=== PATIENT | male | born 1955 | race Caucasian/White ===

== ENCOUNTER 2020-09-02 09:01 | Outpatient (REF) | payer MEDICARE, MEDICAID, SELFPAY ==
[2020-09-02 11:07] LABS: Alanine Aminotransferase 22 U/L (0-40); Albumin Level 3.5 g/dL (3.5-5.0); Alkaline Phosphatase 70 U/L (39-117); Anion Gap 13 (12-20); Aspartate Amino Transferase 18 U/L (5-37); Bilirubin Total 0.5 mg/dL (0.0-1.0); Blood Urea Nitrogen 19 mg/dL (9-16); Calcium 8.9 mg/dL (8.4-10.2); Carbon Dioxide 31 mmol/L (22-29); Chloride 101 mmol/L (96-108); Estimated Glomerular Filt Rate > 60; Glucose Random 89 mg/dL (60-115); Potassium 4.7 mmol/L (3.3-5.1); Sodium 140 mmol/L (135-145); Total Protein 7.2 g/dL (6.5-8.0); Uric Acid 4.9 mg/dL (3.4-7.0)
== END 2020-09-02 09:02 | disposition home or self-care (01) ==
LOC: HO.LAB 09:01
PROVIDERS: PCP Internal Medicine; Visit Provider Student in an Organized Health Care Education/Training Program
DX: M1A.00X0 Idiopathic chronic gout, unspecified site, without tophus (tophi) (principal)
CPT/HCPCS: 36415; 80053; 84550; 99212

== ENCOUNTER → 2021-09-03 09:56 | Outpatient (BNVA) | payer MEDICARE, SELFPAY | PROVIDERS: PCP Internal Medicine; Visit Provider Nurse Practitioner Family | DX: Z13.89 Encounter for screening for other disorder (principal) | CPT/HCPCS: 99212 ==

== ENCOUNTER 2021-09-03 10:50 | Outpatient (REF) | payer MEDICARE, MEDICAID, SELFPAY ==
[2021-09-03 12:26] LABS: Alanine Aminotransferase 25 U/L (0-40); Albumin Level 3.8 g/dL (3.5-5.0); Alkaline Phosphatase 72 U/L (39-117); Anion Gap 12 (12-20); Aspartate Amino Transferase 21 U/L (5-37); Bilirubin Total 0.9 mg/dL (0.0-1.0); Blood Urea Nitrogen 17 mg/dL (9-16); Calcium 9.7 mg/dL (8.4-10.2); Carbon Dioxide 31 mmol/L (22-29); Chloride 102 mmol/L (96-108); Estimated Glomerular Filt Rate > 60; Glucose Random 87 mg/dL (60-115); Potassium 4.4 mmol/L (3.3-5.1); Sodium 141 mmol/L (135-145); Total Protein 7.6 g/dL (6.5-8.0); Uric Acid 6.2 mg/dL (3.4-7.0)
== END 2021-09-03 10:51 | disposition home or self-care (01) ==
LOC: HO.LAB 10:50
PROVIDERS: PCP Internal Medicine; Visit Provider Nurse Practitioner Family
DX: M1A.00X0 Idiopathic chronic gout, unspecified site, without tophus (tophi) (principal)
CPT/HCPCS: 36415; 80053; 84550; 99212

== ENCOUNTER 2022-03-10 11:13 | Outpatient (REF) | payer MEDICARE, MEDICAID, SELFPAY ==
[2022-03-10 12:43] LABS: Blood Urea Nitrogen 23 mg/dL (9-16); Estimated Glomerular Filt Rate > 60; Uric Acid 5.9 mg/dL (3.4-7.0)
== END 2022-03-10 11:14 | disposition home or self-care (01) ==
LOC: HO.LAB 11:13
PROVIDERS: PCP Internal Medicine; Visit Provider Nurse Practitioner Family
DX: M10.9 Gout, unspecified (principal)
CPT/HCPCS: 36415; 82565; 84520; 84550

== ENCOUNTER → 2022-03-15 09:54 | Outpatient (BNVA) | payer MEDICARE, MEDICAID, SELFPAY | PROVIDERS: PCP Internal Medicine; Visit Provider Nurse Practitioner Family | DX: M1A.00X0 Idiopathic chronic gout, unspecified site, without tophus (tophi) (principal) | CPT/HCPCS: 99212 ==

== ENCOUNTER 2023-04-05 13:56 | Outpatient (AMB) | payer MEDICARE, MEDICAID, SELFPAY ==
--- NOTE | 2023-04-05 13:59 | MHC.OFFVIS ---
Intake Vital Signs 04/05/23 14:01 Height 5 ft 3 in Weight 150 lb 5.684 oz BMI 26.6 BP 126/72 Blood Pressure Location Rt brachial Position Sitting Temp 97.3 F Temp Source Skin Intake Visit Reasons: gout Intake Note: Pt last seen 03/15/22 by khloe Duarte uric acid 5.13 March 2022. Gout well controlled on allopurinol 100mg daily and colchicine prn. Admits 1 flare up in September . 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 Accompanied by: [facility] nurse Isaura Allergies No Known Allergies Allergy (Verified 04/05/23 14:04) Medication List - Last Reconciled 04/05/23 by Eligio Zapata MD acetaminophen (Tylenol) 650 mg PO Q6H PRN allopurinol 100 mg PO DAILY ammonium lactate 12% 1 appl topical BID atorvastatin 10 mg PO DAILY bacitracin zinc topical bisacodyl 10 mg OR DAILY PRN clotrimazole 1% 1 appl topical QAM AND QHS colchicine (gout) (Colcrys) 0.6 mg PO DAILY PRN docusate sodium 100 mg PO BID finasteride 5 mg PO DAILY ibuprofen 200 mg PO Q6H PRN levothyroxine 100 mcg PO DAILY polyethylene glycol 3350 17 grams PO DAILY selenium sulfide 1% (Anti-Dandruff) mL topical tamsulosin 0.4 mg PO DAILY terbinafine HCl 1% appl topical BEDTIME HPI HPI Comments History of Present Illness Details 66yoM with PMH significant for Down Syndrome presents for follow-up of gout. He is accompanied today by nursing staff. He was last seen by Jennifer Wilkins 03/2022 ?Taking Allopurinol 100mg daily. On p.r.n. colchicine Per his nurse, patient had 1 gout flare-up back in September of 2022. Treated with colchicine. No gout flare-ups otherwise. She states that over the last year he has been getting more stiff in the morning. Generalized stiffness improved with Tylenol. Denied any swollen joints. [facility] Medical History Gastrointestinal bleed High myopia Thalassemia minor Urinary retention Cataract of both eyes Hyperlipidemia Surgical History No pertinent past surgical history Social History Household Members: Other Housing: Assisted Living Facility Alcohol intake: never Patient Tobacco Use Status: Never used Tobacco Review of Systems Const Details: Patient has down syndrome, is mentally retarded and does not verbalize Unobtainable due to mental status Physical Exam Vital Signs: Last Vital Signs Temp 97.3 F 04/05/23 14:01 BP 126/72 04/05/23 14:01 BMI result Body Mass Index 26.6 Const General: cooperative, healthy appearing and comfortable Nutritional Appearance: overweight Limitations: no limitations HEENT Other: Down syndrome facies Head: Yes normocephalic and Yes atraumatic Mouth: moist mucous membranes Resp Effort & Inspection: normal respiratory effort and able to speak in complete sentences Auscultation: clear to auscultation bilaterally Skin Other: Purple cool upper and lower extremities Normal nailfold capillaroscopy Extrem Other: No active synovitis Assessment & Plan Assessment & Plan (1) Gout: Comment: Allopurinol: July 2018 to present Code(s): M10.9 - Gout, unspecified Qualifiers: Gout site: unspecified site Gout etiology: idiopathic Chronicity: chronic Presence of tophus: without tophus Qualified Code(s): M1A.00X0 - Idiopathic chronic gout, unspecified site, without tophus (tophi) Plan: 67-year-old male with Down syndrome and gout presents for follow-up.? First attack in August 2017 in his foot, second attack in May 2018 in his L knee. Has never undergone arthrocentesis for crystal analysis. On Allopurinol 100mg daily since Jul 2018. Per nursing staff, patient had 1 gout flare-up 6 months ago improved with colchicine. ? Continue allopurinol 100 mg daily. Continue colchicine 0.6 mg as needed for flare-ups. Check uric acid level Follow-up in 6 month (2) Osteoarthritis: Code(s): M19.90 - Unspecified osteoarthritis, unspecified site Qualifiers: Osteoarthritis location: multiple joints Osteoarthritis type: primary Qualified Code(s): M15.9 - Polyosteoarthritis, unspecified Plan: Per nurse over the last year patient has had generalized morning stiffness that improves with Tylenol. Stiffness lasts about 1 hour. Upon evaluation today I do not see any active synovitis. I believe this stiffness is likely due to osteoarthritis. Can take 650 mg daily as a standing dose. Plan I spent 27 minutes reviewing patient's chart, evaluating patient, ordering diagnostic workup, counseling patient and documenting in the chart Orders: Orders Uric Acid Today M10.9 - Gout, unspecified Comprehensive Met. Panel Today M10.9 - Gout, unspecified Coding Level of Care Code Est Pt Level 4 (69137) Diagnoses Idiopathic chronic gout without tophus, unspecified site M1A.00X0 Gout site: unspecified site Gout etiology: idiopathic Chronicity: chronic Presence of tophus: without tophus Primary osteoarthritis involving multiple joints M15.9 Osteoarthritis location: multiple joints Osteoarthritis type: primary
[2023-04-05 14:01] VITALS: BP 126/72; TEMP 36.3; BMI 26.6
== END 2023-04-05 14:28 | disposition home or self-care (01) ==
PROVIDERS: PCP Internal Medicine; Visit Provider Student in an Organized Health Care Education/Training Program
DX: M1A.00X0 Idiopathic chronic gout, unspecified site, without tophus (tophi) (principal); M15.9 Polyosteoarthritis, unspecified
CPT/HCPCS: 99214

== ENCOUNTER → 2023-04-05 13:56 | Outpatient (BNVA) | payer MEDICARE, MEDICAID, SELFPAY | PROVIDERS: Visit Provider Student in an Organized Health Care Education/Training Program | DX: M1A.00X0 Idiopathic chronic gout, unspecified site, without tophus (tophi) (principal); M15.9 Polyosteoarthritis, unspecified; Z79.899 Other long term (current) drug therapy | CPT/HCPCS: 99212 ==

== ENCOUNTER 2023-08-10 12:56 | Outpatient (AMB) | payer MEDICARE, MEDICAID, SELFPAY ==
--- NOTE | 2023-08-10 13:05 | MHC.OFFVIS ---
Intake Vital Signs 08/10/23 13:06 Height 5 ft 3 in Weight 151 lb 2 oz BMI 26.8 BP 124/76 Blood Pressure Location Rt brachial Position Sitting Respiration 16 Pulse 72 Pulse Source Palpation Intake Visit Reasons: ENP-Alzheimer's dementia Intake Note: Pt presents to the office for a new pt evaluation for dementia. Pt is here with ASIF Delarosa from the assisted living facility pt resides in. She reports pt has been having some confusion and trouble entering through doorways as well as following directions for about a year now. Cruise Coordinator Required: No Allergies No Known Allergies Allergy (Verified 08/10/23 13:06) Medication List - Last Reconciled 08/10/23 by Marlys Morrison MD acetaminophen (Tylenol) 650 mg (2 x 325 mg) PO .QD allopurinol 100 mg PO DAILY ammonium lactate 12% 1 appl topical BID atorvastatin 10 mg PO DAILY bacitracin zinc topical clotrimazole 1% 1 appl topical QAM AND QHS colchicine (Colcrys) 0.6 mg PO DAILY PRN docusate sodium 100 mg PO BID donepezil 10 mg PO BEDTIME finasteride 5 mg PO DAILY ibuprofen 200 mg PO Q6H PRN levothyroxine 100 mcg PO DAILY polyethylene glycol 3350 17 grams PO DAILY selenium sulfide 1% (Anti-Dandruff) mL topical tamsulosin 0.4 mg PO DAILY terbinafine HCl 1% appl topical BEDTIME HPI HPI Comments History of Present Illness Details 68y/o male with Downs syndrome comes here for evaluation of possible dementia He is accompanied by caregivers form [facility]. [facility] staff [facility] have been noticing a progressive decline in his cognition and behavior for past 2 years. He has trouble following instructions, has trouble recognizing people, has trouble with his ADLS ( he used to make his own Lunch ) He has difficulty dressing showering eating etc.He is more stubborn and does not follow instructions.He probably has hallucinations- he was seen picking some non existent thing form the floor.He has excessive daytime sleepiness. [facility] Medical History (Updated 08/10/23 @ 13:36 by Marlys Morrison MD) Alzheimer's dementia Hypothyroidism Prediabetes Vitamin D deficiency Gastrointestinal bleed High myopia Thalassemia minor Urinary retention Cataract of both eyes Hyperlipidemia Surgical History No pertinent past surgical history Social History Household Members: Other Housing: Assisted Living Facility Alcohol intake: never Patient Tobacco Use Status: Never used Tobacco Physical Exam Vital Signs: Last Vital Signs Pulse 72 08/10/23 13:06 Resp 16 08/10/23 13:06 BP 124/76 08/10/23 13:06 BMI result Body Mass Index 26.8 Const Other: unable to follow instructions exam was limited General: cooperative Neuro Other: mild wide based gait , waddling Moves all his extremities Tone - normal Face symmetrical Unable to examine pupils EOM full - dysconjugate gaze No tremors General: moves all extremities Deep tendon reflexes (DTR's): Right triceps reflex intensity grade: 1+, Left triceps reflex intensity grade: 1+, Rt Biceps (C5, C6): 1+, Left biceps reflex intensity grade: 1+, Right brachioradialis reflex intensity grade: 1+, Left brachioradialis reflex intensity grade: 1+, Right patellar reflex intensity grade: 1+ and Left patellar reflex intensity grade: 1+ Assessment & Plan Assessment & Plan (1) Alzheimer's dementia: Comment: moderate Code(s): G30.9 - Alzheimer's disease, unspecified; F02.80 - Dementia in other diseases classified elsewhere, unspecified severity, without behavioral disturbance, psychotic disturbance, mood disturbance, and anxiety Plan CT Brain- to evaluate Labs- Vit B 12 TSH CBC CMP RPR I will trial him Orders: Orders TSH reflex Free T4 Today F02.80 - Dementia in other diseases classified elsewhere, unspecified severity, without behavioral disturbance, psychotic disturbance, mood disturbance, and anxiety, G30.9 - Alzheimer's disease, unspecified Vitamin B12 and Folate Today F02.80 - Dementia in other diseases classified elsewhere, unspecified severity, without behavioral disturbance, psychotic disturbance, mood disturbance, and anxiety, G30.9 - Alzheimer's disease, unspecified Comprehensive Met. Panel Today F02.80 - Dementia in other diseases classified elsewhere, unspecified severity, without behavioral disturbance, psychotic disturbance, mood disturbance, and anxiety, G30.9 - Alzheimer's disease, unspecified Complete Blood Count Auto Diff Today F02.80 - Dementia in other diseases classified elsewhere, unspecified severity, without behavioral disturbance, psychotic disturbance, mood disturbance, and anxiety, G30.9 - Alzheimer's disease, unspecified RPR Monitor reflex titer Today F02.80 - Dementia in other diseases classified elsewhere, unspecified severity, without behavioral disturbance, psychotic disturbance, mood disturbance, and anxiety, G30.9 - Alzheimer's disease, unspecified CT head/brain wo IV con Today F03.90 - Unspecified dementia, unspecified severity, without behavioral disturbance, psychotic disturbance, mood disturbance, and anxiety Erythrocyte Sedimentation Rate Today F02.80 - Dementia in other diseases classified elsewhere, unspecified severity, without behavioral disturbance, psychotic disturbance, mood disturbance, and anxiety, G30.9 - Alzheimer's disease, unspecified Medications: New donepezil start with 1/2 tab qd for 2 weeks then 1 tab qd 10 mg PO BEDTIME 30 tabs 6RF Coding Level of Care Code New Pt Level 4 (76032) Diagnoses Alzheimer's dementia G30.9; F02.80
[2023-08-10 13:06] VITALS: BP 124/76; PULSE 72; RESP 16; BMI 26.8
== END 2023-08-10 13:47 | disposition home or self-care (01) ==
LOC: HO.HSMS 12:57
PROVIDERS: PCP Internal Medicine; Visit Provider Psychiatry & Neurology Neurology
DX: G30.9 Alzheimer's disease, unspecified (principal); F02.80 Dementia in other diseases classified elsewhere, unspecified severity, without behavioral disturbance, psychotic disturbance, mood disturbance, and anxiety
CPT/HCPCS: 99204

== ENCOUNTER → 2023-08-10 12:56 | Outpatient (BNVA) | payer MEDICARE, MEDICAID, SELFPAY | PROVIDERS: PCP Internal Medicine; Visit Provider Psychiatry & Neurology Neurology | DX: G30.9 Alzheimer's disease, unspecified (principal); F02.80 Dementia in other diseases classified elsewhere, unspecified severity, without behavioral disturbance, psychotic disturbance, mood disturbance, and anxiety; Z79.899 Other long term (current) drug therapy | CPT/HCPCS: 36415; 80053; 82607; 82746; 84439; 84443; 85025; 85652; 86592; 99202 ==

== ENCOUNTER 2023-08-10 13:49 | Outpatient (REF) | payer MEDICARE, MEDICAID, SELFPAY ==
[2023-08-10 17:41] LABS: MANUAL DIFF FLAG NO
[2023-08-10 17:46] LABS: Basophils Absolute Auto 0.2 X10*3/uL (0.0-0.2); Eosinophils Absolute Auto 0.2 X10*3/uL (0.0-0.4); Eosinophils Percent Auto 2.2 % (0-4); Hematocrit 36.7 % (42.0-52.0); Hemoglobin 13.3 g/dl (14.0-18.0); Imm Gran Abs Auto 0.06 X10*3/uL (0.00-0.03); Imm Gran Pct Auto 0.8 % (0.0-0.4); Lymphocytes Absolute Auto 1.7 X10*3/uL (1.2-4.9); Lymphocytes Percent Auto 22.2 % (20-40); Mean Corpuscular HGB Conc 36.2 g/dl (31.0-36.0); Mean Corpuscular Hemoglobin 27.7 pg (27.0-33.0); Mean Corpuscular Volume 76.5 fL (80.0-98.0); Mean Platelet Volume 10.4 fL (9.4-12.4); Monocytes Absolute Auto 0.8 X10*3/uL (0.1-1.2); Monocytes Percent Auto 10.2 % (2-11); Neutrophils Absolute Auto 4.7 x10*3/uL (2.0-8.3); Neutrophils Percent Auto 62.6 % (45-73); Platelet Count 301 X10*3/uL (160-400); Red Cell Distribution Width 20.9 % (11.0-16.0); White Blood Count 7.4 X10*3/uL (4.8-10.8)
[2023-08-10 18:33] LABS: Erythrocyte Sedimentation Rate 32 MM/HR (0-15); Folate 8.4 ng/mL (> or = 4.0); Vitamin B12 277 pg/mL (200-900)
[2023-08-10 18:35] LABS: Alanine Aminotransferase 22 U/L (0-40); Albumin Level 3.6 g/dL (3.5-5.0); Alkaline Phosphatase 99 U/L (39-117); Anion Gap 10 (12-20); Aspartate Amino Transferase 20 U/L (5-37); Bilirubin Total 0.3 mg/dL (0.0-1.0); Blood Urea Nitrogen 23 mg/dL (9-16); Calcium 8.8 mg/dL (8.4-10.2); Carbon Dioxide 28 mmol/L (22-29); Chloride 104 mmol/L (96-108); Glucose Random 101 mg/dL (60-115); Potassium 3.6 mmol/L (3.3-5.1); Sodium 138 mmol/L (135-145); TSH reflex Free T4 7.35 uIU/mL (0.32-4.0); Total Protein 8.1 g/dL (6.5-8.0)
[2023-08-10 19:10] LABS: Free T4 (Free Thyroxine) 0.92 ng/dL (0.71-1.85)
[2023-08-10 19:14] LABS: Estimated Glomerular Filt Rate > 60
[2023-08-14 08:14] LABS: RPR Rapid Plasma Reagin NON-REACTIVE (NON-REACTIVE)
== END 2023-08-10 13:50 | disposition home or self-care (01) ==
LOC: HO.HKASLDS 13:49
PROVIDERS: Visit Provider Psychiatry & Neurology Neurology
DX: Z13.89 Encounter for screening for other disorder (principal)
CPT/HCPCS: 36415; 80053; 82607; 82746; 84439; 84443; 85025; 85652; 86592

== ENCOUNTER 2023-09-29 09:04 | Outpatient (REF) | payer MEDICARE, MEDICAID, SELFPAY ==
--- NOTE | ~2023-09-29 | CT_ITS ---
EXAMINATION: CT HEAD WITHOUT CONTRAST CLINICAL INFORMATION: Dementia. COMPARISON: None available. TECHNIQUE: Contiguous axial imaging was performed from the skull base to vertex without intravenous administration of contrast. This CT examination was performed using dose optimization techniques as appropriate, variously including the following: *Automated exposure control *Adjustment of mA and/or kV according to patient size (this includes techniques or standardized protocols for targeted exams where dose is matched to indication/reason for exam; i.e. extremities or head) *Use of iterative reconstruction technique DLP: 727 mGy-cm FINDINGS: Moderate diffuse commensurate prominence of ventricles and sulci is noted in combination with qualitative additional focal prominence of the temporal horns of the lateral ventricles. No intracranial hemorrhage, tumors or acute infarcts noted. Mild scattered subcortical and periventricular white matter patchy hypodensities are visualized. The orbits and globes are normal in appearance. No significant opacification of the visualized paranasal sinuses, mastoid air cells and middle ear cavities. CT/CT head/brain wo IV con IMPRESSION: *No acute intracranial abnormalities. *Moderate diffuse parenchymal volume loss the brain and additional focal prominence of the temporal horns of the lateral ventricles suggestive of underlying hippocampal volume loss. In the correct clinical setting, these latter findings could correlate with Alzheimer's type neurodegeneration.
== END 2023-09-29 09:05 | disposition home or self-care (01) ==
LOC: HO.CT 09:04
PROVIDERS: PCP Student in an Organized Health Care Education/Training Program; Visit Provider Psychiatry & Neurology Neurology
DX: F03.90 Unspecified dementia, unspecified severity, without behavioral disturbance, psychotic disturbance, mood disturbance, and anxiety (principal)
CPT/HCPCS: 70450

== ENCOUNTER 2023-10-02 11:11 | Outpatient (REF) | payer MEDICARE, MEDICAID, SELFPAY ==
[2023-10-02 13:07] LABS: Alanine Aminotransferase 32 U/L (0-40); Albumin Level 3.7 g/dL (3.5-5.0); Alkaline Phosphatase 80 U/L (39-117); Anion Gap 13 (12-20); Aspartate Amino Transferase 25 U/L (5-37); Bilirubin Total 0.5 mg/dL (0.0-1.0); Blood Urea Nitrogen 21 mg/dL (9-16); Calcium 9.3 mg/dL (8.4-10.2); Carbon Dioxide 28 mmol/L (22-29); Chloride 103 mmol/L (96-108); Estimated Glomerular Filt Rate > 60; Glucose Random 81 mg/dL (60-115); Potassium 3.8 mmol/L (3.3-5.1); Sodium 140 mmol/L (135-145); Total Protein 7.6 g/dL (6.5-8.0); Uric Acid 6.3 mg/dL (3.4-7.0)
== END 2023-10-02 11:12 | disposition home or self-care (01) ==
LOC: HO.LAB 11:11
PROVIDERS: PCP Student in an Organized Health Care Education/Training Program; Visit Provider Student in an Organized Health Care Education/Training Program
DX: M10.9 Gout, unspecified (principal)
CPT/HCPCS: 36415; 80053; 84550

== ENCOUNTER 2023-10-05 10:46 | Outpatient (AMB) | payer MEDICARE, MEDICAID, SELFPAY ==
--- NOTE | 2023-10-05 10:51 | MHC.OFFVIS ---
Vital Signs 10/05/23 10:52 Height 5 ft 3 in Weight 149 lb 4.047 oz BMI 26.4 BP 146/82 H Blood Pressure Location Rt brachial Position Sitting Intake Visit Reasons: Gout/LM Intake Note: Patient last seen 04/05/23 presents today for follow up and test results. No flare ups and joint pain controlled doing tylenol in the am. Pathology Technician Required: No Accompanied by: [facility] Staff Allergies No Known Allergies Allergy (Verified 10/05/23 10:54) Medication List - Last Reconciled 10/05/23 by Eligio Zapata MD acetaminophen 650 mg (2 x 325 mg) PO QAM allopurinol 100 mg PO QAM ammonium lactate 12% 1 appl topical BID atorvastatin 10 mg PO DAILY bacitracin zinc topical clotrimazole 1% 1 appl topical QAM AND QHS colchicine (Colcrys) 0.6 mg PO DAILY PRN docusate sodium 100 mg PO BID donepezil 10 mg PO QAM finasteride 5 mg PO DAILY ibuprofen 200 mg PO Q6H PRN levothyroxine 125 mcg PO DAILY polyethylene glycol 3350 17 grams PO DAILY selenium sulfide 1% (Anti-Dandruff) mL topical tamsulosin 0.4 mg PO DAILY terbinafine HCl 1% appl topical BEDTIME HPI Comments Details: 68yoM with PMH significant for Down Syndrome presents for follow-up of gout. He is accompanied today by nursing staff. Was last seen 04/2023 ?Taking Allopurinol 100mg daily. On p.r.n. colchicine. Has not had any gout flare-ups since last visit. 650 mg of Tylenol daily significantly helps his generalized arthritis. [facility] Medical History Alzheimer's dementia Hypothyroidism Prediabetes Vitamin D deficiency Gastrointestinal bleed High myopia Thalassemia minor Urinary retention Cataract of both eyes Hyperlipidemia Surgical History No pertinent past surgical history Social History Household Members: Other Housing: Assisted Living Facility Alcohol intake: never Patient Tobacco Use Status: Never used Tobacco Review of Systems Const Details: Down syndrome Unobtainable due to mental status Physical Exam Vital Signs: Last Vital Signs BP 146/82 H 10/05/23 10:52 BMI result Body Mass Index 26.4 Const General: cooperative, healthy appearing and comfortable Nutritional Appearance: overweight Limitations: no limitations HEENT Other: Down syndrome facies Head: Yes normocephalic and Yes atraumatic Mouth: moist mucous membranes Eyes Other: Right lower lid cyst medially, does not seem to be symptomatic Resp Effort & Inspection: normal respiratory effort and able to speak in complete sentences Auscultation: clear to auscultation bilaterally Skin Other: Purple cool upper and lower extremities Normal nailfold capillaroscopy Extrem Other: No active synovitis No tophi noted Assessment & Plan Assessment & Plan (1) Gout: Comment: Allopurinol: July 2018 to present Code(s): M10.9 - Gout, unspecified Category: Medical Qualifiers: Gout site: unspecified site Gout etiology: idiopathic Chronicity: chronic Presence of tophus: without tophus Qualified Code(s): M1A.00X0 - Idiopathic chronic gout, unspecified site, without tophus (tophi) Plan: 68-year-old male with Down syndrome and gout presents for follow-up.? First attack in August 2017 in his foot, second attack in May 2018 in his L knee. Has never undergone arthrocentesis for crystal analysis. On Allopurinol 100mg daily since Jul 2018. Per nursing staff, patient is doing quite well in terms of his gout. Has not had any gout flare-ups since last visit. Has not used colchicine in a very long time ? Uric acid 6.3 mg/dL. Not at target. Increase allopurinol to 150 mg daily. Continue colchicine 0.6 mg as needed for flare-ups. Labs before next visit in 6 months (2) Osteoarthritis: Code(s): M19.90 - Unspecified osteoarthritis, unspecified site Category: Medical Qualifiers: Osteoarthritis location: multiple joints Osteoarthritis type: primary Qualified Code(s): M15.9 - Polyosteoarthritis, unspecified Plan: Has been taking Tylenol 650 mg daily as a standing dose for generalized osteoarthritis. Was quite helpful. Continue the same Plan I spent 27 minutes reviewing patient's chart, evaluating patient, ordering diagnostic workup, counseling patient's nursing staff and documenting in the chart Orders: Orders Comprehensive Met. Panel 6 Months M1A.00X0 - Idiopathic chronic gout, unspecified site, without tophus (tophi) Uric Acid 6 Months M1A.00X0 - Idiopathic chronic gout, unspecified site, without tophus (tophi) Medications: Changed From allopurinol 100 mg PO QAM 30 tabs 1RF M1A.00X0 - Idiopathic chronic gout, unspecified site, without tophus (tophi) To allopurinol 150 mg (1.5 x 100 mg) PO QAM 135 tabs 1RF M1A.00X0 - Idiopathic chronic gout, unspecified site, without tophus (tophi) Coding Level of Care Code Est Pt Level 4 (02696) Diagnoses Idiopathic chronic gout without tophus, unspecified site M1A.00X0 Gout site: unspecified site Gout etiology: idiopathic Chronicity: chronic Presence of tophus: without tophus Primary osteoarthritis involving multiple joints M15.9 Osteoarthritis location: multiple joints Osteoarthritis type: primary
[2023-10-05 10:52] VITALS: BP 146/82; BMI 26.4
== END 2023-10-05 11:08 | disposition home or self-care (01) ==
PROVIDERS: PCP Student in an Organized Health Care Education/Training Program; Visit Provider Student in an Organized Health Care Education/Training Program
DX: M1A.00X0 Idiopathic chronic gout, unspecified site, without tophus (tophi) (principal); M15.9 Polyosteoarthritis, unspecified
CPT/HCPCS: 99214

== ENCOUNTER → 2023-10-05 10:46 | Outpatient (BNVA) | payer MEDICARE, MEDICAID, SELFPAY | PROVIDERS: PCP Student in an Organized Health Care Education/Training Program; Visit Provider Student in an Organized Health Care Education/Training Program | DX: M1A.00X0 Idiopathic chronic gout, unspecified site, without tophus (tophi) (principal); M15.9 Polyosteoarthritis, unspecified | CPT/HCPCS: 99212 ==

== ENCOUNTER 2024-02-14 10:32 | Outpatient (AMB) | payer MEDICARE, MEDICAID, SELFPAY ==
[2024-02-14 10:59] VITALS: PULSE 116
--- NOTE | 2024-02-14 10:59 | A.OFFVIS_ITS ---
Vital Signs 02/14/24 10:59 Height 5 ft 3 in Pulse 116 H Pulse Source Pulse Oximeter Intake Visit Reasons: 4 Month F/U Intake Note: Patient presents for 4 month follow up Allergies No Known Allergies Allergy (Verified 02/14/24 10:59) Medication List - Last Reconciled 02/14/24 by GREGORIO Montes acetaminophen 650 mg (2 x 325 mg) PO QAM allopurinol 150 mg (1.5 x 100 mg) PO QAM ammonium lactate 12% 1 appl topical BID atorvastatin 10 mg PO DAILY bacitracin zinc topical clotrimazole 1% 1 appl topical QAM AND QHS colchicine (Colcrys) 0.6 mg PO DAILY PRN docusate sodium 100 mg PO BID donepezil 10 mg PO QAM finasteride 5 mg PO DAILY ibuprofen 200 mg PO Q6H PRN levothyroxine 125 mcg PO DAILY polyethylene glycol 3350 17 grams PO DAILY selenium sulfide 1% (Anti-Dandruff) mL topical tamsulosin 0.4 mg PO DAILY terbinafine HCl 1% appl topical BEDTIME HPI Comments Details: 68-yr-old male presents for f/u visit of dementia. Pt is accompanied by his long term staff and nurse. Pt denies any significant interval medical changes. Pt has been having bouts of crying- sometimes he just cries and staff can easily distract him. Other times, he may cry, and he will hold his head or say he I cannot do it . He has had this infrequently in the past, but now has episodes on and off (more so in am and evening) most days. The donepazil has helped him be more alert, but did cause increased insomnia. Was up walking during the night. Donepazil was switched from qhs to qam. However still some sleep issues. Prn Melatonin 5mg helps- they are wondering if this could be more scheduled. He eats and drinks well. Labs reviewed- notable for elevated TSH ~7, ESR 32. [facility] Medical History Alzheimer's dementia Hypothyroidism Prediabetes Vitamin D deficiency Gastrointestinal bleed High myopia Thalassemia minor Urinary retention Cataract of both eyes Hyperlipidemia Surgical History No pertinent past surgical history Social History Household Members: Other Housing: Assisted Living Facility Alcohol intake: never Patient Tobacco Use Status: Never used Tobacco Review of Systems Neuro Reports confusion Psych Reports confusion Physical Exam Vital Signs: Last Vital Signs Pulse 116 H 02/14/24 10:59 Const General: cooperative, no acute distress, alert and confusion Orientation/consciousness: confusion Resp Effort & Inspection: normal respiratory effort and able to speak in complete sentences Neuro Other: Alert. Confused. Makes simple statements- such as Celebrate . Not consistently applicable to current discussion. Sitting upright in w/c. General: confusion Psych Appearance: well kempt Attitude: cooperative Assessment & Plan Assessment & Plan (1) Alzheimer's dementia: Comment: moderate Code(s): G30.9 - Alzheimer's disease, unspecified; F02.80 - Dementia in other diseases classified elsewhere, unspecified severity, without behavioral disturbance, psychotic disturbance, mood disturbance, and anxiety Category: Medical (2) Down syndrome: Code(s): Q90.9 - Down syndrome, unspecified Category: Medical (3) Vitamin D deficiency: Code(s): E55.9 - Vitamin D deficiency, unspecified Category: Medical Plan Continue Donepazil 10mg qam. Start Memantine ER 7mg qam x's 30 days- if well tolerated will increase by 7mg qd per month- up to 28ng qd. May help mood/crying. Melatonin 5mg qd. Recheck labs- to f/u on elevated ESR, vit D def, and to round out dementia work- up. f/u in 6 months or sooner prn. Orders: Orders Comprehensive Met. Panel Today E03.9 - Hypothyroidism, unspecified, E55.9 - Vitamin D deficiency, unspecified, F02.80 - Dementia in other diseases classified elsewhere, unspecified severity, without behavioral disturbance, psychotic disturbance, mood disturbance, and anxiety, G30.9 - Alzheimer's disease, unspecified Methylmalonic Acid Today E03.9 - Hypothyroidism, unspecified, E55.9 - Vitamin D deficiency, unspecified, F02.80 - Dementia in other diseases classified elsewhere, unspecified severity, without behavioral disturbance, psychotic distu rbance, mood disturbance, and anxiety, G30.9 - Alzheimer's disease, unspecified Vitamin B12 and Folate Today E03.9 - Hypothyroidism, unspecified, E55.9 - Vitamin D deficiency, unspecified, F02.80 - Dementia in other diseases classified elsewhere, unspecified severity, without behavioral disturbance, psychotic disturbance, mood disturbance, and anxiety, G30.9 - Alzheimer's disease, unspecified Complete Blood Count Auto Diff Today E03.9 - Hypothyroidism, unspecified, E55.9 - Vitamin D deficiency, unspecified, F02.80 - Dementia in other diseases classified elsewhere, unspecified severity, without behavioral disturbance, psychotic disturbance, mood disturbance, and anxiety, G30.9 - Alzheimer's disease, unspecified Erythrocyte Sedimentation Rate Today E03.9 - Hypothyroidism, unspecified, E55.9 - Vitamin D deficiency, unspecified, F02.80 - Dementia in other diseases classified elsewhere, unspecified severity, without behavioral disturbance, psychotic disturbance, mood disturbance, and anxiety, G30.9 - Alzheimer's disease, unspecified Homocysteine Today E03.9 - Hypothyroidism, unspecified, E55.9 - Vitamin D deficiency, unspecified, F02.80 - Dementia in other diseases classified elsewhere, unspecified severity, without behavioral disturbance, psychotic disturbance, mood disturbance, and anxiety, G30.9 - Alzheimer's disease, unspecified Vitamin D 25-OH (D2 and D3) Today E03.9 - Hypothyroidism, unspecified, E55.9 - Vitamin D deficiency, unspecified, F02.80 - Dementia in other diseases classified elsewhere, unspecified severity, without behavioral disturbance, psychotic disturbance, mood disturbance, and anxiety, G30.9 - Alzheimer's disease, unspecified TSH reflex Free T4 Today E03.9 - Hypothyroidism, unspecified, E55.9 - Vitamin D deficiency, unspecified, F02.80 - Dementia in other diseases classified elsewhere, unspecified severity, without behavioral disturbance, psychotic disturbance, mood disturbance, and anxiety, G30.9 - Alzheimer's disease, unspecified CRP High Sensitivity Today E03.9 - Hypothyroidism, unspecified, E55.9 - Vitamin D deficiency, unspecified, F02.80 - Dementia in other diseases classified elsewhere, unspecified severity, without behavioral disturbance, psychotic disturbance, mood disturbance, and anxiety, G30.9 - Alzheimer's disease, unspecified Medications: New memantine then stop and increase to 14mg qd 7 mg PO DAILY 30 days 30 ea 0RF melatonin at 7pm 5 mg PO DAILY 30 days 30 tabs 6RF sleep Coding Level of Care Code Est Pt Level 4 (71631) Diagnoses Alzheimer's dementia G30.9; F02.80 Down syndrome Q90.9 Vitamin D deficiency E55.9
== END 2024-02-14 11:47 | disposition home or self-care (01) ==
PROVIDERS: PCP Internal Medicine; Visit Provider Nurse Practitioner Family
DX: G30.9 Alzheimer's disease, unspecified (principal); F02.80 Dementia in other diseases classified elsewhere, unspecified severity, without behavioral disturbance, psychotic disturbance, mood disturbance, and anxiety; Q90.9 Down syndrome, unspecified; E55.9 Vitamin D deficiency, unspecified
CPT/HCPCS: 99214

== ENCOUNTER 2024-02-14 11:48 | Outpatient (REF) | payer MEDICARE, MEDICAID, SELFPAY ==
[2024-02-14 17:34] LABS: MANUAL DIFF FLAG NO
[2024-02-14 17:45] LABS: Basophils Absolute Auto 0.2 X10*3/uL (0.0-0.2); Basophils Percent Auto 1.7 % (0-2); Eosinophils Absolute Auto 0.1 X10*3/uL (0.0-0.4); Eosinophils Percent Auto 0.6 % (0-4); Hematocrit 40.5 % (42.0-52.0); Hemoglobin 14.3 g/dl (14.0-18.0); Imm Gran Abs Auto 0.05 X10*3/uL (0.00-0.03); Imm Gran Pct Auto 0.5 % (0.0-0.4); Lymphocytes Absolute Auto 1.2 X10*3/uL (1.2-4.9); Lymphocytes Percent Auto 12.5 % (20-40); Mean Corpuscular HGB Conc 35.3 g/dl (31.0-36.0); Mean Corpuscular Hemoglobin 26.6 pg (27.0-33.0); Mean Corpuscular Volume 75.3 fL (80.0-98.0); Monocytes Absolute Auto 0.7 X10*3/uL (0.1-1.2); Monocytes Percent Auto 6.8 % (2-11); Neutrophils Absolute Auto 7.5 x10*3/uL (2.0-8.3); Neutrophils Percent Auto 77.9 % (45-73); Platelet Count 282 X10*3/uL (160-400); Red Blood Count 5.38 X10*6/uL (4.60-5.80); Red Cell Distribution Width 19.9 % (11.0-16.0); White Blood Count 9.7 X10*3/uL (4.8-10.8)
[2024-02-14 18:07] LABS: Alanine Aminotransferase 42 U/L (0-40); Albumin Level 3.9 g/dL (3.5-5.0); Alkaline Phosphatase 86 U/L (39-117); Anion Gap 9 (12-20); Aspartate Amino Transferase 22 U/L (5-37); Bilirubin Total 0.6 mg/dL (0.0-1.0); Blood Urea Nitrogen 23 mg/dL (9-16); Calcium 9.7 mg/dL (8.4-10.2); Carbon Dioxide 31 mmol/L (22-29); Chloride 106 mmol/L (96-108); Estimated Glomerular Filt Rate > 60; Glucose Random 104 mg/dL (60-115); Sodium 142 mmol/L (135-145); Total Protein 8.1 g/dL (6.5-8.0)
[2024-02-14 18:15] LABS: TSH reflex Free T4 4.34 uIU/mL (0.32-4.0)
[2024-02-14 18:29] LABS: Folate 10.4 ng/mL (> or = 4.0); Vitamin B12 380 pg/mL (200-900)
[2024-02-14 18:31] LABS: Erythrocyte Sedimentation Rate 25 MM/HR (0-15)
[2024-02-14 18:46] LABS: Free T4 (Free Thyroxine) 1.12 ng/dL (0.71-1.85)
[2024-02-15 14:43] LABS: CRP High Sensitivity 10.5 mg/L
[2024-02-15 19:18] LABS: Homocysteine 10.9 umol/L (<11.4)
[2024-02-17 17:14] LABS: Methylmalonic Acid 161 nmol/L (69-390)
[2024-02-20 15:18] LABS: Vitamin D 25-OH, D2 <4 ng/mL; Vitamin D 25-OH, D3 37 ng/mL; Vitamin D 25-OH, Total 37 ng/mL (30-100)
== END 2024-02-14 11:49 | disposition home or self-care (01) ==
LOC: HO.HKASLDS 11:48
PROVIDERS: Visit Provider Nurse Practitioner Family
DX: G30.9 Alzheimer's disease, unspecified (principal); F02.80 Dementia in other diseases classified elsewhere, unspecified severity, without behavioral disturbance, psychotic disturbance, mood disturbance, and anxiety; E55.9 Vitamin D deficiency, unspecified; E03.9 Hypothyroidism, unspecified; Q90.9 Down syndrome, unspecified
CPT/HCPCS: 36415; 80053; 82306; 82607; 82746; 83090; 83921; 84439; 84443; 85025; 85652; 86141; 99212

== ENCOUNTER 2024-04-06 10:54 | Outpatient (REF) | payer MEDICARE, MEDICAID, SELFPAY ==
[2024-04-06 11:23] LABS: Alanine Aminotransferase 55 U/L (0-40); Albumin Level 3.3 g/dL (3.5-5.0); Alkaline Phosphatase 83 U/L (39-117); Anion Gap 16 (12-20); Aspartate Amino Transferase 32 U/L (5-37); Bilirubin Total 0.4 mg/dL (0.0-1.0); Blood Urea Nitrogen 16 mg/dL (9-16); Calcium 9.2 mg/dL (8.4-10.2); Carbon Dioxide 27 mmol/L (22-29); Chloride 103 mmol/L (96-108); Estimated Glomerular Filt Rate > 60; Glucose Random 109 mg/dL (60-115); Potassium 4.4 mmol/L (3.3-5.1); Sodium 142 mmol/L (135-145); Total Protein 8.2 g/dL (6.5-8.0); Uric Acid 5.1 mg/dL (3.4-7.0)
== END 2024-04-06 10:55 | disposition home or self-care (01) ==
LOC: HO.LAB 10:54
PROVIDERS: PCP Student in an Organized Health Care Education/Training Program; Visit Provider Student in an Organized Health Care Education/Training Program
DX: M1A.00X0 Idiopathic chronic gout, unspecified site, without tophus (tophi) (principal)
CPT/HCPCS: 36415; 80053; 84550

== ENCOUNTER 2024-04-09 09:47 | Outpatient (AMB) | payer MEDICARE, MEDICAID, SELFPAY ==
--- NOTE | 2024-04-09 09:55 | A.OFFVIS_ITS ---
Vital Signs 04/09/24 10:02 Height 5 ft 3 in Weight 139 lb 8.842 oz BMI 24.7 BP 122/70 Blood Pressure Location Lt brachial Position Sitting Pulse 76 Pulse Source Auscultation Intake Visit Reasons: Gout/CM Intake Note: Patient presents for Gout. Allergies No Known Allergies Allergy (Verified 04/09/24 09:59) Medication List - Last Reconciled 04/09/24 by Eligio Zapata MD acetaminophen 650 mg (2 x 325 mg) PO QAM allopurinol 150 mg (1.5 x 100 mg) PO QAM ammonium lactate 12% 1 appl topical BID atorvastatin 10 mg PO DAILY bacitracin zinc topical clotrimazole 1% 1 appl topical QAM AND QHS colchicine (Colcrys) 0.6 mg PO DAILY PRN docusate sodium 100 mg PO BID donepezil 10 mg PO QAM 30 days ferrous sulfate 325 mg PO DAILY finasteride 5 mg PO DAILY ibuprofen 200 mg PO Q6H PRN levothyroxine 125 mcg PO DAILY melatonin 5 mg PO DAILY 30 days memantine 14 mg PO DAILY 30 days pantoprazole mg PO polyethylene glycol 3350 17 grams PO DAILY selenium sulfide 1% (Anti-Dandruff) mL topical tamsulosin 0.4 mg PO DAILY terbinafine HCl 1% appl topical BEDTIME HPI Comments Details: 68yoM with PMH significant for Down Syndrome presents for follow-up of gout. He is accompanied today by nursing staff. Was last seen 10/2023 ?Taking Allopurinol 150mg daily. On p.r.n. colchicine. Per nurse patient had a gout flare-up in November, he had redness and swelling of his toes, was unable to put any pressure on them. This was treated with colchicine. Has not had any gout flare-ups since. He takes Tylenol 650 mg every morning to help with generalized stiffness. [facility]LY [facility] Medical History Alzheimer's dementia Hypothyroidism Prediabetes Vitamin D deficiency Gastrointestinal bleed High myopia Thalassemia minor Urinary retention Cataract of both eyes Hyperlipidemia Surgical History No pertinent past surgical history Social History Household Members: Other Housing: Assisted Living Facility Alcohol intake: never Patient Tobacco Use Status: Never used Tobacco Review of Systems Const Details: Down syndrome Unobtainable due to mental status Physical Exam Vital Signs: Last Vital Signs BP 122/70 04/09/24 10:02 BMI result Body Mass Index 24.7 Const General: cooperative, healthy appearing and comfortable Nutritional Appearance: overweight Limitations: no limitations HEENT Other: Down syndrome facies Head: Yes normocephalic and Yes atraumatic Mouth: moist mucous membranes Resp Effort & Inspection: normal respiratory effort and able to speak in complete sentences Auscultation: clear to auscultation bilaterally Skin Other: Purple cool upper and lower extremities Normal nailfold capillaroscopy Extrem Other: No active synovitis No tophi noted Assessment & Plan Assessment & Plan (1) Gout: Comment: Allopurinol: July 2018 to present Code(s): M10.9 - Gout, unspecified Category: Medical Qualifiers: Gout site: unspecified site Gout etiology: idiopathic Chronicity: chronic Presence of tophus: without tophus Qualified Code(s): M1A.00X0 - Idiopathic chronic gout, unspecified site, without tophus (tophi) Plan: 68-year-old male with Down syndrome and gout presents for follow-up.? On allopurinol 150 mg daily. First attack in August 2017 in his foot, second attack in May 2018 in his L knee. Has never undergone arthrocentesis for crystal analysis. Per nurse patient has a gout flare-up in November affecting her toes. Treated with colchicine. No gout flare-ups since. Advised nurse to take pictures of any red or painful joints during a gout flare-up. Uric acid level is 5.1 mg/dL. At target. Continue allopurinol 150 mg daily Colchicine 0.6 mg once daily p.r.n. gout flare. Labs before next visit in 6 months (2) Osteoarthritis: Code(s): M19.90 - Unspecified osteoarthritis, unspecified site Category: Medical Qualifiers: Osteoarthritis location: multiple joints Osteoarthritis type: primary Qualified Code(s): M15.9 - Polyosteoarthritis, unspecified Plan: Has been taking Tylenol 650 mg daily as a standing dose for generalized osteoarthritis. Was quite helpful. Continue the same (3) LFT elevation: Code(s): R79.89 - Other specified abnormal findings of blood chemistry Category: Medical Plan: Follow-up with PCP Plan I spent 27 minutes reviewing patient's chart, evaluating patient, ordering di agnostic workup, counseling patient's nursing staff and documenting in the chart Orders: Orders Comprehensive Met. Panel 6 Months M1A.00X0 - Idiopathic chronic gout, unspecified site, without tophus (tophi) Uric Acid 6 Months M1A.00X0 - Idiopathic chronic gout, unspecified site, without tophus (tophi) Coding Level of Care Code Est Pt Level 4 (61701) Diagnoses Idiopathic chronic gout without tophus, unspecified site M1A.00X0 Gout site: unspecified site Gout etiology: idiopathic Chronicity: chronic Presence of tophus: without tophus Primary osteoarthritis involving multiple joints M15.9 Osteoarthritis location: multiple joints Osteoarthritis type: primary LFT elevation R79.89
[2024-04-09 10:02] VITALS: BP 122/70; PULSE 76; BMI 24.7
== END 2024-04-09 10:23 | disposition home or self-care (01) ==
LOC: HO.RHE 09:48
PROVIDERS: PCP Student in an Organized Health Care Education/Training Program; Visit Provider Student in an Organized Health Care Education/Training Program
DX: M1A.00X0 Idiopathic chronic gout, unspecified site, without tophus (tophi) (principal); M15.9 Polyosteoarthritis, unspecified; R79.89 Other specified abnormal findings of blood chemistry
CPT/HCPCS: 99214

== ENCOUNTER → 2024-04-09 09:47 | Outpatient (BNVA) | payer MEDICARE, MEDICAID, SELFPAY | PROVIDERS: PCP Student in an Organized Health Care Education/Training Program; Visit Provider Student in an Organized Health Care Education/Training Program | DX: M1A.00X0 Idiopathic chronic gout, unspecified site, without tophus (tophi) (principal); M15.9 Polyosteoarthritis, unspecified; R79.89 Other specified abnormal findings of blood chemistry | CPT/HCPCS: 99212 ==

== ENCOUNTER 2024-08-29 09:17 | Outpatient (AMB) | payer MEDICARE, MEDICAID, SELFPAY ==
[2024-08-29 09:25] VITALS: BP 110/74; BMI 24.8
--- NOTE | 2024-08-29 09:25 | A.OFFVIS_ITS ---
Vital Signs 08/29/24 09:25 Height 5 ft 3 in Weight 140 lb BMI 24.8 BP 110/74 Blood Pressure Location Lt brachial Position Sitting Intake Visit Reasons: 6m follow up Intake Note: Patient presets follow up Alzheimer's medication. Labs in chart Global Regulatory Affairs Manager Required: No Accompanied by: Self / Same As Patient Allergies No Known Allergies Allergy (Verified 08/29/24 09:28) HPI Comments Details: Chief Complaint Routine medication review and assessment for dementia and associated conditions. History of Present Illness The patient is a 69-year-old male presenting with mood disturbance related to dementia and treatment management evaluation. Patient is accompanied by 2 members of [facility] staff. Mood improvements are noted with melatonin aiding sleep and Namenda ER 7mg - such as decreasing crying episodes, enhancing daytime alertness. However, higher Namenda ER dose of 14mg caused confusion and lethargy, thus dose reduced back to 7 mg. The patient follows with rheumatology for gout. Morning stiffness improves with scheduled Tylenol. Prior labs showed elevated ESR and CRP with low albumin, and borderline B12 but normal methylmalonic acid and homocysteine levels. Review of Systems - Musculoskeletal: Reports morning stiffness. - Mental: Reports mood improvements and reduced crying episodes. Discussion Notes I reviewed with the patient the continuation of 7 mg of Nomenda due to stability achieved at this dose and previous adverse effects at higher doses. I discussed Nudexta as a future option if mood changes require further intervention. The efficacy of current treatments, including melatonin for sleep and the scheduled Tylenol for morning stiffness, were acknowledged. I emphasized monitoring lab values with the primary care physician and rheumatology follow-up of osteoarthritis and gout. Plan Continue 7 mg Namenda. Consider Nudexta for future affect issues. Maintain melatonin for sleep. Scheduled Tylenol aids arthritis stiffness. Regular gout follow-ups and lab monitoring with PCP and rheumatology for ESR, CRP, B-12 levels . Patient and caregivers were informed and verbally consented to the use of an ambient scribe for clinic note documentation during this visit. [facility] Medical History Alzheimer's dementia Hypothyroidism Prediabetes Vitamin D deficiency Gastrointestinal bleed High myopia Thalassemia minor Urinary retention Cataract of both eyes Hyperlipidemia Surgical History No pertinent past surgical history Social History Household Members: Other Housing: Assisted Living Facility Alcohol intake: never Patient Tobacco Use Status: Never used Tobacco Review of Systems Neuro Reports confusion Psych Reports confusion Physical Exam Vital Signs: Last Vital Signs BP 110/74 08/29/24 09:25 BMI result Body Mass Index 24.8 Const General: cooperative, no acute distress, alert and confusion Orientation/consciousness: confusion Resp Effort & Inspection: normal respiratory effort and able to speak in complete sentences Neuro Other: Alert. Confused. Makes simple statements- Not consistently applicable to current discussion. Sitting upright in w/c. General: confusion Psych Appearance: well kempt Attitude: cooperative Assessment & Plan Assessment & Plan (1) Alzheimer's dementia: Comment: moderate Code(s): G30.9 - Alzheimer's disease, unspecified; F02.80 - Dementia in other diseases classified elsewhere, unspecified severity, without behavioral disturbance, psychotic disturbance, mood disturbance, and anxiety Category: Medical (2) Down syndrome: Code(s): Q90.9 - Down syndrome, unspecified Category: Medical Plan Patient Instructions - Continue taking Namenda ER 7 mg daily. - Continue Donepaxil 10mg daily in am. - Continue melatonin 5mg daily at bedtime - Take scheduled Tylenol.. - Attend regular visits with both PCP and management developer. - Monitor for any changes in symptoms and report. - Labs are completed as directed by the primary care physician. Coding Level of Care Code Est Pt Level 4 (37884) Diagnoses Alzheimer's dementia G30.9; F02.80 Down syndrome Q90.9
--- OUTSIDE RECORDS SUMMARY | 2024-08-29 10:56 | XMS_ITS | Patient Health Record ---
Author Organization [facility] Address [address] [place] [address] Care Team Providers Care Solidworks Mechanical Designer Name Role Phone Cox, Gastonirais Primary Care Provider Tor Warner Unavailable [phone] Allergies Allergen (clinical drug ingredient) Drug/Non Drug Allergy documented on EMR Reaction Allergy Type Onset Date Status dairy products (uncoded) Unknown Allergy Active Reason For Referral No Information Medications Medication SIG (Take, Route, Frequency, Duration) Notes Start Date End Date Status ibuprofen Active guaiFENesin Active MiraLax Active Levothyroxine Sodium 112 MCG 1 tablet in the morning on an empty stomach Orally mon-sat Active Selenium Sulfide Act lore Mylanta Active Tussin prn Not-Taking Finasteride 5 MG 1 tablet Orally Once a day Not-Taking Docusate Sodium Acti ve Suppository Base Not -Taking Chlorhexidine Gluconate 0.12 % Mouth/Throat Active Fiber Not-Taking Flomax Active Finasteride Active Polyethylene Glycol Active Dulcolax Not-Taking Robitussin Chest Congestion Not-Taking Atorvastatin Calcium Active Potassium Citrate ER Not-Taking Acetaminophen 325 mg prn Active Lipitor Not-Taking Bisacodyl Active Bacitracin Active Zyloprim Not-Taking Colchicine 0.6 MG 1 tablet Orally PRN Active Vitamin D Active Allopurinol Active Ammonium Lactate 12 % APPLY TO AFFECTED AREA ON FEET TWICE DAILY for 30 Active Tamsulosin HCl 0.4 MG Orally once daily Not-Taking Clotrimazole 1 % 1 application Externally Twice a day for 28 day(s) 07/20/2021 Active Immunizations Vaccine Route Administration Date Status Comme nts Influenza Unknown 03/22/2019 Administered Social History Tobacco Use: Social History Observation Description Date Details (start date - stop date) Never Smoker NA - NA Alcohol Screen Question Answer Notes Did you have a drink containing alcohol in the p ast year? No Points 0 Interpretation Negative Tobacco use other than smoking: Question Answer Notes Are you an other tobacco user? No Tobacco Control (Standard) Question Answer Notes Tobacco use: Nonsmoker Additional Findings: Tobacco non-user Current no nsmoker Problems Problem Type SNOMED Code ICD Code Onset Dates Problem Status W/U Status Risk Notes Problem Atherosclerosis of [place] arteries of the extremities ([id number]) Atherosclerosis of [place] artery of both lower extremities, with unspecified presence of clinical manifestation (I70.203) Active confirmed Vital Signs Blood pressure diastolic 63 mm Hg 06/17/2024 Height 5ft 6in in 06/17/2024 Blood pressure systolic 129 mm Hg 06/17/2024 Weight 141 lbs 06/17/2024 BMI 22.76 kg/m2 06/17/2024 Procedures Procedure Date Ordered Date Performed Result Body Sit e 95830-TTQWEAM NAIL, 6 OR MORE 09/07/2023 N/A 52675-UTZF SKIN LESIONS, 2 TO 4 09/07/2023 N/A 11432-STNCWMY NAIL, 6 OR MORE 12/14/2023 N/A 86318-LINB SKIN LESIONS, 2 TO 4 12/14/2023 N/A 43713-STLHAJW NAIL, 6 OR MORE 03/07/2024 N/A 78477-PJTU SKIN LESIONS, 2 TO 4 03/07/2024 N/A 40044-YKLDKAB NAIL, 6 OR MORE 06/17/2024 N/A 43926-BFQA SKIN LESIONS, 2 TO 4 06/17/2024 N/A Encounters Encounter Location Date Provider Diagnosis [facility] [address] 09/07/2023 Tor Cruz Atherosclerosis of [place] artery of both lower extremities, with unspecified presence of clinical manifestation I70.203 ; Tinea unguium B35.1 ; Pain in right toe(s) M79.674 and Pain in left toe(s) M79.[facility] [address] 12/14/2023 Tor Cruz Atherosclerosis of [place] artery of both lower extremities, with unspecified presence of clinical manifestation I70.203 ; Tinea unguium B35.1 ; Pain in right toe(s) M79.674 and Pain in left toe(s) M79.[address] [address] 03/07/2024 Tor Cruz Atherosclerosis of [place] artery of both lower extremities, with unspecified presence of clinical manifestation I70.203 ; Tinea unguium B35.1 ; Pain in right toe(s) M79.674 and Pain in left toe(s) M79.[address] [address] 06/17/2024 Tor Cruz Atherosclerosis of [place] artery of both lower extremities, with unspecified presence of clinical manifestation I70.203 ; Tinea unguium B35.1 ; Pain in right toe(s) M79.674 and Pain in left toe(s) M79.675 Assessments Encounter Date Diagnosis (ICD Code) Assessment Notes Treatment Notes Treatment Clinical Notes Section Notes 09/07/2023 Tinea unguium (ICD-10 - B35.1) 09/07/2023 Atherosclerosis of [place] artery of both lower extremities, with unspecified presence of clinical manifestation (ICD-10 - I70.203) 12/14/2023 Tinea unguium (ICD-10 - B35.1) 12/14/2023 Atherosclerosis of [place] artery of both lower extremities, with unspecified presence of clinical manifestation (ICD-10 - I70.203) 03/07/2024 Tinea unguium (ICD-10 - B35.1) 03/07/2024 Atherosclerosis of [place] artery of both lower extremities, with unspecified presence of clinical manifestation (ICD-10 - I70.203) 06/17/2024 Tinea unguium (ICD-10 - B35.1) 06/17/2024 Atherosclerosis of [place] artery of both lower extremities, with unspecified presence of clinical manifestation (ICD-10 - I70.203) 06/17/2024 Pain in right toe(s) (ICD-10 - M79.674) 12/14/2023 Pain in right toe(s) (ICD-10 - M79.674) 03/07/2024 Pain in right toe(s) (ICD-10 - M79.674) 09/07/2023 Pain in right toe(s) (ICD-10 - M79.674) 09/07/2023 Pain in left toe(s) (ICD-10 - M79.675) 06/17/2024 Pain in left toe(s) (ICD-10 - M79.675) 03/07/2024 Pain in left toe(s) (ICD-10 - M79.675) 12/14/2023 Pain in left toe(s) (ICD-10 - M79.675) Plan Of Treatment Pending Test Test Name Order Date 48621-IQWCWEP NAIL, 6 OR MORE 02/10/2011 16123-CDVYVPW NAIL, 6 OR MORE 10/17/2011 45285-DSRLQIF NAIL, 6 OR MORE 02/20/2012 63704-RICMFKH NAIL, 6 OR MORE 04/30/2012 30074-OYUXBND NAIL, 6 OR MORE 10/17/2012 50688-RKMAEWU NAIL, 6 OR MORE 08/08/2013 47705-DKMLJEO NAIL, 6 OR MORE 12/05/2013 75315-OQTNMTC NAIL, 6 OR MORE 03/06/2014 52937-PTUQQOO NAIL, 6 OR MORE 06/11/2014 75953-UZNYBBG NAIL, 6 OR MORE 09/03/2014 31029-ZSMSWRX NAIL, 6 OR MORE 03/04/2015 87406-TCJRNJA NAIL, 6 OR MORE 11/25/2015 36778-DMOUIVA NAIL, 6 OR MORE 02/25/2016 36784-UIGAHAM NAIL, 6 OR MORE 06/29/2016 14588-JJUVUET NAIL, 6 OR MORE 09/28/2016 20025-PQTJRID NAIL, 6 OR MORE 03/29/2017 77617-LRAZAVH NAIL, 6 OR MORE 06/28/2017 78289-UZDQMRT NAIL, 6 OR MORE 10/04/2017 00269-MPWXRKU NAIL, 6 OR MORE 08/01/2018 12683-LLVJNYJ NAIL, 6 OR MORE 10/24/2018 89832-GRTDPVT NAIL, 6 OR MORE 01/17/2019 52023-JPJDBHT NAIL, 6 OR MORE 04/18/2019 06537-HFHXQNK NAIL, 6 OR MORE 08/05/2019 54469-AJFGPKA NAIL, 6 OR MORE 03/05/2020 93116-DKLEYTF NAIL, 6 OR MORE 08/20/2020 07525-WDHZJVN NAIL, 6 OR MORE 11/19/2020 85746-CVYDFOV NAIL, 6 OR MORE 02/25/2021 12040-IASABLE NAIL, 6 OR MORE 05/06/2021 27936-KZNDKWF NAIL, 6 OR MORE 07/29/2021 28096-SIRPMFK NAIL, 6 OR MORE 10/07/2021 94480-XDIQBMU NAIL, 6 OR MORE 12/15/2021 37800-HSWSTPM NAIL, 6 OR MORE 02/23/2022 19280-PZRBSZK NAIL, 6 OR MORE 05/11/2022 23876-EGBDBLH NAIL, 6 OR MORE 08/17/2022 04787-AKETBPU NAIL, 6 OR MORE 11/30/2022 37596-AQCZPBJ NAIL, 6 OR MORE 01/12/2023 15978-LDMOPSM NAIL, 6 OR MORE 03/27/2023 76172-BQVLTBE NAIL, 6 OR MORE 06/08/2023 77811-XMWPVPS NAIL, 6 OR MORE 09/07/2023 38245-YDOSJDA NAIL, 6 OR MORE 12/14/2023 04159-TJIYSYC NAIL, 6 OR MORE 03/07/2024 92039-ERQKVLH NAIL, 6 OR MORE 06/17/2024 00436-SOIXVEX NAIL, 6 OR MORE 09/02/2015 75523-SBDNNSD NAIL, 6 OR MORE 06/10/2015 38566-ECOIJHG NAIL, 6 OR MORE 12/10/2014 61426-GNTVJRB NAIL, 6 OR MORE 02/07/2013 82301-DNSKMQJ NAIL, 6 OR MORE 08/01/2012 87837-USWIRUY NAIL, 6 OR MORE 05/12/2011 39611-ZXXSLTU NAIL, 6 OR MORE 02/21/2018 44417-WSXGQYF NAIL, 6 OR MORE 12/28/2016 91979-ZHSYUMZ NAIL, 6 OR MORE 05/09/2013 46061-Krer Destruction, 1-14 05/09/2013 26189-Rpyf Destruction, -14 12/28/2016 73781-Xzkz Destruction, 1-14 02/21/2018 80436-Qzje Destruction, 1-14 08/01/2012 40927-Uduz Destruction, -14 05/12/2011 54092-Lpgk Destruction, 06-1802/07/2013 70906-Dikc Destruction, 06-1812/10/2014 08804-Slel Destruction, 06-1806/10/2015 42892-Flmo Destruction, 06-1809/02/2015 97364-Ftsb Destruction, 06-1811/30/2022 21359-Vuly Destruction, 06-1802/10/2011 11118-Dacq Destruction, 06-1810/12/2022 31995-Zwbm Destruction, 06-1808/17/2022 19911-Wizy Destruction, 06-1805/11/2022 42898-Jbgw Destruction, 06-1806/29/2022 66619-Shke Destruction, 06-1802/23/2022 46105-Cxwx Destruction, 06-1812/15/2021 66497-Gorp Destruction, 06-1810/07/2021 26220-Ouqi Destruction, 06-1807/29/2021 92930-Ylrk Destruction, 06-1805/06/2021 44394-Sdhj Destruction, 06-1802/25/2021 67423-Azql Destruction, 06-1811/19/2020 02186-Yzub Destruction, 06-1808/20/2020 96173-Nfmg Destruction, 06-1803/05/2020 82299-Cxtl Destruction, 06-1808/05/2019 32542-Bobf Destruction, 06-1804/18/2019 17087-Vwrz Destruction, 06-1801/17/2019 55710-Ovsg Destruction, 06-1810/24/2018 34690-Jeck Destruction, 06-1808/01/2018 44448-Tlmd Destruction, 06-1810/04/2017 58833-Yfin Destruction, 06-1806/28/2017 56122-Nuvn Destruction, 06-1809/28/2016 57335-Idun Destruction, 06-1803/29/2017 23869-Jxkt Destruction, 06-1806/29/2016 43543-Pvyo Destruction, 06-1802/25/2016 81164-Lopf Destruction, 06-1811/25/2015 54111-Qrrw Destruction, 06-1803/04/2015 76763-Vuxg Destruction, 1-14 09/03/2014 62198-Lhpi Destruction, -14 06/11/2014 94985-Ojrb Destruction, -14 03/06/2014 44765-Oopz Destruction, -12/05/2013 90350-Ucja Destruction, -14 08/08/2013 30736-Jbxy Destruction, -14 10/17/2012 80604-Ydju Destruction, -14 04/30/2012 29056-Vfsq Destruction, -02/20/2012 77939-Bkee Destruction, -14 10/17/2011 01039-HHSG SKIN LESIONS, 2 TO 4 08/18/19 23 03399-ILWM SKIN LESIONS, 2 TO 4 12/01/19 23 48318-HMRU SKIN LESIONS, 2 TO 4 03/27/20 23 14204-HRUE SKIN LESIONS, 2 TO 4 01/13/20 23 27405-ZJUU SKIN LESIONS, 2 TO 4 03/07/20 24 11589-WXAX SKIN LESIONS, 2 TO 4 12/14/19 24 91037-NYQP SKIN LESIONS, 2 TO 4 09/07/19 24 66254-PYKJ SKIN LESIONS, 2 TO 4 06/08/19 24 82802-IMNB SKIN LESIONS, 2 TO 4 06/17/19 Next Appt Details Provider Name:Tor Cruz , 09/23/2024 09:00:00 AM, [address] [facility], [facility] [address], [place], [address], Insurance Providers Payer Name Payer Address Payer Phone Subscriber Number Group Number Insured Name Patient Relationship to Insured Coverage Start Date Coverage End Date Medicare National Govt [facility] [address] [place] [address] [id number] Mary Lou Patino Self - patient is the insured 7 Medical (General) History Medical History History ICD Code Down's syndrome thalassemia minor hyperthyroidism thyroid disorder Lactose intolerance Alzheimers disease Surgical History Surgery Date(Month/Year) Hospitalization History Reason Date(Month/Year) Wing- fell 12/2022 Urgent care /[facility] in [facility] 11/2018 Urgent Care [facility] for neck p ain 05/19 Patient went to [facility] for a neck spra in. 02/2015
--- OUTSIDE RECORDS SUMMARY | 2024-08-29 10:56 | XMS_ITS | Encounter Summary ---
Author Organization [facility] Address [address] [place] [address] Care Team Providers Care Professor Of Family Medicine Name Role Phone Zane Cox MD Primary Care Provider [phone] Reason for Visit * Reason Onset Date Comments Kenny: Physician Order 07/31/2024 Encounter Details Date Type Department Care Team ([facility] st Contact Info) Description 07/31/2024 Telephone Internal Medicine - [place] [facility] [address] [place] [address] Zane Cox MD [address] [place] [id number] Kenny: Physician Order Social History Tobacco Use Types Packs/Day Years Used Date Smoking Tobacco: Never Smokeless Tobacco: Never Alcohol Use Standard Drinks/Week Comments No 0 (1 standard drink = 0.6 oz pur e alcohol) Sex and Gender Information Value Date Recorded Sex Assigned at Not on file Legal Sex Male 11:48 PM EST Gender Identity Not on file Sexual Orientation Not on file documented as of this encounter Progress Notes * Isabella Castellon - 07/31/2024 12:14 PM EST Provider signed and Ms. Preciado contacted that documents are ready for pickup. * Isabella Castellon - 07/31/2024 11:49 AM EST Isaura Preciado (Film Reproducer) dropped off Physician Order at front end technician. Handed to Dr. Cox Mind Reader. PRESSURE WELDER: [phone] documented in this encounter Plan of Treatment Not on file documented as of this encounter Visit Diagnoses Not on filedocumented in this encounter Care Teams Professor Of Family Medicine Relationship Specialty Start Date End Date Zane Cox MD [address] [place] [address] PCP - General 05/09/22 documented as of this encounter
--- OUTSIDE RECORDS SUMMARY | 2024-08-29 10:56 | XMS_ITS ---
Author Organization [facility] Address [address] [place] [address] Care Team Providers Care Dope Weigh Operator Name Role Phone Kenny Gastonirais Primary Care Provider Tor Warner Unavailable [phone] Allergies Allergen (clinical drug ingredient) Drug/Non Drug Allergy documented on EMR Reaction Allergy Type Onset Date Status dairy products (uncoded) Unknown Allergy Active REASON FOR VISIT At Risk Footcare, Painful Nail(s) aggrevated by shoes and causing difficulty standing/walking. Medications Medication SIG (Take, Route, Frequency, Duration) Notes Start Date End Date Status Docusate Sodium Acti ve Finasteride Active Colchicine 0.6 MG 1 tablet Orally PRN Active Chlorhexidine Gluconate 0.12 % Mouth/Throat Active Bisacodyl Active Suppository Base Not -Taking Fiber Not-Taking Atorvastatin Calcium Active Bacitracin Active Acetaminophen 325 mg prn Active Tussin prn Not-Taking Zyloprim Not-Taking Finasteride 5 MG 1 tablet Orally Once a day Not-Taking Potassium Citrate ER Not-Taking Lipitor Not-Taking Allopurinol Active Clotrimazole 1 % 1 application Externally Twice a day for 28 day(s) 07/20/2021 Active Dulcolax Not-Taking Tamsulosin HCl 0.4 MG Orally once daily Not-Taking Robitussin Chest Congestion Not-Taking Vitamin D Active Ammonium Lactate 12 % APPLY TO AFFECTED AREA ON FEET TWICE DAILY for 30 Active Mylanta Active Selenium Sulfide Act lore MiraLax Active ibuprofen Active Levothyroxine Sodium 112 MCG 1 tablet in the morning on an empty stomach Orally mon-sat Active Flomax Active guaiFENesin Active Social History Tobacco Use: Social History Observation Description Date Details (start date - stop date) Never Smoker NA - NA Tobacco Use/Smoking Question Answer Notes Are you a: nonsmoker Additional Findings: Tobacco Non-User Current no n-smoker Alcohol Screen Question Answer Notes Did you have a drink containing alcohol in the p ast year? No Points 0 Interpretation Negative Tobacco use other than smoking: Question Answer Notes Are you an other tobacco user? No Vital Signs Height 5ft 6in in 03/07/2024 Weight 140 lbs 03/07/2024 BMI 22.59 kg/m2 03/07/2024 Procedures Procedure Date Ordered Date Performed Result Body Sit e 81791-RAZVCBF NAIL, 6 OR MORE 03/07/2024 N/A 45732-OMLZ SKIN LESIONS, 2 TO 4 03/07/2024 N/A Encounters Encounter Location Date Provider Diagnosis [facility] [place] [address] [place] [address] [place] [id number] 03/07/2024 Tor Cruz Atherosclerosis of pilot station artery of both lower extremities, with unspecified presence of clinical manifestation I70.203 ; Tinea unguium B35.1 ; Pain in right toe(s) M79.674 and Pain in left toe(s) M79.675 Assessments Encounter Date Diagnosis (ICD Code) Assessment Notes Treatment Notes Treatment Clinical Notes Section Notes 03/07/2024 Atherosclerosis of pilot station artery of both lower extremities, with unspecified presence of clinical manifestation (ICD-10 - I70.203) 03/07/2024 Tinea unguium (ICD-10 - B35.1) 03/07/2024 Pain in right toe(s) (ICD-10 - M79.674) 03/07/2024 Pain in left toe(s) (ICD-10 - M79.675) Plan Of Treatment Pending Test Test Name Order Date [id number] NAIL, 6 OR MORE 03/07/2024 [id number] SKIN LESIONS, 2 TO 4 03/07/20 24 Next Appt Details Follow Up: 3 Months, Reason: Provider Name:Tor Cruz , 09/23/2024 09:00:00 AM, [address] [facility], [address], [place], [address], Procedure Notes * Category Sub-Category Detail Notes Debride Nail 6-10 Nail debridement Performance o f this nail treatment by a nonprofessional would put this patients foot and overall health at risk. Therefore, nail debridement was performed extensively to reduce/remove overall nail length, girth, thickness, subungual debris, and necrotic tissue, by manual and/or electrical means through the use of a nail nipper and/or dremel-type cylinder grinder, to a more viable healthy nail plate or bed tissue 6-10. Silver nitrate used for any petechial bleeding as necessary. Definitive antifungal treatment options have been reviewed and discussed with the patient. The patient chooses, no pharmaceutical tx - 38727 Keratoma Treatment Parring or Cutting o f Benign Hyperkeratotic Lesion(s) (-56) 2-4 Lesions - The Benign hyperkeratotic lesions, as described above were pared, and/or cut utilizing a sterile 15 blade, tissue nippers, and/or dremel - 33499 , Q8 Progress Notes * Mary Lou FINLEY EDOB: (68 yo M)Acc No.[id number]:03/07/2024 Progress Note Patient:?Cesar Finley E Provider:?Tor Cruz DPM :1955???Age:68 Y???Sex:Male Odin e:03/07/2024 Address:[address] [place], [place] [id number] Pcp:Azul Cox Subjective: * Chief Complaints: * ???At Risk FootcarePainful N ail(s) aggrevated by shoes and causing difficulty standing/walking. * HPI: ???At Risk footcare:?Pt States Last PCP Visit:?Date?02/19/2024 * ROS:?General/Constitutional:?Nausea?denies.?Vomiting?denies.?Hunger Thirst?denies.?Loss appetite?denies.?Chills?denies.?Fatigue?denies.?Fever?denies.?Night Sweats?denies.?Unexplained weight loss?denies.?Ophthalmologic:?Blurred vision?denies.?Red eye?denies.?HEENTM:?Dentures?denies.?Dizziness?denies.?Glasses/contacts?admits.?Retinopathy?de nies.?Blurred/double vision?denies.?TMJ?denies.?Discharge/drainage?denies.?Implants?denies.?Hard of hearing denies.?Difficulty chewing/swallowing/speaking?denies.?Nose bleeds?denies.?Sore mouth?denies.?Swollen glands?denies.?Respiratory:?On Oxygen?denies.?Pneumonia/pleurisy?denies.?Bronchitis?denies.?Emphysema?denies.?C oughing?denies.?Cough blood?denies.?Shortness of breath?denies.?Wheezing?denies.?Cardiovascular:?Pacemaker?denies.?MVP?denies.?WPW?denies.?CHF?denies.?Heart attack?denies.?Septal defect?denies.?Rapid beat?denies.?Chest pain ?denies.?Atrial Fib.?denies.?Murmur/Palpitations?denies.?Gastrointestinal:?Hemorrhoids?denies.?Stomach/Abdominal pain?denies.?Dark blood stool?denies.?Irritable bowel ?denies.?Constipation?denies.?Diarrhea?denies.?Vomiting?denies.?Hematology:?Swelling?denies.?Bruising?denies.?Bleeding problem?denies.?Genitourinary:?Blood urine?denies.?Frequent/Painfu/urination/bladder control?denies.?Kidney stones?denies.?Infection (UTI)?denies.?Nephropathy?denies.?Musculoskeletal:?Hammertoes?denies.?Bunions?admits.?Scoliosis/kyphosis?denies.?Muscle cramps / walking?denies.?Generalized aches and pains?denies.?Weakness?denies.?Integ.:?Norman?denies.?Scars?denies.?Corns/calluses?admits.?Ingrown nails?admits.?Painful nails?admits.?Rashes?denies.?Neurologic:?Difficulty sleeping?denies.?Bipolar?denies.?Brain disorder?denies.?Balance trouble?admits.?Confusion?denies.?Fainting/blackouts?denies.?Headache?denies.?Tr emors?denies.? * Medical History:? * Surgical History:?Denies Pas t Surgical History * Hospitalization/Major Diagno stic Procedure:?Patient went to [facility] for a neck sprain. [facility] [address] [place] [address] for neck pain 05/[facility] 11/[facility] * Family History:?Mother: dece ased, diagnosed with Unspecified heart disease.?Father: alive, diagnosed with Diabetic - NIDDM, Unspecified essential hypertension.?Friend(s): diagnosed with Unspecified heart disease.? No children. * Social History:?Tobacco Use:?Tobacco Use/Smoking?Are you a:?nonsmoker ?Additional Findings: Tobacco Non-User?Current non-smoker ?Tobacco use other than smoking?Are you an other tobacco user??No ???Drugs/Alcohol:?Drugs?Have you used drugs other than those for medical reasons in the past 12 months??No ?Alcohol Screen?Did you have a drink containing alcohol in the past year??No ?Points?0 ?Interpretation?Negative ???Miscellaneous:?Caffeine: yes, frequency:, 1-2 cups per day. ?no Children, none. ?Exercise: yes, bowling. ?Marital status: single. ?Occupation: unemployed. * Medications:?TakingAcetamino phen 325 mg prnAtorvastatin Calcium Bacitracin Bisacodyl Colchicine 0.6 MG Tablet 1 tablet Orally PRNChlorhexidine Gluconate 0.12 % Solution Mouth/Throat Docusate Sodium Finasteride Flomax guaiFENesin ibuprofen Levothyroxine Sodium 112 MCG Tablet 1 tablet in the morning on an empty stomach Orally mon-satMiraLax Mylanta Selenium Sulfide Vitamin D Ammonium Lactate 12 % Cream APPLY TO AFFECTED AREA ON FEET TWICE DAILY Allopurinol Clotrimazole 1 % Cream 1 application Externally Twice a dayTaking Acetaminophen 325 mg prnTaking Atorvastatin Calcium Taking Bacitracin Taking Bisacodyl Taking Colchicine 0.6 MG Tablet 1 tablet Orally PRNTaking Chlorhexidine Gluconate 0.12 % Solution Mouth/Throat Taking Docusate Sodium Taking Finasteride Taking Flomax Taking guaiFENesin Taking ibuprofen Taking Levothyroxine Sodium 112 MCG Tablet 1 tablet in the morning on an empty stomach Orally mon-satTaking MiraLax Taking Mylanta Taking Selenium Sulfide Taking Vitamin D Taking Ammonium Lactate 12 % Cream APPLY TO AFFECTED AREA ON FEET TWICE DAILY Taking Allopurinol Taking Clotrimazole 1 % Cream 1 application Externally Twice a dayNot-Taking/PRNTamsulosin HCl 0.4 MG Capsule Orally once dailyRobitussin Chest Congestion Dulcolax Lipitor Potassium Citrate ER Zyloprim Finasteride 5 MG Tablet 1 tablet Orally Once a dayTussin prnFiber Suppository Base Medication List reviewed and reconciled with the patientNot-Taking/PRN Tamsulosin HCl 0.4 MG Capsule Orally once dailyNot-Taking/PRN Robitussin Chest Congestion Not-Taking/PRN Dulcolax Not-Taking/PRN Lipitor Not-Taking/PRN Potassium Citrate ER Not-Taking/PRN Zyloprim Not-Taking/PRN Finasteride 5 MG Tablet 1 tablet Orally Once a dayNot-Taking/PRN Tussin prnNot-Taking/PRN Fiber Not-Taking/PRN Suppository Base Medication List reviewed and reconciled with the patient * Allergies:?dairy productsyes [Allergies Verified] Objective: * Vitals:?Ht:5ft 6in, Wt:140, BMI:22.59, Shoe size:7.5, Ht-cm: 167.64 cm, Wt-k.5 kg. * Examination: ???Vascular: ?DP PULSES(B):? 0/4, B/L.?PT PULSES(B):? 0/4, B/L.?CAPILLARY FILL TIME:? delayed, all digits, B/L.?TROPHIC CONDITION-TEXTURE/ELASTICITY/TURGOR/HAIR GROWTH(B):? decreased, with sparse to absent hair growth, B/L.?TEMPERTURE GRADIENT(C):? decreased, cool to cool, proximal to distal, B/L.?PIGMENTATION:? mottled, B/L.?EDEMA(C):? 2/4, non-pitting, without aching pain, B/L, Ankle(s).?CLAUDICATION(C):?denies, B/L.?REST PAIN:?denies, B/L.?Nails: ?NAILS are:?Elongated, overgrown, dystrophic, lytic, greater than 3mm thick, discolored and friable with crumbly malodorous subungual debris, with pain on palpation, 1-5 B/L.?Dermatologic: ?SKIN FINDINGS:? Skin exam reveals Keratotic lesion(s) located at, SUB MTH (s), 1,B/L, SUB MTH (s), 4 , B/L.? Assessment: * Assessment: 1.?Tinea unguium - B35.1?2.? Atherosclerosis of pilot station artery of both lower extremities, with unspecified presence of clinical manifestation - I70.203?3.?Pain in right toe(s) - M79.674?4.?Pain in left toe(s) - M79.675? Plan: * Treatment: 2.?Atherosclerosis of pilot station artery of both lower extremities, with unspecified presence of clinical manifestation?Procedure: [id number] SKIN LESIONS, 2 TO 4 * Procedures:?Debride Nail 6-10:?Nail debridement?Performance of this nail treatment by a nonprofessional would put this patients foot and overall health at risk. Therefore, nail debridement was performed extensively to reduce/remove overall nail length, girth, thickness, subungual debris, and necrotic tissue, by manual and/or electrical means through the use of a nail nipper and/or dremel-type cylinder grinder, to a more viable healthy nail plate or bed tissue 6-10. Silver nitrate used for any petechial bleeding as necessary. Definitive antifungal treatment options have been reviewed and discussed with the patient. The patient chooses, no pharmaceutical tx - 68182.?Keratoma Treatment:?Parring or Cutting of Benign Hyperkeratotic Lesion(s)?(-56) 2-4 Lesions - The Benign hyperkeratotic lesions, as described above were pared, and/or cut utilizing a sterile 15 blade, tissue nippers, and/or dremel - 51680 , Q8.? * Procedure Codes:?61958 DEBRI DE NAIL, 6 OR MORE, Modifiers: XS 29307 TRIM SKIN LESIONS, 2 TO 4, Modifiers: XS , Q8 * Follow Up:?3 Months * Images: * Sign off status: Completed true * Provider:?Tor Cruz DPM Date:?2023 Generated for Hebert hawthorne/Lisa/Eleazar on:?08/29/2024 10:56 AM EDT History and Physical Notes * HPI (History of Present Illness) Category Sub-Category Detail Notes Category Not es At Risk footcare Pt States Last PCP Visit: Date: 4 Examination Category Sub-Category Detail Notes Category Not es Dermatologic SKIN FINDINGS: Skin exam reveal s Keratotic lesion(s) located at, SUB MTH (s), 1,B/L, SUB MTH (s), 4 , B/L Vascular DP PULSES (B): 0/4, B/L PT PULSES (B): 0/4, B/L CAPILLARY FILL TIME: delayed, all digits , B/L TEMPERTURE GRADIENT (C): decreased, cool to cool, proximal to distal, B/L TROPHIC CONDITION-TEXTURE/ELASTICITY/TURGOR/HAIR GROWTH (B): decreased, with sparse to absent hair gr owth, B/L EDEMA (C): 2/4, non-pitting, wi thout aching pain, B/L, Ankle(s) CLAUDICATION (C): denies, B/L REST PAIN: denies, B/L PIGMENTATION: mottled, B/L Nails NAILS are: Elongated, overg rown, dystrophic, lytic, greater than 3mm thick, discolored and friable with crumbly malodorous subungual debris, with pain on palpation, 1-5 B/L
--- OUTSIDE RECORDS SUMMARY | 2024-08-29 10:57 | XMS_ITS | Encounter Summary ---
Author Organization [facility] Address [address] [place] [address] Care Team Providers Care Trauma Coordinator Name Role Phone Zane Cox MD Primary Care Provider [phone] Reason for Visit * Reason Comments Follow-up Encounter Details Date Type Department Care Team (Latest Contact Info) Description 08/15/2024 9:00 AM EDT Office Visit Internal Medicine - [address] [phone] Zane Cox MD [address] [place] [id number] Cognitive impairment (Primary Dx); Down syndrome; Bilateral degenerative progressive high myopia; Gout, unspecified cause, unspecified chronicity, unspecified site; Mixed hyperlipidemia Social History Tobacco Use Types Packs/Day Years Used Date Smoking Tobacco: Never Smokeless Tobacco: Never Alcohol Use Standard Drinks/Week Comments No 0 (1 standard drink = 0.6 oz pur e alcohol) Housing Instability Answer Date Recorde d Are you worried that in the next 2 months you may not have stable housing? No 08/14/2024 Food Access & Nutrition Answer Date Rec orded Do you have access to a vari ety of food including fruits and vegetables? Yes 08/14/2024 Access to Healthcare Answer Date Record ed Within the last 3 months, ho w many times did you visit the emergency department for your medical care? 0 08/14/2024 Health Literacy Answer Date Recorded How often do you need to hav e someone help you when you read instructions, pamphlets, or other written material from your doctor or pharmacy? Always 08/14/2024 Caregiver: How often do you need to have someone help you when you read instructions, pamphlets, or other written material from your doctor or pharmacy? Not on file 08/14/2024 Financial Risk Answer Date Recorded How hard is it for you to pa y for the very basics like food, housing, medical care, and air conditioning / heating? Not very hard 08/14/2024 Transportation Answer Date Recorded Has the lack of transportati on kept you from meetings, work, or from getting things needed for daily living? No Has the lack of transportati on kept you from medical appointments or from getting medications? No 08/14/2024 Social Isolation Answer Date Recorded How often do you feel lonely or isolated from th ose around you? Never 08/14/2024 Food Risk Answer Date Recorded Within the past 12 months we worried whether our food would run out before we got money to buy more. Never true 08/14/2024 Within the past 12 months th e food we bought just didn't last and we didn't have money to get more. Never true 08/14/2024 Dependent Care Answer Date Recorded Do you need help finding or paying for care for your loved ones. For example, early childhood coordinator or elderly care for an older adult? No 08/14/2024 Education Answer Date Recorded Do you think completing more education or training, like finishing a GED, going to college, or learning a trade, would be helpful for you? N/A 08/14/2024 Employment and Income Answer Date Recor ded During the last four weeks, have you been actively looking for work? No 08/14/2024 Living Situation Answer Date Recorded What is your living situation? 0 08/14/2024 Sex and Gender Information Value Date Recorded Sex Assigned at Not on file Legal Sex Male 11:48 PM EST Gender Identity Not on file Sexual Orientation Not on file documented as of this encounter Last Filed Vital Signs Vital Sign Reading Time Taken Comments Blood Pressure 118/72 08/15/2024 9:21 AM EDT Pulse 77 08/15/2024 9:21 AM EDT Temperature - - Respiratory Rate - - Oxygen Saturation 98% 08/15/2024 9:21 AM EDT Inhaled Oxygen Concentration - - Weight 63.5 kg (140 lb) 08/15/2024 9:21 AM EDT Height - - Body Mass Index 24.8 03/12/2024 9:59 AM EDT documented in this encounter Progress Notes * Zane Cox MD - 08/15/2024 9:00 AM EDT CHIEF COMPLAINT: Follow-up IDENTIFIER: Mary Lou Cochran is a 69 y.o. old male. History of Present Illness The patient is a 69-year-old male here for a follow-up visit. Gout - Continues allopurinol Medication Usage - Not using Flexeril - Memantine dosage reduced from 14 mg to 7 mg due to intolerance. Hyperlipidemia: Stable with Lipitor 10 mg daily. Constipation: Patient can take docusate as needed for constipation. Hypothyroidism: Continue levothyroxine 150 mcg daily Supplemental information: He has no current complaints or need for medication refills. Doing well with few episodes. MEDICATIONS Current: Allopurinol, memantine. Discontinued: Flexeril. ROS: as per HPI GENERAL: No malaise, significant weight loss or fever HEENT: No changes in hearing or vision, nose bleeds or other nasal problems NECK: No lumps, goiter, pain or significant neck swelling RESPIRATORY: No cough, wheezing or shortness of breath CARDIOVASCULAR: No chest pain, leg swelling or palpitations BREAST: No lumps, discharge, pain or change in skin GI: No abdominal discomfort, blood in stools or black stools : No dysuria, frequency or incontinence CIAIO COUNTER MOLDER: No abnormal vaginal bleeding or abnormal vaginal discharge. MUSCULOSKELETAL: No joint pain or swelling, back pain, or muscle pain. SKIN: No lesions, rash or itching PSYCH: No sleep disturbance, mood disorder or recent psychosocial stressors. HEMATOLOGY/LYMPHOLOGY No prolonged bleeding, easy bruisability or swollen nodes ENDOCRINE: No cold or heat intolerance, polyuria, polydipsia or goiter. NEURO: No persistent headache, syncope, seizures, weakness or numbness The remainder of the review of systems is noncontributory PAST MEDICAL HISTORY: Patient Active Problem List Diagnosis Date Noted Moderate early onset Alzheimer's dementia ([facility]) 08/18/2023 Vitamin D deficiency 12/13/2022 Gout 08/10/2022 Prediabetes 09/01/2021 COVID-19 virus infection 06/25/2021 Benign prostatic hyperplasia 11/13/2020 Cognitive impairment 11/13/2020 Closed fracture of odontoid process of axis ([facility]) 11/27/2018 Hyperlipidemia 08/18/2016 Cataract 12/22/2014 Urinary retention 01/29/2014 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 AG, SCREEN; COMMENT: 0.7 OTHER SURGICAL HISTORY 2005 PROCEDURE: COLOREC CANC SCRN,FECAL OCCULT BLOOD; COMMENT: neg x 3 SOCIAL HISTORY: Social History Tobacco Use Smoking status: Never Smokeless tobacco: Never Substance Use Topics Alcohol use: No FAMILY HISTORY: Family History Problem Relation Name Age of Onset Heart attack Mother Diabetes Father Blindness Neg Hx Cataract, glaucoma, macular degeneration, strabismus Family Status Relation Name Status Mother Father Neg Hx (Not Specified) No partnership data on file MEDICATIONS DISCONTINUED/REORDERED: Medications Discontinued During This Encounter Medication Reason memantine (NAMENDA XR) 14 mg extended release capsule Prescriber Discontinued ACTIVE MEDICATIONS: Outpatient Medications Marked as Taking for the 08/15/24 encounter (Office Visit) with Zane Cox MD Medication Sig Dispense Refill atorvastatin (LIPITOR) 10 mg tablet Take 1 tablet (10 mg total) by mouth at bedtime. 90 each 1 levothyroxine (SYNTHROID, LEVOTHROID) 150 mcg tablet Take 1 Tablet by mouth daily for 360 days. ALLERGIES: Allergies Allergen Reactions Lactose GI intolerance PHYSICAL EXAM: Visit Vitals BP 118/72 (BP Location: Left arm, Patient Position: Sitting, BP Cuff Size: Large adult) Pulse 77 Wt 63.5 kg (140 lb) SpO2 98% BMI 24.80 kg/m?? Smoking Status Never BSA 1.66 m?? Physical Exam Physical Exam General Appearance: well appearing and not in acute distress HEENT: Normocephalic. External ears normal. Nose normal. Mucous membranes are moist. Oropharynx is clear. Eyes: Conjunctivae normal. Respiratory: Pulmonary effort is normal. Normal breath sounds. Cardiovascular: Normal rate and regular rhythm. Normal pulses. Normal heart sounds. Gastrointestinal: Abdomen is soft. Back, Musculoskeletal: Normal range of motion. Normal cervical range of motion and neck supple. Skin: Warm and dry, no rash. Neurological: Alert. LABS/IMAGING: Lab on 05/28/2024 Component Date Value Ref Range Status Helicobacter Pylori Ag 05/28/2024 Not detected Not detected Final Appointment on 05/27/2024 Component Date Value Ref Range Status Sodium 05/27/2024 139 133 - 145 mmol/L Final Potassium 05/27/2024 4.6 3.5 - 5.5 mmol/L Final Chloride 05/27/2024 102 96 - 110 mmol/L Final CO2 05/27/2024 31 21 - 32 mmol/L Final Anion Gap 05/27/2024 6 3 - 11 Final Glucose 05/27/2024 84 70 - 100 mg/dL Final BUN 05/27/2024 23 5 - 25 mg/dL Final Creatinine 05/27/2024 1.17 0.70 - 1.30 mg/dL Final eGFR 05/27/2024 69 >=60 mL/min/1.73m2 Final BUN/Creatinine Ratio 05/27/2024 19.7 Final Calcium 05/27/2024 9.4 8.5 - 10.5 mg/dL Final AST (SGOT) 05/27/2024 25 10 - 42 unit/L Final ALT (SGPT) 05/27/2024 49 10 - 60 unit/L Final Alkaline Phosphatase 05/27/2024 93 42 - 121 unit/L Final Total Protein 05/27/2024 7.4 6.0 - 8.0 g/dL Final Albumin 05/27/2024 3.2 3.2 - 5.0 g/dL Final Total Bilirubin 05/27/2024 0.4 0.0 - 1.4 mg/dL Final TSH 05/27/2024 4.80 (H) 0.40 - 4.00 mcIU/mL Final WBC 05/27/2024 11.7 (H) 4.8 - 10.8 K/mcL Final RBC 05/27/2024 5.70 (H) 4.50 - 5.50 M/mcL Final Hemoglobin 05/27/2024 12.9 (L) 13.5 - 17.5 g/dL Final Hematocrit 05/27/2024 41.1 (L) 42.0 - 54.0 % Final MCV 05/27/2024 72.5 (L) 79.0 - 98.0 FL Final MCH 05/27/2024 22.8 (L) 27.0 - 32.0 pcg Final MCHC 05/27/2024 31.4 (L) 32.0 - 37.0 g/dL Final RDW 05/27/2024 18.8 (H) 11.0 - 15.0 % Final Platelets 05/27/2024 306 130 - 400 K/mcL Final MPV 05/27/2024 10.9 7.0 - 11.0 FL Final NRBC 05/27/2024 0.0 <1.0 % Final NRBC Absolute 05/27/2024 0.00 <0.10 K/mcL Final Neutrophils Relative 05/27/2024 70.5 % Final Lymphocytes Relative 05/27/2024 17.0 % Final Monocytes Relative 05/27/2024 9.0 % Final Eosinophils Relative 05/27/2024 1.0 % Final Basophils Relative 05/27/2024 1.6 % Final Immature Granulocytes Relative 05/27/2024 0.9 % Final Neutrophils Absolute 05/27/2024 8.25 (H) 1.50 - 7.00 K/mcL Final Lymphocytes Absolute 05/27/2024 1.99 1.00 - 5.00 K/mcL Final Monocytes Absolute 05/27/2024 1.05 (H) 0.20 - 1.00 K/mcL Final Eosinophils Absolute 05/27/2024 0.12 0.00 - 0.50 K/mcL Final Basophils Absolute 05/27/2024 0.19 0.00 - 0.20 K/mcL Final Immature Granulocytes Absolute 05/27/2024 0.11 (H) 0.00 - 0.03 K/mcL Final Free T4 05/27/2024 1.09 0.70 - 1.80 ng/dL Final T3, Free 05/27/2024 317 230 - 420 pcg/dL Final Abstract on 05/16/2024 Component Date Value Ref Range Status HM Colorectal Cancer Screening: St* 07/01/2022 No Interpretation, Abstracted Final Hepatitis C Screening 12/13/2022 Abstracted Final Medicare Annual Wellness Visit 02/19/2024 Abstracted Final Depression Screening 02/19/2024 Abstracted Final Falls Risk Assessment 02/19/2024 Abstracted Final Annual BMP Blood Test 02/19/2024 Abstracted Final LDL/HDL Ratio 02/19/2024 3 0 - 4 Final Triglycerides 02/19/2024 99 0 - 150 mg/dL Final Cholesterol 02/19/2024 130 0 - 200 mg/dL Final HDL 02/19/2024 46 >=40 mg/dL Final LDL Cholesterol 02/19/2024 65 0 - 100 mg/dL Final Hemoglobin A1C 02/19/2024 5.4 <=6.5 % Final Results IMPRESSION: 1. Cognitive impairment 2. Down syndrome 3. Bilateral degenerative progressive high myopia 4. Gout, unspecified cause, unspecified chronicity, unspecified site 5. Mixed hyperlipidemia PLAN: Cognitive impairment (Primary) Down syndrome Bilateral degenerative progressive high myopia Gout, unspecified cause, unspecified chronicity, unspecified site Mixed hyperlipidemia Assessment & Plan 1. Medication management: Stable. - Continue allopurinol for gout. - Use Flexeril as needed. - Discontinue memantine due to intolerance at 14 mg; continue at 7 mg. - No other medication changes. Follow-up - Annual wellness visit in 6 months or sooner as needed I have obtained verbal consent from Mary Lou Cochran prior to the recording. I have advised Mary Lou Cochran that he may refuse the recording and require the recording to be turned off at any time during this encounter. Advised the patient to call me if any problems. Patient understands the plan. Patient is in agreement with the plan. Zane Cox MD on 08/15/2024 at 10:35 AM EDT documented in this encounter Plan of Treatment Not on file documented as of this encounter Visit Diagnoses Diagnosis Cognitive impairment- Primary Unspecified persistent mental disorders due to conditions classified elsewhere Down syndrome Down's syndrome Bilateral degenerative progressive high myopia Progressive high (degenerative) myopia Gout, unspecified cause, unspecified chronicity, unspecified site Mixed hyperlipidemia documented in this encounter Discontinued Medications Medication Sig Discontinue Reason Start Date End Da te memantine (NAMENDA XR) 14 mg extended release capsule Take 14 mg by mouth daily. Prescriber Discontinued 03/07/2024 08/15/2024 documented as of this encounter Historical Medications * This list may reflect changes made after this encounter. memantine (NAMENDA XR) 7 mg extended release capsule Take 1 capsule (7 mg total) by mouth 1 (one) time each day. added in this encounter Additional Health Concerns Assessment Noted Time PHQ-9 Depression Total Score: 0 08/15/19 25 1:15 PM EDT documented as of this encounter Care Teams Trauma Coordinator Relationship Specialty Start Date End Date Zane Cox MD [address] [place] [address] PCP - General 05/09/22 documented as of this encounter
--- OUTSIDE RECORDS SUMMARY | 2024-08-29 10:57 | XMS_ITS ---
Author Organization [facility] Address [address] [place] [address] Care Team Providers Care Break Out Worker Name Role Phone Kenny Gastonirais Primary Care Provider Tor Warner Unavailable [phone] Allergies Allergen (clinical drug ingredient) Drug/Non Drug Allergy documented on EMR Reaction Allergy Type Onset Date Status dairy products (uncoded) Unknown Allergy Active REASON FOR VISIT At Risk Footcare, Painful Nail(s) aggrevated by shoes and causing difficulty standing/walking. Medications Medication SIG (Take, Route, Frequency, Duration) Notes Start Date End Date Status Zyloprim Not-Taking Tussin prn Not-Taking Fiber Not-Taking Suppository Base Not -Taking Finasteride 5 MG 1 tablet Orally Once a day Not-Taking Potassium Citrate ER Not-Taking Tamsulosin HCl 0.4 MG Orally once daily Not-Taking Robitussin Chest Congestion Not-Taking Dulcolax Not-Taking Lipitor Not-Taking Selenium Sulfide Act lore Vitamin D Active Ammonium Lactate 12 % APPLY TO AFFECTED AREA ON FEET TWICE DAILY for 30 Active Allopurinol Active Clotrimazole 1 % 1 application Externally Twice a day for 28 day(s) 07/20/2021 Active MiraLax Active Mylanta Active guaiFENesin Active ibuprofen Active Levothyroxine Sodium 112 MCG 1 tablet in the morning on an empty stomach Orally mon-sat Active Colchicine 0.6 MG 1 tablet Orally PRN Active Flomax Active Chlorhexidine Gluconate 0.12 % Mouth/Throat Active Docusate Sodium Acti ve Finasteride Active Atorvastatin Calcium Active Bacitracin Active Bisacodyl Active Acetaminophen 325 mg prn Active Social History Tobacco Use: Social History [...] No Vital Signs Height 5ft 6in in 12/14/2023 Weight 140 lbs 12/14/2023 BMI 22.59 kg/m2 12/14/2023 Procedures Procedure Date Ordered Date Performed Result Body Sit e 03210-IFSVVCC NAIL, 6 OR MORE 12/14/2023 N/A 03161-HRIX SKIN LESIONS, 2 TO 4 12/14/2023 N/A Encounters Encounter Location Date Provider Diagnosis [facility] [address] [place] [address] [place] [phone] 12/14/2023 Tor Cruz Atherosclerosis of [place] artery of both lower extremities, with unspecified presence of clinical manifestation I70.203 ; Tinea unguium B35.1 ; Pain in right toe(s) M79.674 and Pain in left toe(s) M79.675 Assessments Encounter Date Diagnosis (ICD Code) Assessment Notes Treatment Notes Treatment Clinical Notes Section Notes 12/14/2023 Atherosclerosis of [place] artery of both lower extremities, with unspecified presence of clinical manifestation (ICD-10 - I70.203) 12/14/2023 Tinea unguium (ICD-10 - B35.1) 12/14/2023 Pain in right toe(s) (ICD-10 - M79.674) 12/14/2023 Pain in left toe(s) (ICD-10 - M79.675) Plan Of Treatment Pending Test Test Name Order Date [id number]-[id number] NAIL, 6 OR MORE 12/14/2023 46421-NLFP SKIN LESIONS, 2 TO 4 12/14/19 24 Next Appt Details Follow Up: 3 Months, Reason: Provider Name:Tor Cruz , 09/23/2024 09:00:00 AM, [address] [facility], [address], [place], [address], Procedure Notes * Category Sub-Category Detail Notes Debride Nail 6-10 Nail debridement Nail debridem ent performed extensively to reduce/remove overall nail length, girth, thickness, subungual debris, and necrotic tissue, by manual and electrical means through the use of a nail nipper and/or dremel, to more viable healthy nail plate or bed tissue 1-5. Silver nitrate used for any petechial bleeding as necessary. Patient chooses, no pharmaceutical tx (98469) Keratoma Treatment Parring or Cutting o f Benign Hyperkeratotic Lesion(s) 22068 (2-4 Lesions) - The Benign hyperkeratotic lesions, as described above were pared, and/or cut utilizing a sterile #15 blade, tissue nippers, and/or dremel, Q8 Progress Notes * Mary Lou FINLEY EDOB: (68 yo M)Acc No.[id number]:12/14/2023 Progress Note Patient:?Cesar Finley neo E Provider:?Tor Cruz DPM :1955???Age:68 Y???Sex:Male Odin e:12/14/2023 Address:[address] [place], [place] [id number] Pcp:Azul Cox Subjective: * Chief Complaints: * ???At Risk FootcarePainful N ail(s) aggrevated by shoes and causing difficulty standing/walking. * HPI: ???At Risk footcare:?Pt States Last PCP Visit:?Date?08/18/2023 * ROS:?General/Constitutional:?Nausea?denies.?Vomiting?denies.?Hunger Thirst?denies.?Loss appetite?denies.?Chills?denies.?Fatigue?denies.?Fever?denies.?Night Sweats?denies.?Unexplained weight loss?denies.?Ophthalmologic:?Blurred vision?denies.?Red eye?denies.?HEENTM:?Dentures?denies.?Dizziness?denies.?Glasses/contacts?admits.?Retinopathy?de nies.?Blurred/double vision?denies.?TMJ?denies.?Discharge/drainage?denies.?Implants?denies.?Hard of hearing denies.?Difficulty chewing/swallowing/speaking?denies.?Nose bleeds?denies.?Sore mouth?denies.?Swollen glands?denies.?Respiratory:?On Oxygen?denies.?Pneumonia/pleurisy?denies.?Bronchitis?denies.?Emphysema?denies.?C oughing?denies.?Cough blood?denies.?Shortness of breath?denies.?Wheezing?denies.?Cardiovascular:?Pacemaker?denies.?MVP?denies.?WPW?denies.?CHF?denies.?Heart attack?denies.?Septal defect?denies.?Rapid beat?denies.?Chest pain ?denies.?Atrial Fib.?denies.?Murmur/Palpitations?denies.?Gastrointestinal:?Hemorrhoids?denies.?Stomach/Abdominal pain?denies.?Dark blood stool?denies.?Irritable bowel ?denies.?Constipation?denies.?Diarrhea?denies.?Vomiting?denies.?Hematology:?Swelling?denies.?Bruising?denies.?Bleeding problem?denies.?Genitourinary:?Blood urine?denies.?Frequent/Painfu/urination/bladder control?denies.?Kidney stones?denies.?Infection (UTI)?denies.?Nephropathy?denies.?Musculoskeletal:?Hammertoes?denies.?Bunions?admits.?Scoliosis/kyphosis?denies.?Muscle cramps / walking?denies.?Generalized aches and pains?denies.?Weakness?denies.?Integ.:?Norman?denies.?Scars?denies.?Corns/calluses?admits.?Ingrown nails?admits.?Painful nails?admits.?Rashes?denies.?Neurologic:?Difficulty sleeping?denies.?Bipolar?denies.?Brain disorder?denies.?Balance trouble?admits.?Confusion?denies.?Fainting/blackouts?denies.?Headache?denies.?Tr emors?denies.? * Medical History:? * Surgical History:?No Surgica l History documented. * Hospitalization/Major Diagno stic Procedure:?Patient went to [facility] for a neck sprain. 02/[facility] [address] [place] [address] for neck pain 05/19[facility] in [place], pending sale to [facility] 11/2018[facility] 12/2022 * Family History:?Mother: dece ased, diagnosed [...] * Allergies:?dairy productsyes [Allergies Verified] Objective: * Vitals:?Ht: 5ft 6in, Wt:140, BMI:22.59, Shoe size: 7.5, Ht-cm: 167.64 cm, Wt-k.5 kg. * Examination: ???Vascular: ?DP PULSES:? 0/4, B/L.?PT PULSES:? 0/4, B/L.?CAPILLARY FILL TIME:? delayed, all digits, B/L.?SKIN TEMPERTURE GRADIENT OF THE LOWER EXTERMITIES:? decreased, cool to cool, proximal to distal, B/L.?HAIR GROWTH/TEXTURE/ELASTICITY/TURGOR:? decreased, B/L.?PIGMENTATION:? mottled, B/L.?EDEMA:? 2/4, non-pitting, without aching pain, B/L, Ankle(s).?CLAUDICATION:?denies, B/L.?REST PAIN:?denies, B/L.?Nails: ?NAILS are:?Elongated, overgrown, dystrophic, lytic, greater than 3mm thick, discolored and friable with crumbly malodorous subungual debris, with pain on palpation, 1-5 B/L.?Dermatologic: ?SKIN FINDINGS:? Skin exam reveals Keratotic lesion(s) located at, SUB MTH (s), 1,B/L, SUB MTH (s), 4 , B/L.? Assessment: * Assessment: 1.?Tinea unguium - B35.1?2.? Atherosclerosis of [place] artery of both lower extremities, with unspecified presence of clinical manifestation - I70.203?3.?Pain in right toe(s) - M79.674?4.?Pain in left toe(s) - M79.675? Plan: * Treatment: 2.?Atherosclerosis of [place] artery of both lower extremities, with unspecified presence of clinical manifestation?Procedure: 05958-FLBN SKIN LESIONS, 2 TO 4 * Procedures:?Debride Nail 6-10:?Nail debridement?Nail debridement performed extensively to reduce/remove overall nail length, girth, thickness, subungual debris, and necrotic tissue, by manual and electrical means through the use of a nail nipper and/or dremel, to more viable healthy nail plate or bed tissue 1-5. Silver nitrate used for any petechial bleeding as necessary. Patient chooses, no pharmaceutical tx (18105).?Keratoma Treatment:?Parring or Cutting of Benign Hyperkeratotic Lesion(s)?30317 (2-4 Lesions) - The Benign hyperkeratotic lesions, as described above were pared, and/or cut utilizing a sterile #15 blade, tissue nippers, and/or dremel, Q8.? * Procedure Codes:?30885 DEBRI DE NAIL, 6 OR MORE, Modifiers: XS 00391 TRIM SKIN LESIONS, 2 TO 4, Modifiers: XS , Q8 * Follow Up:?3 Months * Images: * Sign off status: Completed Addendum: * ? true * Provider:?Tor Cruz DPM Date:?2023 Generated for Hebert hawthorne/Lisa/eTmerismitting on:?08/29/2024 10:57 AM EDT History and Physical Notes * [...] distal, B/L TROPHIC CONDITION-TEXTURE/ELASTICITY/TURGOR/HAIR GROWTH (B): decreased, B/L EDEMA (C): 2/4, non-pitting, wi thout aching pain, B/L, Ankle(s) CLAUDICATION (C): denies, B/L REST PAIN: denies, B/L PIGMENTATION: mottled, B/L Nails NAILS are: Elongated, overg rown, dystrophic, lytic, greater than 3mm thick, discolored and friable with crumbly malodorous subungual debris, with pain on palpation, 1-5 B/L
--- OUTSIDE RECORDS SUMMARY | 2024-08-29 10:57 | XMS_ITS ---
Author Organization [facility] Address [address] [place] [address] Care Team Providers Care Metalizing Supervisor Name Role Phone Azul Cox Primary Care Provider Tor Warner Unavailable [phone] Allergies Allergen (clinical drug ingredient) Drug/Non Drug Allergy documented on EMR Reaction Allergy Type Onset Date Status dairy products (uncoded) Unknown Allergy Active REASON FOR VISIT At Risk Footcare, Painful Nail(s) aggrevated by shoes and causing difficulty standing/walking. Medications Medication SIG (Take, Route, Frequency, Duration) Notes Start Date End Date Status ibuprofen Active guaiFENesin Active Levothyroxine Sodium 112 MCG 1 tablet in the morning on an empty stomach Orally mon-sat Active Flomax Active Finasteride Active Bisacodyl Active Bacitracin Active Colchicine 0.6 MG 1 tablet Orally PRN Active Docusate Sodium Acti ve Chlorhexidine Gluconate 0.12 % Mouth/Throat Active Polyethylene Glycol Active Atorvastatin Calcium Active Acetaminophen 325 mg prn Active Suppository Base Not -Taking Fiber Not-Taking Potassium Citrate ER Not-Taking Lipitor Not-Taking Zyloprim Not-Taking Tussin prn Not-Taking Finasteride 5 MG 1 tablet Orally Once a day Not-Taking Dulcolax Not-Taking Robitussin Chest Congestion Not-Taking Allopurinol Active Tamsulosin HCl 0.4 MG Orally once daily Not-Taking Clotrimazole 1 % 1 application Externally Twice a day for 28 day(s) 07/20/2021 Active MiraLax Active Selenium Sulfide Act lore Mylanta Active Vitamin D Active Ammonium Lactate 12 % APPLY TO AFFECTED AREA ON FEET TWICE DAILY for 30 Active Social History Tobacco Use: Social History [...] Additional Findings: Tobacco non-user Current no nsmoker Vital Signs Height 5ft 6in in 06/17/2024 Weight 141 lbs 06/17/2024 BMI 22.76 kg/m2 06/17/2024 Blood pressure systolic 129 mm Hg 06/17/19 Blood pressure diastolic 63 mm Hg 025 Procedures Procedure Date Ordered Date Performed Result Body Sit e 28849-DTZYUZD NAIL, 6 OR MORE 06/17/2024 N/A 50896-SOSV SKIN LESIONS, 2 TO 4 06/17/2024 N/A Encounters Encounter Location Date Provider Diagnosis [facility] [address] [address] 06/17/2024 Tor Cruz Atherosclerosis of stockbridge artery of both lower extremities, with unspecified presence of clinical manifestation I70.203 ; Tinea unguium B35.1 ; Pain in right toe(s) M79.674 and Pain in left toe(s) M79.675 Assessments Encounter Date Diagnosis (ICD Code) Assessment Notes Treatment Notes Treatment Clinical Notes Section Notes 06/17/2024 Atherosclerosis of stockbridge artery of both lower extremities, with unspecified presence of clinical manifestation (ICD-10 - I70.203) 06/17/2024 Tinea unguium (ICD-10 - B35.1) 06/17/2024 Pain in right toe(s) (ICD-10 - M79.674) 06/17/2024 Pain in left toe(s) (ICD-10 - M79.675) Plan Of Treatment Pending Test Test Name Order Date [id number] NAIL, 6 OR MORE 06/17/2024 97719-FUZN SKIN LESIONS, 2 TO 4 06/17/19 25 Next Appt Details Follow Up: 3 Months, Reason: Provider Name:Tor Cruz , 09/23/2024 09:00:00 AM, [address] [facility], [address], [place], [id number], Procedure Notes * Category Sub-Category Detail Notes Debride Nail 6-10 Nail debridement Due to the cl inical pathology outlined in the exam findings, performance of this nail treatment is medically necessary as its management by an unskilled/untrained nonprofessional would put this patients foot and overall health at risk. Therefore, debridement to affected nail(s), as described in exam ( TA, T1, T2, T3, T4, T5, T6, T7, T8, T9), was performed exclusively by the physician of record to reduce/remove overall nail length, girth, thickness, subungual debris, and necrotic tissue, by manual and/or electrical means through the use of a nail nipper and/or dremel-type jig grinder set up operator, to a more viable healthy nail plate or bed tissue 6-10 nails in total. Silver nitrate was used for any petechial bleeding as necessary. Definitive antifungal treatment options, both pharmaceutical and surgical, have been reviewed and discussed with the patient. The patient solely prefers the use of intermittent/as needed professional debridement services for their nail condition and understands the need for additional periodic treatments to maintain effectiveness in symptomatic relief - 44459 Keratoma Treatment Parring or Cutting o f Benign Hyperkeratotic Lesion(s) (-56) 2-4 Lesions - Due to the at risk nature of the patients medical condition as documented in the exam findings, performance of this keratoderma treatment is medically necessary as its management by an unskilled/untrained nonprofessional would put this patients foot and overall health at risk. Therefore, the benign hyperkeratotic lesions, ( 4) in total, locations as stated and described in the exam ( SUB MTH (s), 1,B/L, SUB MTH (s), 4 , B/L), were pared, and/or cut utilizing a sterile 15 blade, tissue nippers, and/or power dremel instrumentation by the physician of record - 34860, Q8 Progress Notes * Mary Lou FINLEY EDOB: (68 yo M)Acc No.[id number]:06/17/2024 Progress Note Patient:?Cesar FINLEY E Provider:?Tor Cruz DPM :[id number]???Age:68 Y???Sex:Male Odin e:06/17/2024 Address:[address] [place], [place] [id number] Pcp:Azul Cox Subjective: * Chief Complaints: * [...] * Hospitalization/Major Diagno stic Procedure:?Patient went to [facility] for a neck sprain. [facility] [address] [place] [address] for neck pain 05/19[facility] in [place], [place] 11/2018[place] [place] 12/2022 * Family History:?Mother: dece ased, diagnosed with Unspecified heart disease.?Father: alive, diagnosed with Unspecified essential hypertension, Diabetic - NIDDM.?Friend(s): diagnosed with Unspecified heart disease.? No children. * Social History:?Tobacco Use:?Tobacco use other than smoking?Are you an other tobacco user??No ?Tobacco Control (Standard)?Tobacco use:?Nonsmoker ?Additional Findings: Tobacco non-user?Current nonsmoker ???Drugs/Alcohol:?Drugs?Have you used drugs other than those for medical reasons in the past 12 months??No ?Alcohol Screen?Did you have a drink containing alcohol in the past year??No ?Points?0 ?Interpretation?Negative ???Miscellaneous:?Caffeine: yes, frequency:, 1-2 cups per day. ?Children: no, none. ?Exercise: yes, bowling. ?Marital status: single. ?Occupation: unemployed. * Medications:?TakingPolyethyl paul Glycol Acetaminophen 325 mg prn Atorvastatin Calcium Bacitracin Bisacodyl Colchicine 0.6 MG Tablet 1 tablet Orally PRN Chlorhexidine Gluconate 0.12 % Solution Mouth/Throat Docusate Sodium Finasteride Flomax guaiFENesin ibuprofen Levothyroxine Sodium 112 MCG Tablet 1 tablet in the morning on an empty stomach Orally mon-sat MiraLax Mylanta Selenium Sulfide Vitamin D Ammonium Lactate 12 % Cream APPLY TO AFFECTED AREA ON FEET TWICE DAILY Allopurinol Clotrimazole 1 % Cream 1 application Externally Twice a day Taking Polyethylene Glycol Taking Acetaminophen 325 mg prn Taking Atorvastatin Calcium Taking Bacitracin Taking Bisacodyl Taking Colchicine 0.6 MG Tablet 1 tablet Orally PRN Taking Chlorhexidine Gluconate 0.12 % Solution Mouth/Throat Taking Docusate Sodium Taking Finasteride Taking Flomax Taking guaiFENesin Taking ibuprofen Taking Levothyroxine Sodium 112 MCG Tablet 1 tablet in the morning on an empty stomach Orally mon-sat Taking MiraLax Taking Mylanta Taking Selenium Sulfide Taking Vitamin D Taking Ammonium Lactate 12 % Cream APPLY TO AFFECTED AREA ON FEET TWICE DAILY Taking Allopurinol Taking Clotrimazole 1 % Cream 1 application Externally Twice a day Not- Taking/PRNTamsulosin HCl 0.4 MG Capsule Orally once daily Robitussin Chest Congestion Dulcolax Lipitor Potassium Citrate ER Zyloprim Finasteride 5 MG Tablet 1 tablet Orally Once a day Tussin prn Fiber Suppository Base Medication List reviewed and reconciled with the patientNot-Taking/PRN Tamsulosin HCl 0.4 MG Capsule Orally once daily Not- Taking/PRN Robitussin Chest Congestion Not-Taking/PRN Dulcolax Not-Taking/PRN Lipitor Not-Taking/PRN Potassium Citrate ER Not-Taking/PRN Zyloprim Not-Taking/PRN Finasteride 5 MG Tablet 1 tablet Orally Once a day Not-Taking/PRN Tussin prn Not-Taking/PRN Fiber Not-Taking/PRN Suppository Base Medication List reviewed and reconciled with the patient * Allergies:?dairy productsyes [Allergies Verified] Objective: * Vitals:?Ht: 5ft 6in, Wt:141, BMI:22.76, Shoe size: 7.5, BP:129/63mm Hg, Ht-cm: 167.64 cm, Wt-k.96 kg. * Examination: ???Vascular: ?DP PULSES (B):? 0/4, B/L.?PT PULSES (B):? 0/4, B/L.?CAPILLARY FILL TIME:? delayed, all digits, B/L.?TROPHIC CONDITION-TEXTURE/ELASTICITY/TURGOR/HAIR GROWTH (B):? decreased, with sparse to absent hair growth, B/L.?TEMPERTURE GRADIENT (C):? decreased, cool to cool, proximal to distal, B/L.?PIGMENTATION:? mottled, B/L.?EDEMA (C):? 2/4, non-pitting, without aching pain, B/L, Ankle(s).?CLAUDICATION (C):?denies, B/L.?REST PAIN:?denies, B/L.?Nails: ?NAILS are:?Elongated, overgrown, dystrophic, lytic, greater than 3mm thick, discolored and friable with crumbly malodorous subungual debris, with pain on palpation, TA, T1, T2, T3, T4, T5, T6, T7, T8, T9.?Dermatologic: ?SKIN FINDINGS:? Skin exam reveals Keratotic lesion(s) located at, SUB MTH (s), 1,B/L, SUB MTH (s), 4 , B/L.? Assessment: * Assessment: 1.?Tinea unguium - B35.1???2 .?Atherosclerosis of stockbridge artery of both lower extremities, with unspecified presence of clinical manifestation - I70.203 (Primary)???3.?Pain in right toe(s) - M79.674???4.?Pain in left toe(s) - M79.675??? Plan: * Treatment: 2.?Tinea unguium?Procedure: [id number] NAIL, 6 OR MORE * Procedures:?Debride Nail 6-10:?Nail debridement?Due to the clinical pathology outlined in the exam findings, performance of this nail treatment is medically necessary as its management by an unskilled/untrained nonprofessional would put this patients foot and overall health at risk. Therefore, debridement to affected nail(s), as described in exam (??TA, T1, T2, T3, T4, T5, T6, T7, T8, T9), was performed exclusively by the physician of record to reduce/remove overall nail length, girth, thickness, subungual debris, and necrotic tissue, by manual and/or electrical means through the use of a nail nipper and/or dremel-type jig grinder set up operator, to a more viable healthy nail plate or bed tissue 6- 10 nails in total. Silver nitrate was used for any petechial bleeding as necessary. Definitive antifungal treatment options, both pharmaceutical and surgical, have been reviewed and discussed with the patient. The patient solely prefers the use of intermittent/as needed professional debridement services for their nail condition and understands the need for additional periodic treatments to maintain effectiveness in symptomatic relief - 08804.?Keratoma Treatment:?Parring or Cutting of Benign Hyperkeratotic Lesion(s)?(-56) 2-4 Lesions - Due to the at risk nature of the patients medical condition as documented in the exam findings, performance of this keratoderma treatment is medically necessary as its management by an unskilled/untrained nonprofessional would put this patients foot and overall health at risk. Therefore, the benign hyperkeratotic lesions, ( 4) in total, locations as stated and described in the exam (?SUB MTH (s),?1,B/L,?SUB MTH (s),?4?,?B/L), were pared, and/or cut utilizing a sterile 15 blade, tissue nippers, and/or power dremel instrumentation by the physician of record - 25294, Q8.? * Procedure Codes:?75585 DEBRI DE NAIL, 6 OR MORE, Modifiers: XS 33379 TRIM SKIN LESIONS, 2 TO 4, Modifiers: XS , Q8 * Follow Up:?3 Months * Images: * Sign off status: Completed true * Provider:?Tor Cruz DPM Date:?2024 Generated for Hebert hawthorne/Lisa/Eleazar on:?08/29/2024 10:56 AM [...] malodorous subungual debris, with pain on palpation, TA, T1, T2, T3, T4, T5, T6, T7, T8, T9
--- OUTSIDE RECORDS SUMMARY | 2024-08-29 10:57 | XMS_ITS | Clinical Summary ---
Author Organization [facility] Address [address] [place] [address] Phone Care Team Providers Care Field Recorder Name Role Phone Zane Cox MD Primary Care Provider [phone] Allergies Active Allergy Reactions Criticality Noted Date Comments Lactose GI intolerance Low 02/27/2015 Medications cyclobenzaprine (FLEXERIL) 10 mg tablet Take 1 tablet (10 mg total) by mouth 3 (three) times a day if needed for muscle spasms. 02/28/20 15 Active dextromethorpha n HBr 15 mg/5 mL liquid Take by mouth. Activ e colchicine (COLCRYS) 0.6 mg tablet Take 1 tablet (0.6 mg total) by mouth 1 (one) time each day. Active clotrimazole (LOTRIMIN) 1 % cream Apply 1 Application topically 2 (two) times a day. 08/29/19 24 Active chlorhexidine (PERIDEX) 0.12 % solution Use 15 mL in the mouth or throat if needed. 03/25/20 24 Active bisacodyL (DULCOLAX) 10 mg suppository Insert 1 suppository (10 mg total) into the rectum 1 (one) time if needed for constipation. 11/22/19 24 Active bacitracin 500 unit/gram ointment Apply 1 Application topically 2 (two) times a day. 11/22/19 24 Active allopurinoL (ZYLOPRIM) 100 mg tablet Take 1 tablet (100 mg total) by mouth 1 (one) time each day. 11/22/19 24 Active acetaminophen (TYLENOL) 650 mg suppository Insert 1 suppository (650 mg total) into the rectum every 4 (four) hours if needed for mild pain. Active acetaminophen (TYLENOL) 325 mg tablet Take 2 tablets (650 mg total) by mouth every 4 (four) hours if needed. 11/22/19 24 Active elastic bandage bandage 1 Each by Does not apply route daily. 06/20/19 24 Active NON FORMULARY MISC. DEVICES (BELT CLIP) MISC 1 Each by Does not apply route daily. 06/20/19 24 Active docusate sodium (COLACE) 100 mg capsule Take 1 Capsule by mouth 2 times daily as needed for Constipation. 02/19/20 24 Active donepeziL (ARICEPT) 5 mg tablet Take 1 Tablet by mouth at bedtime. Active finasteride (PROSCAR) 5 mg tablet Take 1 tablet (5mg) by mouth once daily at 8pm (for enlarged prostate) 03/21/20 24 Active ibuprofen (ADVIL,MOTRIN) 200 mg tablet Take 1 Tablet by mouth every 8 hours as needed for Pain. 11/22/19 24 Active levothyroxine (SYNTHROID, LEVOTHROID) 150 mcg tablet Take 1 Tablet by mouth daily for 360 days. 02/19/20 24 025 Active aluminum-magnes ium hydroxide-simet hicone (MAALOX) 200-200-20 mg/5 mL suspension Take 15 mL by mouth as needed (heartburn/silvia gestion). 11/23/19 24 Active selenium sulfide (Anti-Dandruff) 1 % shampoo Apply 1ml topically twice weekly, on monday & monday. massage shampoo into wet scalp, then rinse thoroughly (for itching or scalp irritation) 02/29/20 22 Active allopurinoL (ZYLOPRIM) 300 mg tablet Take 0.5 Tablets by mouth daily. 02/14/20 24 Active pantoprazole (PROTONIX) 40 mg EC tablet Take 1 tablet (40 mg total) by mouth 1 (one) time each day before breakfast. Do not crush, chew, or split. 90 each 1 06/05/19 25 025 Active tamsulosin (FLOMAX) 0.4 mg 24 hr capsule Take 1 capsule (0.4 mg total) by mouth 1 (one) time each day. Capsules should be taken 30 minutes following the same meal each day. 90 each 1 06/05/19 25 025 Active atorvastatin (LIPITOR) 10 mg tablet Take 1 tablet (10 mg total) by mouth at bedtime. 90 each 1 06/05/19 25 025 Active ferrous sulfate 325 mg (65 mg elemental iron) tablet Take 1 tablet (325 mg total) by mouth 1 (one) time each day. 90 each 07/02/19 25 026 Active ammonium lactate (AMLACTIN) 12 % cream Apply dime-sized amount topically to the soles of feet twice daily, in the morning & in the evening after shower (for dry skin) 140 g 07/08/19 25 Active memantine (NAMENDA XR) 7 mg extended release capsule Take 1 capsule (7 mg total) by mouth 1 (one) time each day. Active polyethylene glycol (PEG) 17 gram/dose oral powder Take 17 g via g-tube 1 (one) time each day if needed for constipation. 17 g 3 08/29/19 25 Active dicyclomine (BENTYL) 10 mg capsule Take 1 Capsule by mouth 4 times daily as needed (abd pain) for up to 180 days. Take 4 times daily as needed for abdominal pain 02/19/20 24 025 memantine (NAMENDA XR) 14 mg extended release capsule Take 14 mg by mouth daily. 03/07/20 24 025 Discontinu ed(Prescri slick Discontinu ed) polyethylene glycol (PEG) 17 gram/dose oral powder Mix 17 grams (measure to line in cap) in 8oz of fluid & give by mouth once daily in the morning (for constipation) 02/29/20 22 025 Discontinu ed(Reorder ) Active Problems Problem Noted Date Diagnosed Date Moderate early onset Alzheimer's dementia 2023 Vitamin D deficiency 12/13/2022 Gout 08/10/2022 Prediabetes 09/01/2021 COVID-19 virus infection 06/25/2021 Benign prostatic hyperplasia 11/13/2020 Cognitive impairment 11/13/2020 Closed fracture of odontoid process of axis 11/04 Hyperlipidemia 08/18/2016 Cataract 12/22/2014 Urinary retention 01/29/2014 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 Omar MATTHEWS update Down syndrome 08/01/2005 Hypothyroidism 08/01/2005 Encounters Date Type Department Care Team Description 08/15/2024 9:00 AM EDT Office Visit Internal Medicine - [place] [address] [phone] Zane Cox MD Cognitive impairment (Primary Dx); Down syndrome; Bilateral degenerative progressive high myopia; Gout, unspecified cause, unspecified chronicity, unspecified site; Mixed hyperlipidemia 07/31/2024 Telephone Internal Medicine [facility] [address] [phone] Zane Cox MD Khan: Physician Order 06/19/2024 9:21 AM EST - 06/19/2024 11:59 PM EST Hospital Encounter [facility] Xray [address] [place] [phone] Lower abdominal pain, unspecified Discharge Disposition: Home or Self Care 06/11/2024 Telephone Internal Medicine [facility] [address] [phone] Zane Cox MD Khan: Medical Record Dr Trammell 06/04/2024 9:00 AM EST - 06/04/2024 11:59 PM EST Hospital Encounter [facility] Ultrasound [address] [place] [phone] Abdominal pain, unspecified abdominal location Discharge Disposition: Home or Self Care from Last 3 Months Immunizations Name Administration Dates Next Due Hepatitis B (Qrmjmqs-S-Guqsc , Recombivax HB-Adult) 19yo and older 06/12/2019,04/18/2019,10/16/2018,01/13,07/16/2013,06/10/2013 Influenza trivalent, 0.5mL ( Fluad) 65yo and older 02/19/2024,02/17/2023,03/19/2020,03/30 Influenza trivalent, 0.5mL, preservative free (Fluarix; FluLaval; Fluzone) ages 6mo and older (Afluria) 3 years and older 03/10/2021,03/22/2019,04/05/2016,03/04,03/31/2014,03/25/2012,03/16/2011 ,05/12/2008,04/09/2007,04/14/2005 MMR, measles mumps and rubel la Live (Priorix; M-M-R II) 12mo and older 04/18/2019,10/16/2018 PPD Test 01/02/2017, 5,12/03/2012,02/01,02/11/2008,08/01/2005,11/26/1999 [employer] SARS-CoV-2 COVID-19, mRNA, LNP-S, preservative free 01/13/2022,07/09/2020,06/15/2020 Pneumococcal conjugate 20 va lent (Prevnar 20, PCV 20) 2mo and older 02/17/2023 Pneumococcal polysaccharide 23 valent (Pneumovax 23) 2yo and older 06/03/2004 Td Tetanus diptheria (Tdvax) 7yo and older 04/16/2018,06/05/1996 Tdap Tetanus diptheria acell ular pertussis (Boostrix; Adacel) 7yo and older 01/09/2007 Zoster recombinant (Shingrix ) 19yo and older 08/18/2020,07/20/2020 Surgical History Surgery Date Site/Laterality Comments OTHER SURGICAL HISTORY 08/10 PROCEDURE: PROSTATE SPEC. 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 For example, early childhood associate or elderly care for an older adult? [...] on file Sexual Orientation Not on file Obstetrics History Last Filed Vital Signs Vital Sign Reading Time Taken Comments Blood Pressure 118/72 08/15/2024 9:21 AM EDT Pulse 77 08/15/2024 9:21 AM EDT Temperature - - Respiratory Rate - - Oxygen Saturation 98% 08/15/2024 9:21 AM EDT Inhaled Oxygen Concentration - - Weight 63.5 kg (140 lb) 08/15/2024 9:21 AM EDT Height 160 cm (5' 3 ) 03/12/2024 9:59 AM EDT Body Mass Index 24.8 03/12/2024 9:59 AM EDT Plan of Treatment Health Maintenance Due Date Last Done Comments RSV Immunization Patients 60+ Years Old (1 - Risk 60-74 years 1-dose series) 2017 Colorectal Cancer Screening: Stool Based Tests (FOBT/FIT) 07/01/2023 07/01/2022 COVID-19 Vaccine ( season) 2024 01/13/2022, 07/09/2020, 06/15/2020 Medicare Annual Wellness Visit 02/18/2025 02/19/2024 Depression Screening 08/14/2025 08/14/2024, 02/19/20 24 Social Influencers of Health Screening 08/14/2025 08/14/2024 Falls Risk Assessment 08/15/2025 08/15/2024, 024 DTaP,Tdap,and Td Vaccines (4 - Td or Tdap) 04/16/2028 04/16/2018, 01/09/2007, 06/05/1996 Cholesterol Screening (Lipid Panel) 02/18/2029 02/19/2024, 02/19/2024 MMR Vaccines Aged Out 04/18/2019, 10/16/2018 No lo nger eligible based on patient's age to complete this topic Hepatitis B Vaccines Completed 06/12/2019, 04/18/2019, 10/16/2018, Additional history exists Zoster Vaccines Completed 08/18/2020, 07/20/2020 Hepatitis C Screening Completed 12/13/2022 Pneumococcal Vaccine: 50+ Years Completed 02/17/2023, 06/03/2004 Influenza Vaccine Completed 02/19/2024, , 03/25/2022, Additional history exists HIB Vaccines Aged Out No longer eligi ble based on patient's age to complete this topic HPV Vaccines Aged Out No longer eligi ble based on patient's age to complete this topic Hepatitis A Vaccines Aged Out No long er eligible based on patient's age to complete this topic IPV Vaccines Aged Out No longer eligi ble based on patient's age to complete this topic Meningococcal ACWY Vaccine Aged Out N o longer eligible based on patient's age to complete this topic Meningococcal B Vacine Aged Out No lo nger eligible based on patient's age to complete this topic RSV Immunization Patients Under 20 months Aged Out No longer eligible based on patient's age to complete this topic Varicella Vaccines Aged Out No longer eligible based on patient's age to complete this topic Procedures Procedure Name Priority Date/Time Associated Diagnosis Comments XR ABDOMEN 1 VIEW Routine 06/19/2024 10: 06 AM EST Lower abdominal pain, unspecified US ABDOMEN COMPLETE Routine 06/04/2024 9 :49 AM EST Abdominal pain, unspecified abdominal location DEPRESSION SCREENING Routine 02/19/2024 FALLS RISK ASSESSMENT Routine 02/19/2024 LIPID PANEL Routine 02/19/2024 HEPATITIS C SCREENING Routine 12/13/2022 STOOL BASED TEST Routine 07/01/2022 from Last 3 Months or Most Recently Relevant to Health Maintenance Results * XR Abdomen 1 View (06/19/2024 10:06 AM EST) Anatomical Region Laterality Modality Body Radiographic Renée ging 06/19/2024 10:5 6 AM EST Impressions 06/19/2024 10:58 AM EST The patient was unable to undergo fluoroscopic assessment. Shaper Setter radiograph does not demonstrate any evidence of small bowel obstruction -------- FINAL REPORT -------- Dictated By: Storm Roche Dictated Date: 06/19/2024 10:56 ET Assigned Physician: Storm Roche Reviewed and Electronically Signed By: Storm Roche Signed Date: 06/19/2024 10:58 ET Workstation ID: [id number] Transcribed By: Self Edit Transcribed Date: 06/19/2024 10:56 ET Narrative 06/19/2024 10:58 AM EST EXAMINATION: ABDOMEN CLINICAL INFORMATION: Abdomen pain. Developmental delays and cognitive issues preclude history. The patient is unable to provide any history and was unable to undergo fluoroscopic assessment. The patient was unable or unwilling to participate in the exam. No contrast was administered COMPARISON: None. TECHNIQUE: Frontal view of the abdomen FINDINGS: No suspicious focal bony lesion. No abnormal calcification. Large amount of fecal residue throughout the colon including the rectum. No disproportionate small bowel dilation. No evidence of an abnormal mass or collection Procedure Note Storm Roche MD - 06/19/2024 EXAMINATION: ABDOMEN CLINICAL INFORMATION: Abdomen pain. Developmental delays and cognitive issues preclude history.The patient is unable to provide any history and was unable to undergofluoroscopic assessment. The patient was unable or unwilling to participate in the exam. Nocontrast was administered COMPARISON: None. TECHNIQUE: Frontal view of the abdomen FINDINGS: No suspicious focal bony lesion. No abnormal calcification. Large amountof fecal residue throughout the colon including the rectum. Nodisproportionate small bowel dilation. No evidence of an abnormal mass or collection IMPRESSION: The patient was unable to undergo fluoroscopic assessment. Shaper Setter radiograph does not demonstrate any evidence of small bowelobstruction -------- FINAL REPORT -------- Dictated By: Storm Roche Dictated Date: 06/19/2024 10:56 ET Assigned Physician: Storm Roche Reviewed and Electronically Signed By: Storm Roche Signed Date: 06/19/2024 10:58 ET Workstation ID: [id number] Transcribed By: Self Edit Transcribed Date: 06/19/2024 10:56 ET us Brittny DHILLON IMG XR PROCEDURES Final Resul t * US Abdomen Complete (06/04/2024 9:49 AM EST) Anatomical Region Laterality Modality Body Ultrasound 06/11/2024 11:4 8 AM EST Impressions 06/11/2024 11:51 AM EST Limited exam. No etiology for pain demonstrated. Specifically, no cholelithiasis or biliary dilation -------- FINAL REPORT -------- Dictated By: Storm Roche Dictated Date: 06/11/2024 11:48 ET Assigned Physician: Storm Roche Reviewed and Electronically Signed By: Storm Roche Signed Date: 06/11/2024 11:51 ET Workstation ID: [id number] Transcribed By: Self Edit Transcribed Date: 06/11/2024 11:48 ET Narrative 06/11/2024 11:51 AM EST EXAMINATION: ABDOMEN ULTRASOUND CLINICAL INFORMATION: Pain. Reportedly the patient has special needs. The patient was unable to be optimally positioned or suspend respirations COMPARISON: Portions of ultrasound 11/06/2003 TECHNIQUE: Ultrasound of the abdomen FINDINGS: QUALITY: The study is limited. Bowel obscures some of the anatomy PANCREAS: Obscured by gas ABDOMINAL AORTA/IVC: Some of the upper IVC is visualized without a definite abnormality. No aneurysm demonstrated. The maximum external diameter of the aorta is 1.8 cm. LIVER: The right lobe of the liver measures 18.8 cm. This is 1 standard deviation above the mean expected. The liver contour is smooth. No suspicious focal liver lesion demonstrated BILIARY: The gallbladder is fluid-filled. No cholelithiasis, gallbladder wall thickening, pericholecystic fluid or biliary dilation. COMMON BILE DUCT: The common duct measures 0.5 cm which is within normal limits. GALLBLADDER TENDERNESS: There is no reported tenderness to transducer pressure over the gallbladder. KIDNEYS: Right renal length: ??9.6 cm in greatest length. Left renal length: ??8.7 cm in greatest length. There is no dilation of the intrarenal collecting system on either side. There is no suspicious focal lesion demonstrated on either side. There is no shadowing calculus demonstrated ??on either side. SPLEEN: The spleen measures 8.2 cm. No focal abnormality. FLUID: No intraperitoneal fluid demonstrated in the upper abdomen Procedure Note Storm Roche MD - 06/11/2024 EXAMINATION: ABDOMEN ULTRASOUND CLINICAL INFORMATION: Pain. Reportedly the patient has special needs. The patient was unable to beoptimally positioned or suspend respirations COMPARISON: Portions of ultrasound 11/06/2003 TECHNIQUE: Ultrasound of the abdomen FINDINGS: QUALITY: The study is limited. Bowel obscures some of the anatomy PANCREAS: Obscured by gas ABDOMINAL AORTA/IVC: Some of the upper IVC is visualized without adefinite abnormality. No aneurysm demonstrated. The maximum externaldiameter of the aorta is 1.8 cm. LIVER: The right lobe of the liver measures 18.8 cm. This is 1 standarddeviation above the mean expected. The liver contour is smooth. Nosuspicious focal liver lesion demonstrated BILIARY: The gallbladder is fluid-filled. No cholelithiasis, gallbladderwall thickening, pericholecystic fluid or biliary dilation. COMMON BILE DUCT: The common duct measures 0.5 cm which is within normallimits. GALLBLADDER TENDERNESS: There is no reported tenderness to transducerpressure over the gallbladder. KIDNEYS: Right renal length: 9.6 cm in greatest length. Left renal length: 8.7 cm in greatest length. There is no dilation of the intrarenal collecting system on either side. There is no suspicious focal lesion demonstrated on either side. There is no shadowing calculus demonstrated on either side. SPLEEN: The spleen measures 8.2 cm. No focal abnormality. FLUID: No intraperitoneal fluid demonstrated in the upper abdomen IMPRESSION: Limited exam. No etiology for pain demonstrated. Specifically, no cholelithiasis or biliary dilation -------- FINAL REPORT -------- Dictated By: Storm Roche Dictated Date: 06/11/2024 11:48 ET Assigned Physician: Storm Roche Reviewed and Electronically Signed By: Storm Roche Signed Date: 06/11/2024 11:51 ET Workstation ID: [id number] Transcribed By: Self Edit Transcribed Date: 06/11/2024 11:48 ET Result [facility] Zane Cox MD IM US PROCEDURES Final Result * Falls Risk Assessment (02/19/2024) [facility] Falls Risk Assessment Abstracted Result [facility] Provider HEALTH MAINTENANCE Final Result * Depression Screening (02/19/2024) [facility] Depression Screening Abstracted Result [facility] Final Result * Lipid panel (02/19/2024) [facility] LDL/HDL Ratio 3 0 - 4 Triglycerides 99 0 - 150 mg/dL Cholesterol 130 0 - 200 mg/dL HDL 46 >=40 mg/dL LDL Cholesterol 65 0 - 100 mg/dL Blood Venous blood specimen / Unknown Result [facility] Provider LAB BLOOD ORDERABLES Kyra l Result * Hepatitis C Screening (12/13/2022) [facility] Hepatitis C Screening Abstracted Result [facility] Provider HEALTH MAINTENANCE Final Result * Stool Based Tests (FOBT/FIT) (07/01/2022) [facility] Colorectal Cancer Screening: Stool Based Tests No Interpretation , Abstracted us Historical Provider HEALTH MAINTENANCE Final Result from Last 3 Months or Most Recently Relevant to Health Maintenance Insurance MEDICAID - [place] MEDICARE Care Teams Field Recorder Relationship Specialty Start Date End Date Zane Cox MD [address] [place] [address] [address] [place] [address] PCP - General 05/09/22
== END 2024-08-29 10:18 | disposition home or self-care (01) ==
LOC: HO.HSMS 09:18
PROVIDERS: PCP Internal Medicine; Visit Provider Nurse Practitioner Family
DX: G30.9 Alzheimer's disease, unspecified (principal); F02.80 Dementia in other diseases classified elsewhere, unspecified severity, without behavioral disturbance, psychotic disturbance, mood disturbance, and anxiety; Q90.9 Down syndrome, unspecified
CPT/HCPCS: 99214

== ENCOUNTER → 2024-08-29 09:17 | Outpatient (BNVA) | payer MEDICARE, MEDICAID, SELFPAY | PROVIDERS: PCP Internal Medicine; Visit Provider Nurse Practitioner Family | DX: G30.9 Alzheimer's disease, unspecified (principal); F02.80 Dementia in other diseases classified elsewhere, unspecified severity, without behavioral disturbance, psychotic disturbance, mood disturbance, and anxiety; Q90.9 Down syndrome, unspecified | CPT/HCPCS: 99212 ==

== ENCOUNTER 2024-10-07 09:33 | Outpatient (REF) | payer MEDICARE, MEDICAID, SELFPAY ==
--- OUTSIDE RECORDS SUMMARY | 2024-10-07 10:24 | XMS_ITS | Encounter Summary ---
Author Organization [facility] Address [address] [place] [address] Care Team Providers Care Oil Analyst Name Role Phone Zane Cox MD Primary Care Provider [phone] Reason for Visit * Reason Onset Date Comments Forms: Physician Orders 10/01/2024 Encounter Details Date Type Department Care Team ([facility] st Contact Info) Description 10/01/2024 Telephone Internal Medicine - [place] 175 [facility] [address] [place] [phone] Zane Cox MD [address] [phone] Forms: Physician Orders Social History Tobacco Use Types Packs/Day Years [...] care for your loved ones. For example, child development associate teacher or elderly care for an older adult? [...] as of this encounter Progress Notes * Stuart Meredith - 10/03/2024 12:11 PM EDT Sonam Zhu picked up physician orders at the front desk manager. * Caitlyn Samuel MA - 10/02/2024 7:59 AM EDT Orders are in dr coreen peterson for signature. * Mikayla Carcamo MA - 10/02/2024 7:53 AM EDT PCP orders for Medication. Given to lead RISHABH * Stuart Meredith - 10/01/2024 9:00 AM EDT Physician orders dropped off Call [phone] or [phone] When completed for pickup. documented in this encounter Plan of Treatment Not on file documented as of this encounter Visit Diagnoses Not on filedocumented in this encounter Additional Health Concerns Assessment Noted Time PHQ-9 Depression Total Score: 0 08/15/19 25 1:15 PM EDT documented as of this encounter Care Teams Oil Analyst Relationship Specialty Start Date End Date Zane Cox MD [address] [place] [address] PCP - General 05/09/22 documented as of this encounter
--- OUTSIDE RECORDS SUMMARY | 2024-10-07 10:24 | XMS_ITS | Clinical Summary ---
Author Organization [facility] Address [address] [place] [phone] Phone Care Team Providers Care Health Economist Name Role Phone Zane Cox MD Primary Care Provider [phone] Allergies Active Allergy Reactions Criticality Noted Date Comments Lactose GI intolerance Low 02/27/2015 Medications cyclobenzaprine (FLEXERIL) 10 mg tablet Take 1 tablet (10 mg total) by mouth 3 (three) times a day if needed for muscle spasms. 5 Active dextromethorphan HBr 15 mg/5 mL liquid Take by mouth. Activ e colchicine (COLCRYS) 0.6 mg tablet Take 1 tablet (0.6 mg total) by mouth 1 (one) time each day. Active clotrimazole (LOTRIMIN) 1 % cream Apply 1 Application topically 2 (two) times a day. 4 Active chlorhexidine (PERIDEX) 0.12 % solution Use 15 mL in the mouth or throat if needed. 4 Active bisacodyL (DULCOLAX) 10 mg suppository Insert 1 suppository (10 mg total) into the rectum 1 (one) time if needed for constipation. 4 Active bacitracin 500 unit/gram ointment Apply 1 Application topically 2 (two) times a day. 4 Active allopurinoL (ZYLOPRIM) 100 mg tablet Take 1 tablet (100 mg total) by mouth 1 (one) time each day. 4 Active acetaminophen (TYLENOL) 650 mg suppository Insert 1 suppository (650 mg total) into the rectum every 4 (four) hours if needed for mild pain. Active acetaminophen (TYLENOL) 325 mg tablet Take 2 tablets (650 mg total) by mouth every 4 (four) hours if needed. 4 Active elastic bandage bandage 1 Each by Does not apply route daily. 4 Active NON FORMULARY MISC. DEVICES (BELT CLIP) MISC 1 Each by Does not apply route daily. 4 Active docusate sodium (COLACE) 100 mg capsule Take 1 Capsule by mouth 2 times daily as needed for Constipation. 4 Active donepeziL (ARICEPT) 5 mg tablet Take 1 Tablet by mouth at bedtime. Active finasteride (PROSCAR) 5 mg tablet Take 1 tablet (5mg) by mouth once daily at 8pm (for enlarged prostate) 4 Active ibuprofen (ADVIL,MOTRIN) 200 mg tablet Take 1 Tablet by mouth every 8 hours as needed for Pain. 4 Active levothyroxine (SYNTHROID, LEVOTHROID) 150 mcg tablet Take 1 Tablet by mouth daily for 360 days. 4 02/14/20 25 Active aluminum-magnesi um hydroxide-simeth icone (MAALOX) 200-200-20 mg/5 mL suspension Take 15 mL by mouth as needed (heartburn/silvia gestion). 4 Active selenium sulfide (Anti-Dandruff) 1 % shampoo Apply 1ml topically twice weekly, on monday & monday. massage shampoo into wet scalp, then rinse thoroughly (for itching or scalp irritation) 2 Active allopurinoL (ZYLOPRIM) 300 mg tablet Take 0.5 Tablets by mouth daily. 4 Active pantoprazole (PROTONIX) 40 mg EC tablet Take 1 tablet (40 mg total) by mouth 1 (one) time each day before breakfast. Do not crush, chew, or split. 90 each 1 5 12/03/19 25 Active tamsulosin (FLOMAX) 0.4 mg 24 hr capsule Take 1 capsule (0.4 mg total) by mouth 1 (one) time each day. Capsules should be taken 30 minutes following the same meal each day. 90 each 1 5 12/03/19 25 Active atorvastatin (LIPITOR) 10 mg tablet Take 1 tablet (10 mg total) by mouth at bedtime. 90 each 1 5 12/03/19 25 Active ferrous sulfate 325 mg (65 mg elemental iron) tablet Take 1 tablet (325 mg total) by mouth 1 (one) time each day. 90 each 3 5 07/02/19 26 Active ammonium lactate (AMLACTIN) 12 % cream Apply dime-sized amount topically to the soles of feet twice daily, in the morning & in the evening after shower (for dry skin) 140 g 5 Active memantine (NAMENDA XR) 7 mg extended release capsule Take 1 capsule (7 mg total) by mouth 1 (one) time each day. Active polyethylene glycol (PEG) 17 gram/dose oral powder Take 17 g via g-tube 1 (one) time each day if needed for constipation. 17 g 3 5 Active calcium carbonate-vitami n D 500 mg-5 mcg (200 unit) per tablet Take 1 tablet by mouth 1 (one) time each day. Active cholecalciferol (Vitamin D3) 50 mcg (2,000 unit) tablet Take 1 tablet (2,000 Units total) by mouth 1 (one) time each day. 90 tablet 3 5 09/12/19 26 Active Active Problems Problem Noted Date Diagnosed Date Moderate early onset Alzheim er's dementia ([facility] V24, [facility] V28) 08/18/2023 Vitamin D deficiency 12/13/2022 Gout 08/10/2022 Prediabetes 09/01/2021 COVID-19 virus infection 06/25/2021 Benign prostatic hyperplasia 11/13/2020 Cognitive impairment 11/13/2020 Closed fracture of odontoid process of axis ([facility] V24, [facility] V28) 11/27/2018 Hyperlipidemia 08/18/2016 Cataract 12/22/2014 Urinary retention 01/29/2014 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 Nelson Kang update Down syndrome 08/01/2005 Hypothyroidism 08/01/2005 Encounters Date Type Department Care Team Description 10/01/2024 Telephone Internal Medicine [address] [phone] Zane Cox MD Forms: Physician Orders 09/03/2024 Telephone Internal Medicine [address] [phone] Zane Cox MD Med Refill 09/03/2024 [facility] [address] [phone] Mikayla Carcamo [place] faxed order (L&C) 08/15/2024 9:00 AM EDT Office Visit Internal [address] [phone] Zane Cox MD Cognitive impairment (Primary Dx); Down syndrome; Bilateral degenerative progressive high myopia; Gout, unspecified cause, unspecified chronicity, unspecified site; Mixed hyperlipidemia 07/31/2024 Telephone Internal Medicine [address] [phone] Zane Cox MD Khan: Physician Order from Last 3 Months Immunizations Name Administration Dates Next Due Hepatitis B (Qbyvsai-E-Kebzk , Recombivax HB-Adult) 19yo and older 06/12/2019,04/18/2019,10/16/2018,01/13,07/16/2013,06/10/2013 Influenza trivalent, 0.5mL ( Fluad) 65yo and older 02/19/2024,02/17/2023,03/19/2020,03/30 Influenza trivalent, 0.5mL, preservative free (Fluarix; FluLaval; Fluzone) ages 6mo and older (Afluria) 3 years and older 03/10/2021,03/22/2019,04/05/2016,03/04,03/31/2014,03/25/2012,03/16/2011 ,05/12/2008,04/09/2007,04/14/2005 MMR, measles mumps and rubel la Live (Priorix; M-M-R II) 12mo and older 04/18/2019,10/16/2018 PPD Test 01/02/2017, 5,12/03/2012,02/01,02/11/2008,08/01/2005,11/26/1999 Pfizer SARS-CoV-2 COVID-19, mRNA, LNP-S, preservative free 01/13/2022,07/09/2020,06/15/2020 [...] 3 COLONOSCOPY 05/14 PROCEDURE: HISTORICAL COLONOSCOPY; COMMENT: Gerard; R 2019 Medical History Medical History Date Comments Urinary calculus, unspecified 03/15/2006 DX :Urinary calculus, unspecified; COMMENT: Left kidney; non-obstructing Hemorrhage of gastrointestin al tract, unspecified 01/09/2007 DX:Hemorrhage of gastrointes tinal tract, unspecified; COMMENT: Yfn; 2005, Colonoscopy recommended Historical Medical DX 01/05/2010 DX:Thalass [...] your loved ones. For example, early childhood or elderly care for an older adult? [...] Due Date Last Done Comments RSV Immunization Adult Patients (1 - Risk 60-74 years 1-dose series) [...] age to complete this topic Meningococcal B Vaccine Aged Out No l onger eligible based on patient's age to complete this topic RSV Immunization Patients Under 20 months Aged Out No longer eligible based on patient's age to complete this topic Varicella Vaccines Aged Out No longer eligible based on patient's age to complete this topic Procedures Procedure Name Priority Date/Time Associated Diagnosis Comments CBC WITH AUTO DIFFERENTIAL Routine 09/23/2024 11:48 AM EDT Iron deficiency anemia, unspecified iron deficiency anemia type CBC AND DIFFERENTIAL Routine 09/23/2024 11:48 AM EDT Iron deficiency anemia, unspecified iron deficiency anemia type DEPRESSION SCREENING Routine 02/19/2024 FALLS RISK ASSESSMENT Routine 02/19/2024 LIPID PANEL Routine 02/19/2024 HEPATITIS C SCREENING Routine 12/13/2022 STOOL BASED TEST Routine 07/01/2022 from Last 3 Months or Most Recently Relevant to Health Maintenance Results * (ABNORMAL) CBC auto differential (09/23/2024 11:48 AM EDT) [facility] WBC 7.9 4.8 - 10.8 K/mcL LAB HEMETOLOGY METHOD 09/23/2024 1:52 PM EDT [facility] RBC 5.90(H) 4.50 - 5.50 M/mcL LAB [facility] Hemoglobin 13.7 13.5 - 17.5 g/dL LAB HEMETOLOGY METHOD 09/23/2024 1:52 PM EDT [facility] Hematocrit 42.5 42.0 - 54.0 % LAB [facility]OLOG[facility]24 [facility] MCV 72.6(L) 79.0 - 98.0 FL LAB HEMETOLOGY METHOD 09/23/2024 1:[facility] MCH 23.4(L) 27.0 - 32.0 pcg LAB HEMETOLOGY METHOD 09/23/2024 1:52 PM EDT [facility] MCHC 32.2 32.0 - 37.0 g/dL LAB HEMETOLOGY METHOD 09/23/2024 1:[facility] RDW 17.8(H) 11.0 - 15.0 % LAB HEMETOLOGY METHOD 09/23/2024 1:[facility] Platelets 252 130 - 400 K/mcL LAB HEMETOLOGY METHOD 09/23/2024 1:[facility] MPV 11.0 7.0 - 11.0 FL LAB HEMETOLOGY METHOD 09/23/2024 1:52 PM EDT [facility] NRBC 0.0 <1.0 % LAB HEMETOLOGY METHOD 09/23/2024 1:[address] [facility] NRBC Absolute 0.00 <0.10 K/mcL LAB HEMETOLOGY METHOD 09/23/2024 1:[facility] Neutrophils Relative 65.1 % LAB HEMETOLOGY METHOD 09/23/2024 1:[address] [facility] Lymphocytes Relative 21.8 % LAB HEMETOLOGY METHOD 09/23/2024 1:[address] [facility] Monocytes Relative 9.8 % LAB HEMETOLOGY METHOD 09/23/2024 1:[address] [facility] Eosinophils Relative 0.9 % LAB HEMETOLOGY METHOD 09/23/2024 1:[address] [facility] Basophils Relative 1.9 % LAB HEMETOLOGY METHOD 09/23/2024 1:[address] [facility] Immature Granulocytes Relative 0.5 % LAB HEMETOLOGY METHOD 09/23/2024 1:[address] [facility] Neutrophils Absolute 5.11 1.50 - 7.00 K/mcL LAB HEMETOLOGY METHOD 09/23/2024 1:52 PM EDT [facility] Lymphocytes Absolute 1.71 1.00 - 5.00 K/mcL LAB HEMETOLOGY METHOD 09/23/2024 1:52 PM EDT [facility] Monocytes Absolute 0.77 0.20 - 1.00 K/mcL LAB HEMETOLOGY METHOD 09/23/2024 1:[address] [facility] Eosinophils Absolute 0.07 0.00 - 0.50 K/mcL LAB HEMETOLOGY METHOD 09/23/2024 1:52 PM EDT [facility] Basophils Absolute 0.15 0.00 - 0.20 K/[facility] LAB HEMETOLOGY METHOD 09/23/2024 1:52 PM EDT [facility] Immature Granulocytes Absolute 0.04(H) 0.00 - 0.03 K/[facility] LAB HEMETOLOGY METHOD 09/23/2024 1:52 PM EDT [facility] Blood Venous blood specimen / Unknown Venipuncture / Unknown 09/23/2024 11:48 AM EDT 09/23/2024 11:48 AM EDT Zane Cox MD LAB BLOOD ORDERABLES Final Resul t [facility] [address] [place] [address], * Falls Risk Assessment (02/19/2024) [facility] Falls Risk Assessment Abstracted [facility] Provider HEALTH MAINTENANCE Final Result * Depression Screening (02/19/2024) [facility] Depression Screening Abstracted [facility] Provider HEALTH MAINTENANCE Final Result * Lipid panel (02/19/2024) [facility] LDL/HDL Ratio 3 0 - 4 Triglycerides 99 0 - 150 mg/dL Cholesterol 130 0 - 200 mg/dL HDL 46 >=40 mg/dL LDL Cholesterol 65 0 - 100 mg/dL Blood Venous blood specimen / Unknown Historical Provider LAB BLOOD ORDERABLES Kyra l Result * Hepatitis C Screening (12/13/2022) [facility] Hepatitis C Screening Abstracted Historical Provider HEALTH MAINTENANCE Final Result * Stool Based Tests (FOBT/FIT) (07/01/2022) [facility] Colorectal Cancer Screening: Stool Based Tests No Interpretation , Abstracted us Historical Provider HEALTH MAINTENANCE Final Result from Last 3 Months or Most Recently Relevant to Health Maintenance Insurance MEDICAID - [place] MEDICARE Care Teams Health Economist Relationship Specialty Start Date End Date Zane Cox MD [address] [place] [address] [place] [address] PCP - General 05/09/22
--- OUTSIDE RECORDS SUMMARY | 2024-10-07 10:24 | XMS_ITS ---
Author Organization [facility] Address [address] [place] [address] Care Team Providers Care Sales Representative Womens Health Name Role Phone Kenny Gastonirais Primary Care Provider Tor Warner Unavailable [phone] Allergies Allergen (clinical drug ingredient) Drug/Non Drug [...] Ordered Date Performed Result Body Sit e 08957-[id number] NAIL, 6 OR MORE 03/07/2024 N/A 21783-[id number] SKIN LESIONS, 2 TO 4 03/07/2024 N/A Encounters Encounter Location Date Provider Diagnosis [facility] [place] [address] [place] [address] [place] [phone] 03/07/2024 Tor Cruz Atherosclerosis of [place] artery of both lower extremities, with unspecified presence of clinical manifestation I70.203 ; Tinea unguium B35.1 ; Pain in right toe(s) M79.674 and Pain in left toe(s) M79.675 Assessments Encounter Date Diagnosis (ICD Code) Assessment Notes Treatment Notes Treatment Clinical Notes Section Notes 03/07/2024 Atherosclerosis of [place] artery of both lower extremities, with unspecified presence of clinical manifestation (ICD-10 - I70.203) 03/07/2024 Tinea unguium (ICD-10 - B35.1) 03/07/2024 Pain in right toe(s) (ICD-10 - M79.674) 03/07/2024 Pain in left toe(s) (ICD-10 - M79.675) Plan Of Treatment Pending Test Test Name Order Date [id number] NAIL, 6 OR MORE 03/07/2024 42033-KCZQ SKIN LESIONS, 2 TO 4 03/07/20 24 Next Appt Details Follow Up: 3 Months, Reason: Provider Name:Tor Cruz , 12/23/2024 09:00:00 AM, [address] [facility], [address], [place], [address], Procedure Notes * Category Sub-Category Detail Notes Debride Nail 6-10 Nail debridement Performance o f this nail treatment by a nonprofessional would put this patients foot and overall health at risk. Therefore, nail debridement was performed extensively to reduce/remove overall nail length, girth, thickness, subungual debris, and necrotic tissue, by manual and/or electrical means through the use of a nail nipper and/or dremel-type grinder operator tool, to a more viable healthy nail plate or bed tissue 6-10. Silver nitrate used for any petechial bleeding as necessary. Definitive antifungal treatment options have been reviewed and discussed with the patient. The patient chooses, no pharmaceutical tx - 45902 Keratoma Treatment Parring or Cutting o f Benign Hyperkeratotic Lesion(s) (-56) 2-4 Lesions - The Benign hyperkeratotic lesions, as described above were pared, and/or cut utilizing a sterile 15 blade, tissue nippers, and/or dremel - 13868 , Q8 Progress Notes * Mary Lou FINLEY EDOB: (68 yo M)Acc No.[id number]:03/07/2024 Progress Note Patient:?Cesar Finley E Provider:?Tor Cruz DPM :[id number]???Age:68 Y???Sex:Male Odin e:03/07/2024 Address:[address] [place], [place] [phone] Pcp:Azul Cox Subjective: * Chief Complaints: * [...] * Hospitalization/Major Diagno stic Procedure:?Patient went to [facility] for a neck sprain. 02/2015Urgent Care [address] [place] [address] for neck pain 05/19Urge care [facility] 11/2018[place]- [facility] 12/2022 * Family History:?Mother: dece ased, diagnosed [...] Assessment: 1.?Tinea unguium - B35.1?2.? Atherosclerosis of [place] artery of both lower extremities, with unspecified presence of clinical manifestation - I70.203?3.?Pain in right toe(s) - M79.674?4.?Pain in left toe(s) - M79.675? Plan: * Treatment: 2.?Atherosclerosis of [place] artery of both lower extremities, with unspecified presence of clinical manifestation?Procedure: [id number]-IWAH SKIN LESIONS, 2 TO 4 * Procedures:?Debride Nail 6-10:?Nail debridement?Performance of this nail treatment by a nonprofessional would put this patients foot and overall health at risk. Therefore, nail debridement was performed extensively to reduce/remove overall nail length, girth, thickness, subungual debris, and necrotic tissue, by manual and/or electrical means through the use of a nail nipper and/or dremel-type grinder operator tool, to a more viable healthy nail plate or bed tissue 6-10. Silver nitrate used for any petechial bleeding as necessary. Definitive antifungal treatment options have been reviewed and discussed with the patient. The patient chooses, no pharmaceutical tx - 26361.?Keratoma Treatment:?Parring or Cutting of Benign Hyperkeratotic Lesion(s)?(-56) 2-4 Lesions - The Benign hyperkeratotic lesions, as described above were pared, and/or cut utilizing a sterile 15 blade, tissue nippers, and/or dremel - 22423 , Q8.? * Procedure Codes:?01808 DEBRI DE NAIL, 6 OR MORE, Modifiers: XS 64732 TRIM SKIN LESIONS, 2 TO 4, Modifiers: XS , Q8 * Follow Up:?3 Months * Images: * Sign off status: Completed true * Provider:?Tor Cruz DPM Date:?2023 Generated for Hebert hawthorne/Lisa/Eleazar on:?10/07/2024 10:24 AM EDT History and Physical Notes * [...]
[2024-10-07 13:57] LABS: Alanine Aminotransferase 110 U/L (0-40); Albumin Level 3.9 g/dL (3.5-5.0); Alkaline Phosphatase 91 U/L (39-117); Anion Gap 14 (12-20); Aspartate Amino Transferase 57 U/L (5-37); Bilirubin Total 0.7 mg/dL (0.0-1.0); Blood Urea Nitrogen 26 mg/dL (9-16); Calcium 9.4 mg/dL (8.4-10.2); Carbon Dioxide 26 mmol/L (22-29); Chloride 107 mmol/L (96-108); Estimated Glomerular Filt Rate > 60; Glucose Random 61 mg/dL (60-115); Potassium 3.8 mmol/L (3.3-5.1); Sodium 143 mmol/L (135-145); Total Protein 7.8 g/dL (6.5-8.0)
[2024-10-07 14:14] LABS: Uric Acid 5.2 mg/dL (3.4-7.0)
== END 2024-10-07 09:34 | disposition home or self-care (01) ==
LOC: HO.HMGCLDS 09:33
PROVIDERS: PCP Student in an Organized Health Care Education/Training Program; Visit Provider Student in an Organized Health Care Education/Training Program
DX: M1A.00X0 Idiopathic chronic gout, unspecified site, without tophus (tophi) (principal)
CPT/HCPCS: 36415; 80053; 84550

== ENCOUNTER 2024-10-10 10:05 | Outpatient (AMB) | payer MEDICARE, MEDICAID, SELFPAY ==
--- NOTE | 2024-10-10 10:11 | MHC.OFFVIS ---
Vital Signs 10/10/24 10:19 Height 5 ft 3 in Weight 147 lb 0.773 oz BMI 26.0 Pulse 78 Pulse Source Pulse Oximeter Comment Unable to take BP Intake Visit Reasons: Gout Intake Note: Patient presents for Gout follow up. Business Operations Specialist: Business Operations Specialist Present (Debora Mariee) Accompanied by: Significant Other Allergies No Known Allergies Allergy (Verified 10/10/24 10:18) Medication List - Last Reconciled 10/10/24 by Anna Barton MD acetaminophen 650 mg (2 x 325 mg) PO QAM allopurinol 150 mg (1.5 x 100 mg) PO QAM ammonium lactate 12% 1 appl topical BID atorvastatin 10 mg PO DAILY bacitracin zinc topical clotrimazole 1% 1 appl topical QAM AND QHS colchicine (Colcrys) 0.6 mg PO DAILY PRN docusate sodium 100 mg PO BID donepezil 10 mg PO QAM 30 days ferrous sulfate 325 mg PO DAILY finasteride 5 mg PO DAILY ibuprofen 200 mg PO Q6H PRN levothyroxine 150 mcg PO DAILY melatonin 5 mg PO DAILY 30 days memantine 7 mg PO DAILY 30 days pantoprazole mg PO polyethylene glycol 3350 17 grams PO DAILY selenium sulfide 1% (Anti-Dandruff) mL topical tamsulosin 0.4 mg PO DAILY terbinafine HCl 1% appl topical BEDTIME HPI Comments Details: patient is a 69-year-old male with down syndrome, hypothyroidism, BPH, Alzheimer's dementia, non crystal proven non tophaceous gout here today for follow up Interval History: Patient last seen 04/09/[address] Zapata. At that time he was following up for his gout. He was taking allopurinol 150 mg daily and p.r.n. colchicine. Patient's nurse at that time noted he had a gout flare 5 months prior to that appointment that was treated with colchicine. Has not had any flare-ups since then. Uric acid at goal, no changes made to his allopurinol Rheumatologic History: Non crystal proven gout - First attack in August 2017 in his foot, second attack in May 2018 in his L knee - elevated UA, podagra - Allopurinol: July 2018 to present Current Rheumatology Medication(s): Allopurinol 150mg daily Colchicine 0.6mg prn PFSH Medical History Alzheimer's dementia Hypothyroidism Prediabetes Vitamin D deficiency Gastrointestinal bleed High myopia Thalassemia minor Urinary retention Cataract of both eyes Hyperlipidemia Surgical History No pertinent past surgical history Social History Household Members: Other Housing: Assisted Living Facility Alcohol intake: never Patient Tobacco Use Status: Never used Tobacco Review of Systems Const Details: Review of Systems Constitutional: Denies fever, chills, weight loss ENT: Denies vision changes, eye pain or eye redness, dental caries, dry mouth GI: Denies nausea, vomiting, diarrhea, abdominal pain, change in BM Pulm: Denies SOB, SCRUGGS, hemoptysis, wheezing Cards: Denies chest pain, palpitations Skin: Denies Raynaud's, rash, nail changes, photosensitivity, ROBOTICS TESTING TECHNICIAN: Denies headaches, weakness, paresthesias, recurrent falls MSK: as per HPI All other systems reviewed and are unremarkable except noted above Physical Exam Vital Signs: Last Vital Signs Pulse 78 10/10/24 10:19 BMI result Body Mass Index 26.0 Vital signs reviewed Physical Examination CONSTITUITIONAL patient pleasant and cooperative sitting in wheel chair MSK Hands: Able to make a fist. No synovitis noted to the MCPs, PIPs or DIPs. No tenderness to palpation of these joints. No deformities noted. Wrists: Full range of motion at the wrists without pain. No tenderness to palpation or synovitis noted to the wrists. Elbows: Full range of motion without pain. No tenderness, weakness, swelling, increased warmth or erythema. Shoulders: No tenderness, weakness, swelling, increased warmth or erythema. Knees: Full range of motion. No tenderness, swelling, increased warmth or erythema.?No effusion or crepitations Ankles: Full range of motion. No tenderness, swelling, increased warmth or erythema.? Feet: Negative squeeze test. No tenderness to palpation or swelling of the MTPs. Tender points:?No tenderness to palpation of the bilateral trapezius, supraspinatus, greater trochanters, anterior costochondral junctions, bilateral gluteal areas, bilateral suboccipital muscle insertions SKIN Skin intact without rashes. No tophi Results Reviewed Results Reviewed: Laboratory Tests 02/14/24 10/07/24 11:57 09:40 WBC 9.7 RBC 5.38 Hgb 14.3 Hct 40.5 L Plt Count 282 ESR 25 H Sodium 143 Potassium 3.8 Chloride 107 Carbon Dioxide 26 BUN 26 H Creatinine 1.10 Uric Acid 5.2 Calcium 9.4 Total Bilirubin 0.7 AST 57 H ALT 110 H Alkaline Phosphatase 91 Total Protein 7.8 Albumin 3.9 Assessment & Plan Assessment & Plan (1) Gout: Comment: Allopurinol: July 2018 to present Code(s): M10.9 - Gout, unspecified Category: Medical Qualifiers: Gout site: unspecified site Gout etiology: idiopathic Chronicity: chronic Presence of tophus: without tophus Qualified Code(s): M1A.00X0 - Idiopathic chronic gout, unspecified site, without tophus (tophi) Plan: #Non Crystal proven non tophaceous gout Patient is a 69-year-old male with down syndrome here today for follow up of his non crystal proven non tophaceous gout. Uric acid currently at goal at 5.2. We will continue his current dose of allopurinol. Colchicine p.r.n. for flare Plan - Allopurinol 150mg daily - Colchcine 0.6mg daily prn - RTC 6 months - Labs before visit: CBC, CMP, ESR, CRP, UA (2) LFT elevation: Code(s): R79.89 - Other specified abnormal findings of blood chemistry Category: Medical Plan: #Transaminitis Patient with slightly worsening transaminitis. We will get ultrasound of liver with elastography Decrease Tylenol to 500mg daily (3) Encounter for monitoring allopurinol therapy: Code(s): Z51.81 - Encounter for therapeutic drug level monitoring; Z79.899 - Other jail (current) drug therapy Plan: #Long-term Current Use of Allopurinol Risks and benefits of allopurinol discussed with patient Benefits include decreased gout flares, remission of gout and reduction of tophi Risks include allopurinol hypersensitivity syndrome which is a severe cutaneous adverse reaction associated with allopurinol use particularly in patients who are HLA B*5801 positive, increased transaminases, GI upset including diarrhea, nausea and vomiting, and other dermatologic manifestations. Plan I spent 20 minutes reviewing the record and labs, taking a history, examining the patient, discussing the treatment plan, ordering diagnostic work up and documenting in the medical record Medications: New acetaminophen (Tylenol Extra Strength) 500 mg PO DAILY 90 tabs 1RF M15.9 - Polyosteoarthritis, unspecified Refilled allopurinol 150 mg (1.5 x 100 mg) PO QAM 135 tabs 1RF M1A.00X0 - Idiopathic chronic gout, unspecified site, without tophus (tophi) Discontinued acetaminophen Discontinued Reason: Doctor's Order 650 mg (2 x 325 mg) PO QAM 60 tabs 3RF for osteoarthritis Coding Level of Care Code Est Pt Level 3 (28733) Complex EM visit Add On G2211 Diagnoses Idiopathic chronic gout without tophus, unspecified site M1A.00X0 Gout site: unspecified site Gout etiology: idiopathic Chronicity: chronic Presence of tophus: without tophus LFT elevation R79.89 Encounter for monitoring allopurinol therapy Z51.81; Z79.899
[2024-10-10 10:19] VITALS: PULSE 78; BMI 26.0
--- OUTSIDE RECORDS SUMMARY | 2024-10-10 11:13 | XMS_ITS ---
Author Organization [facility] Address [address] [place] [address] Care Team Providers Care Head Of Quality Name Role Phone Azul Cox Primary Care Provider Tor Warner Unavailable [phone] Allergies Allergen (clinical drug ingredient) Drug/Non Drug [...] Ordered Date Performed Result Body Sit e 29949-TBGUSRG NAIL, 6 OR MORE 06/17/2024 N/A 09402-ZNKQ SKIN LESIONS, 2 TO 4 06/17/2024 N/A Encounters Encounter Location Date Provider Diagnosis [facility] [address] [address] 06/17/2024 Tor Cruz Atherosclerosis of king salmon artery of both lower extremities, with unspecified presence of clinical manifestation I70.203 ; Tinea unguium B35.1 ; Pain in right toe(s) M79.674 and Pain in left toe(s) M79.675 Assessments Encounter Date Diagnosis (ICD Code) Assessment Notes Treatment Notes Treatment Clinical Notes Section Notes 06/17/2024 Atherosclerosis of king salmon artery of both lower extremities, with unspecified presence of clinical manifestation (ICD-10 - I70.203) 06/17/2024 Tinea unguium (ICD-10 - B35.1) 06/17/2024 Pain in right toe(s) (ICD-10 - M79.674) 06/17/2024 Pain in left toe(s) (ICD-10 - M79.675) Plan Of Treatment Pending Test Test Name Order Date 53444-WJQAJHY NAIL, 6 OR MORE 06/17/2024 66476-WODV SKIN LESIONS, 2 TO 4 06/17/19 25 Next Appt Details Follow Up: 3 Months, Reason: Provider Name:Tor Cruz , 12/23/2024 09:00:00 AM, [address] [facility], [address], [place], [id number], Procedure Notes * Category Sub-Category Detail Notes [...] use of a nail nipper and/or dremel-type tool and cutter grinder, to a more viable healthy nail [...] to maintain effectiveness in symptomatic relief - 52050 Keratoma Treatment Parring or Cutting o f [...] instrumentation by the physician of record - 62322, Q8 Progress Notes * Mary Lou FINLEY EDOB: (68 yo M)Acc No.[id number]:06/17/2024 Progress Note Patient:?Cesar FINLEY E Provider:?Tor Cruz DPM :1955???Age:68 Y???Sex:Male Odin e:06/17/2024 Address:[address] [place], [place] [id number] Pcp:Azul Cox Subjective: * Chief Complaints: * [...] * Hospitalization/Major Diagno stic Procedure:?Patient went to [facility] for a neck sprain. 02/2015Urgent Care [address] [place] [address] for neck pain 05/19[facility] care /[facility] in [place], fell 11/2018[facility] [place] 12/2022 * Family History:?Mother: [...] Assessment: 1.?Tinea unguium - B35.1???2 .?Atherosclerosis of king salmon artery of both lower extremities, with unspecified presence of clinical manifestation - I70.203 (Primary)???3.?Pain in right toe(s) - M79.674???4.?Pain in left toe(s) - M79.675??? Plan: * Treatment: 2.?Tinea unguium?Procedure: 19603-KBVCJOV NAIL, 6 OR MORE * Procedures:?Debride Nail [...] use of a nail nipper and/or dremel-type tool and cutter grinder, to a more viable healthy nail [...] to maintain effectiveness in symptomatic relief - 47036.?Keratoma Treatment:?Parring or Cutting of Benign Hyperkeratotic Lesion(s)?(-56) [...] instrumentation by the physician of record - 52180, Q8.? * Procedure Codes:?44739 DEBRI DE NAIL, 6 OR MORE, Modifiers: XS 81621 TRIM SKIN LESIONS, 2 TO 4, Modifiers: XS , Q8 * Follow Up:?3 Months * Images: * Sign off status: Completed true * Provider:?Tor Cruz DPM Date:?2024 Generated for Hebert hawthorne/Lisa/Eleazar on:?10/10/2024 11:13 AM EDT History and Physical Notes * [...]
--- OUTSIDE RECORDS SUMMARY | 2024-10-10 11:13 | XMS_ITS | Clinical Summary ---
Author Organization [facility] Address [address] [place] [phone] Phone Care Team Providers Care [place] Aide Name Role Phone Zane Cox MD Primary Care Provider [phone] Allergies Active Allergy Reactions Criticality Noted Date [...] Date Moderate early onset Alzheim er's dementia ([facility] V24, [facility] V28) 08/18/2023 Vitamin D deficiency 12/13/2022 Gout 08/10/2022 Prediabetes 09/01/2021 COVID-19 virus infection 06/25/2021 Benign prostatic hyperplasia 11/13/2020 Cognitive impairment 11/13/2020 Closed fracture of odontoid process of axis ([facility] V24, [facility] V28) 11/27/2018 Hyperlipidemia 08/18/2016 Cataract 12/22/2014 [...] Care Team Description 10/01/2024 Telephone Internal Medicine [address] [address] Zane Cox MD Forms: Physician Orders 09/03/2024 Telephone Internal Medicine [address] [phone] Zane Cox MD Med Refill 09/03/2024 [facility] [address] [address] Mikayla Carcamo [place] faxed order (L&C) 08/15/2024 9:00 AM EDT Office Visit Internal [address] [address] Zane Cox MD Cognitive impairment (Primary Dx); Down syndrome; Bilateral degenerative progressive high myopia; Gout, unspecified cause, unspecified chronicity, unspecified site; Mixed hyperlipidemia 07/31/2024 Telephone Internal Medicine [address] [phone] Zane Cox MD Khan: Physician Order from Last 3 Months Immunizations Name Administration Dates Next Due Hepatitis B (Mvjwrwc-P-Gftzf , Recombivax HB-Adult) 19yo and older 06/12/2019,04/18/2019,10/16/2018,01/13,07/16/2013,06/10/2013 [...] for your loved ones. For example, child support agent or elderly care for an older adult? [...] CBC auto differential (09/23/2024 11:48 AM EDT) [facility] WBC 7.9 4.8 - 10.8 K/mcL LAB HEMETOLOGY METHOD 09/23/2024 1:52 PM EDT [facility] RBC 5.90(H) 4.50 - 5.50 M/mcL LAB [facility] Hemoglobin 13.7 13.5 - 17.5 g/dL LAB HEMETOLOGY METHOD 09/23/2024 1:52 PM EDT [facility] Hematocrit 42.5 42.0 - 54.0 % LAB HEMETOLOGY METHOD 09/23[facility]2024 [facility] MCV 72.6(L) 79.0 - 98.0 FL LAB HEMETOLOGY METHOD 09/23/2024 [facility] MCH 23.4(L) 27.0 - 32.0 pcg LAB HEMETOLOGY METHOD 09/23/2024 1:52 PM EDT [facility] MCHC 32.2 32.0 - 37.0 g/dL LAB HEMETOLOGY METHOD 09/23/2024 [facility] RDW 17.8(H) 11.0 - 15.0 % LAB HEMETOLOGY METHOD 09/23/2024 [facility] Platelets 252 130 - 400 K/mcL LAB HEMETOLOGY METHOD 09/23[facility]2024 [facility] MPV 11.0 7.0 - 11.0 FL LAB HEMETOLOGY METHOD 09/23/2024 1:52 PM EDT [facility] NRBC 0.0 <1.0 % LAB HEMETOLOGY METHOD 09/23/2024 1:52 PM [facility] NRBC Absolute 0.00 <0.10 K/mcL LAB HEMETOLOGY METHOD 09/23[facility]2024 [facility] Neutrophils Relative 65.1 % LAB HEMETOLOGY METHOD 09/23/2024 1:52 PM [facility] Lymphocytes Relative 21.8 % LAB HEMETOLOGY METHOD 09/23/2024 1:52 PM [facility] Monocytes Relative 9.8 % LAB HEMETOLOGY METHOD 09/23/2024 1:52 PM [facility] Eosinophils Relative 0.9 % LAB HEMETOLOGY METHOD 09/23/2024 1:52 PM [facility] Basophils Relative 1.9 % LAB HEMETOLOGY METHOD 09/23/2024 1:52 PM [facility] Immature Granulocytes Relative 0.5 % LAB HEMETOLOGY METHOD 09/23/2024 1:52 PM [facility] Neutrophils Absolute 5.11 1.50 - 7.00 K/mcL LAB HEMETOLOGY METHOD 09/23/2024 1:52 PM EDT [facility] Lymphocytes Absolute 1.71 1.00 - 5.00 K/mcL LAB HEMETOLOGY METHOD 09/23/2024 1:52 PM EDT [facility] Monocytes Absolute 0.77 0.20 - 1.00 K/mcL LAB HEMETOLOGY METHOD 09/23/2024 1:52 PM [facility] Eosinophils Absolute 0.07 0.00 - 0.50 K/mcL LAB HEMETOLOGY METHOD 09/23/2024 1:52 PM EDT [facility] Basophils Absolute 0.15 0.00 - 0.20 K/[facility] LAB HEMETOLOGY METHOD 09/23/2024 1:52 PM EDT [facility] Immature Granulocytes Absolute 0.04(H) 0.00 - 0.03 K/[facility] LAB HEMETOLOGY METHOD 09/23/2024 1:52 PM EDT [facility] Blood Venous blood specimen / Unknown Venipuncture / Unknown 09/23/2024 11:48 AM EDT 09/23/2024 11:48 AM EDT Zane Cox MD LAB BLOOD ORDERABLES Final Resul t [facility] [address] [place] [address], * Falls Risk Assessment (02/19/2024) [facility] Falls Risk Assessment Abstracted [facility] Provider HEALTH MAINTENANCE Final Result * Depression Screening (02/19/2024) [facility] Depression Screening Abstracted [facility] Provider HEALTH MAINTENANCE Final Result * Lipid panel (02/19/2024) [facility] LDL/HDL Ratio 3 0 - 4 Triglycerides 99 0 - 150 mg/dL Cholesterol 130 0 - 200 mg/dL HDL 46 >=40 mg/dL LDL Cholesterol 65 0 - 100 mg/dL Blood Venous blood specimen / Unknown Historical Provider LAB BLOOD ORDERABLES Kyra l Result * Hepatitis C Screening (12/13/2022) [facility] Hepatitis C Screening Abstracted Historical Provider HEALTH MAINTENANCE Final Result * Stool Based Tests (FOBT/FIT) (07/01/2022) [facility] Colorectal Cancer Screening: Stool Based Tests No Interpretation , Abstracted us Historical Provider HEALTH MAINTENANCE Final Result from Last 3 Months or Most Recently Relevant to Health Maintenance Insurance MEDICAID - [place] MEDICARE Care Teams [place] Aide Relationship Specialty Start Date End Date Zane Cox MD [address] [place] [address] [place] [address] PCP - General 05/09/22
--- OUTSIDE RECORDS SUMMARY | 2024-10-10 11:13 | XMS_ITS ---
Author Organization [facility] Address [address] [place] [address] Care Team Providers Care Upholstery Bundler Name Role Phone Kenny Gastonirais Primary Care Provider Tor Warner Unavailable [phone] Allergies Allergen (clinical drug ingredient) Drug/Non Drug Allergy documented on EMR Reaction Allergy Type Onset Date Status dairy products (uncoded) Unknown Allergy Active REASON FOR VISIT At Risk Footcare, Painful Nail(s) aggrevated by shoes and causing difficulty standing/walking. Medications Medication SIG (Take, Route, Frequency, Duration) Notes Start Date End Date Status Levothyroxine Sodium 150 MCG 1 tablet in the morning on an empty stomach Orally mon-sat Active MiraLax Active ibuprofen Active Flomax Active guaiFENesin Active Bisacodyl Active Docusate Sodium Acti ve Finasteride Active Colchicine 0.6 MG 1 tablet Orally PRN Active Chlorhexidine Gluconate 0.12 % Mouth/Throat Active Bacitracin Active Atorvastatin Calcium Active Polyethylene Glycol Active Acetaminophen 325 mg prn Active Memantine HCl ER 7 MG 1 capsule Orally O nce a day Active Zyloprim Not-Taking Finasteride 5 MG 1 tablet Orally Once a day Not-Taking Suppository Base Not -Taking Tussin prn Not-Taking Fiber Not-Taking Dulcolax Not-Taking Lipitor Not-Taking Potassium Citrate ER Not-Taking Tamsulosin HCl 0.4 MG Orally once daily Not-Taking Robitussin Chest Congestion Not-Taking Selenium Sulfide Act lore Allopurinol Active Clotrimazole 1 % 1 application Externally Twice a day for 28 day(s) 07/20/2021 Active Vitamin D Active Ammonium Lactate 12 % APPLY TO AFFECTED AREA ON FEET TWICE DAILY for 30 Active Mylanta Active Social History Tobacco Use: Social History [...] nsmoker Vital Signs Height 5ft 6in in 09/23/2024 Weight 141 lbs 09/23/2024 BMI 22.76 kg/m2 09/23/2024 Procedures Procedure Date Ordered Date Performed Result Body Sit e 59248-OXPZLNO NAIL, 6 OR MORE 09/23/2024 N/A 75406-VAAX SKIN LESIONS, 2 TO 4 09/23/2024 N/A Encounters Encounter Location Date Provider Diagnosis [facility] [address] [place] [address] [address] [place] [address] 09/23/2024 Tor Cruz Atherosclerosis of algaaciq artery of both lower extremities, with unspecified presence of clinical manifestation I70.203 ; Tinea unguium B35.1 ; Pain in right toe(s) M79.674 and Pain in left toe(s) M79.675 Assessments Encounter Date Diagnosis (ICD Code) Assessment Notes Treatment Notes Treatment Clinical Notes Section Notes 09/23/2024 Atherosclerosis of algaaciq artery of both lower extremities, with unspecified presence of clinical manifestation (ICD-10 - I70.203) 09/23/2024 Tinea unguium (ICD-10 - B35.1) 09/23/2024 Pain in right toe(s) (ICD-10 - M79.674) 09/23/2024 Pain in left toe(s) (ICD-10 - M79.675) Plan Of Treatment Pending Test Test Name Order Date 76062-ATYRHMA NAIL, 6 OR MORE 09/23/2024 76719-PKOJ SKIN LESIONS, 2 TO 4 09/24/19 25 Next Appt Details Follow Up: 3 Months, Reason: Provider Name:Tor Cruz , 12/23/2024 09:00:00 AM, [address] [facility], [address], [place], [address], Procedure Notes * Category Sub-Category Detail Notes [...] T3, T4, T5, T6, T7, T8, T9 ), was performed exclusively by the physician of record to reduce/remove overall nail length, girth, thickness, subungual debris, and necrotic tissue, by manual and/or electrical means through the use of a nail nipper and/or dremel-type gear and spline grinder, to a more viable healthy nail [...] to maintain effectiveness in symptomatic relief - 07371 Keratoma Treatment Parring or Cutting o f Benign Hyperkeratotic Lesion(s) (-56) 2-4 Lesions - Due to the at risk nature of the patients medical condition as documented in the exam findings, performance of this keratoderma treatment is medically necessary as its management by an unskilled/untrained nonprofessional would put this patients foot and overall health at risk. Therefore, the benign hyperkeratotic lesions, (4) in total, locations as stated and described in the exam ( SUB MTH (s), 1,B/L, SUB MTH (s), 4 , B/L ), were pared, and/or cut utilizing a sterile 15 blade, tissue nippers, and/or power dremel instrumentation by the physician of record - 90149, Q8 Progress Notes * Mary Lou FINLEY EDOB: (69 yo M)Acc No.[id number]:09/23/2024 Progress Note Patient:?Cesar FINLEY Provider:?Tor Cruz DPM :1955???Age:69 Y???Sex:Male Odin e:09/23/2024 Address:[address] [place] [id number] Pcp:Azul Cox Subjective: * Chief Complaints: * ???At Risk FootcarePainful N ail(s) aggrevated by shoes and causing difficulty standing/walking. * HPI: ???At Risk footcare:?Pt States Last PCP Visit:?Date?08/15/2024 ?Misc?Patient accompanied by, PETROLE[employer] BLENDING PLANT OPERATOR,MELLO, who is physically present in exam room at time of visit.? * ROS:?General/Constitutional:?Nausea?denies.?Vomiting?denies.?Hunger Thirst?denies.?Loss appetite?denies.?Chills?denies.?Fatigue?denies.?Fever?denies.?Night Sweats?denies.?Unexplained weight loss?denies.?Ophthalmologic:?Blurred [...] * Hospitalization/Major Diagno stic Procedure:?Patient went to [facility] for a neck sprain. 02/2015[facility]gent Care [address] [place] [address] for neck pain 05/19Urgent care /[facility] in [place], [place] 11/2018[place] 12/2022 * Family History:?Mother: [...] bowling. ?Marital status: single. ?Occupation: unemployed. * Medications:?TakingMemantine HCl ER 7 MG Capsule Extended Release 24 Hour 1 capsule Orally Once a day Polyethylene Glycol Acetaminophen 325 mg prn Atorvastatin Calcium Bacitracin Bisacodyl Colchicine 0.6 MG Tablet 1 tablet Orally PRN Chlorhexidine Gluconate 0.12 % Solution Mouth/Throat Docusate Sodium Finasteride Flomax guaiFENesin ibuprofen Levothyroxine Sodium 150 MCG Tablet 1 tablet in the morning on an empty stomach Orally mon-sat MiraLax Mylanta Selenium Sulfide Vitamin D Ammonium Lactate 12 % Cream APPLY TO AFFECTED AREA ON FEET TWICE DAILY Allopurinol Clotrimazole 1 % Cream 1 application Externally Twice a day Taking Memantine HCl ER 7 MG Capsule Extended Release 24 Hour 1 capsule Orally Once a day Taking Polyethylene Glycol Taking Acetaminophen 325 mg prn Taking Atorvastatin Calcium Taking Bacitracin Taking Bisacodyl Taking Colchicine 0.6 MG Tablet 1 tablet Orally PRN Taking Chlorhexidine Gluconate 0.12 % Solution Mouth/Throat Taking Docusate Sodium Taking Finasteride Taking Flomax Taking guaiFENesin Taking ibuprofen Taking Levothyroxine Sodium 150 MCG Tablet 1 tablet in the morning [...] 5ft 6in, Wt:141, BMI:22.76, Shoe size: 7.5, Ht-cm: 167.64 cm, Wt-k.96 kg. * Examination: [...] Assessment: 1.?Tinea unguium - B35.1???2 .?Atherosclerosis of algaaciq artery of both lower extremities, with unspecified presence of clinical manifestation - I70.203 (Primary)???Specify :Q8???3.?Pain in right toe(s) - M79.674???4.?Pain in left toe(s) - M79.675??? Plan: * Treatment: 2.?Tinea unguium?Procedure: 84089-ZQIYGRF NAIL, 6 OR MORE * Procedures:?Debride Nail 6-10:?Nail debridement?Due to the clinical pathology outlined in the exam findings, performance of this nail treatment is medically necessary as its management by an unskilled/untrained nonprofessional would put this patients foot and overall health at risk. Therefore, debridement to affected nail(s), as described in exam ( TA, T1, T2, T3, T4, T5, T6, T7, T8, T9 ), was performed exclusively by the physician of record to reduce/remove overall nail length, girth, thickness, subungual debris, and necrotic tissue, by manual and/or electrical means through the use of a nail nipper and/or dremel-type gear and spline grinder, to a more viable healthy nail [...] to maintain effectiveness in symptomatic relief - 27467.?Keratoma Treatment:?Parring or Cutting of Benign Hyperkeratotic Lesion(s)?(-56) 2-4 Lesions - Due to the at risk nature of the patients medical condition as documented in the exam findings, performance of this keratoderma treatment is medically necessary as its management by an unskilled/untrained nonprofessional would put this patients foot and overall health at risk. Therefore, the benign hyperkeratotic lesions, (4) in total, locations as stated and described in the exam ( SUB MTH (s), 1,B/L, SUB MTH (s), 4 , B/L ), were pared, and/or cut utilizing a sterile 15 blade, tissue nippers, and/or power dremel instrumentation by the physician of record - 00012, Q8.? * Procedure Codes:?75142 DEBRI DE NAIL, 6 OR MORE, Modifiers: XS 48053 TRIM SKIN LESIONS, 2 TO 4, Modifiers: XS , Q8 * Follow Up:?3 Months * Images: * Sign off status: Completed true * Provider:?Tor Cruz DPM Date:?2024 Generated for Hebert hawthorne/Lisa/Eleazar on:?10/10/2024 11:13 AM EDT History and Physical Notes * HPI (History of Present Illness) Category Sub-Category Detail Notes Category Not es At Risk footcare Pt States Last PCP Visit: Date: 5 [facility] Patient accompanied by, MELLO CAMARGO, who is physically present in exam room at time of visit Examination Category Sub-Category Detail Notes Category Not [...]
--- OUTSIDE RECORDS SUMMARY | 2024-10-10 11:13 | XMS_ITS | Encounter Summary ---
Author Organization [facility] Address [address] [place] [address] Care Team Providers Care Global Sourcing Manager Name Role Phone Zane Cox MD Primary Care Provider [phone] Reason for Visit * Reason Onset Date Comments Forms: Physician Orders 10/01/2024 Encounter Details Date Type Department Care Team ([facility] st Contact Info) Description 10/01/2024 Telephone Internal Medicine - [place] [address] [facility] [address] [place] [phone] Zane Cox MD [address] [address] Forms: Physician Orders Social History Tobacco Use [...] your loved ones. For example, child development assistant or elderly care for an older adult? [...] up physician orders at the front desk admin. * Caitlyn Samuel MA - 10/02/2024 7:59 AM EDT Orders are in dr coreen peterson for signature. * Mikayla Carcamo MA - 10/02/2024 7:53 AM EDT PCP orders for Medication. Given to lead RISHABH * Stuart Meredith - 10/01/2024 9:00 AM EDT Physician orders dropped off Call [phone] or [phone] When completed for pickup. documented in this encounter Plan of Treatment Not on file documented as of this encounter Visit Diagnoses Not on filedocumented in this encounter Additional Health Concerns Assessment Noted Time PHQ-9 Depression Total Score: 0 08/15/19 25 1:15 PM EDT documented as of this encounter Care Teams Global Sourcing Manager Relationship Specialty Start Date End Date Zane Cox MD [address] [place] [address] PCP - General 05/09/22 documented as of this encounter
--- OUTSIDE RECORDS SUMMARY | 2024-10-10 11:13 | XMS_ITS ---
Author Organization [facility] Address [address] [place] [address] Care Team Providers Care Crushing Machine Operator Name Role Phone Kenny Gastonirais Primary Care Provider Tor Warner Unavailable [phone] Allergies Allergen (clinical drug ingredient) Drug/Non Drug [...] Ordered Date Performed Result Body Sit e 75271-WTBVPTZ NAIL, 6 OR MORE 03/07/2024 N/A 95320-MTGY SKIN LESIONS, 2 TO 4 03/07/2024 N/A Encounters Encounter Location Date Provider Diagnosis [facility] [place] [address] [place] [address] [place] [phone] 03/07/2024 Tor Cruz Atherosclerosis of [place]iut artery of both lower extremities, with unspecified presence of clinical manifestation I70.203 ; Tinea unguium B35.1 ; Pain in right toe(s) M79.674 and Pain in left toe(s) M79.675 Assessments Encounter Date Diagnosis (ICD Code) Assessment Notes Treatment Notes Treatment Clinical Notes Section Notes 03/07/2024 Atherosclerosis of [place]armiut artery of both lower extremities, with unspecified presence of clinical manifestation (ICD-10 - I70.203) 03/07/2024 Tinea unguium (ICD-10 - B35.1) 03/07/2024 Pain in right toe(s) (ICD-10 - M79.674) 03/07/2024 Pain in left toe(s) (ICD-10 - M79.675) Plan Of Treatment Pending Test Test Name Order Date 91459-ZYNRYEY NAIL, 6 OR MORE 03/07/2024 61352-IUFQ SKIN LESIONS, 2 TO 4 03/07/20 24 Next Appt Details Follow Up: 3 Months, Reason: Provider Name:Tor Cruz , 12/23/2024 09:00:00 AM, [address] [facility], [address], [place], [address], Procedure Notes * Category Sub-Category Detail Notes Debride Nail 6-10 Nail debridement Performance o f this nail treatment by a nonprofessional would put this patients foot and overall health at risk. Therefore, nail debridement was performed extensively to reduce/remove overall nail length, girth, thickness, subungual debris, and necrotic tissue, by manual and/or electrical means through the use of a nail nipper and/or dremel-type external grinder tender, to a more viable healthy nail plate or bed tissue 6-10. Silver nitrate used for any petechial bleeding as necessary. Definitive antifungal treatment options have been reviewed and discussed with the patient. The patient chooses, no pharmaceutical tx - 08928 Keratoma Treatment Parring or Cutting o f Benign Hyperkeratotic Lesion(s) (-56) 2-4 Lesions - The Benign hyperkeratotic lesions, as described above were pared, and/or cut utilizing a sterile 15 blade, tissue nippers, and/or dremel - 88819 , Q8 Progress Notes * Mary Lou FINLEY EDOB: (68 yo M)Acc No.[id number]:03/07/2024 Progress Note Patient:?Cesar Finley E Provider:?Tor Cruz DPM :1955???Age:68 Y???Sex:Male Odin e:03/07/2024 Address:[address] [place], [place] [phone] Pcp:Azul Cox Subjective: * Chief Complaints: * [...] * Hospitalization/Major Diagno stic Procedure:?Patient went to [facility] for a neck sprain. 02/2015Urgent Care [address] [place] [address] for neck pain 05/19Urge care /[facility] 11/2018[place] 12/2022 * Family History:?Mother: dece ased, [...] Assessment: 1.?Tinea unguium - B35.1?2.? Atherosclerosis of [place] artery of both lower extremities, with unspecified presence of clinical manifestation - I70.203?3.?Pain in right toe(s) - M79.674?4.?Pain in left toe(s) - M79.675? Plan: * Treatment: 2.?Atherosclerosis of or[place]ararmiut artery of both lower extremities, with unspecified presence of clinical manifestation?Procedure: 90769-JXMW SKIN LESIONS, 2 TO 4 * Procedures:?Debride Nail 6-10:?Nail debridement?Performance of this nail treatment by a nonprofessional would put this patients foot and overall health at risk. Therefore, nail debridement was performed extensively to reduce/remove overall nail length, girth, thickness, subungual debris, and necrotic tissue, by manual and/or electrical means through the use of a nail nipper and/or dremel-type external grinder tender, to a more viable healthy nail plate or bed tissue 6-10. Silver nitrate used for any petechial bleeding as necessary. Definitive antifungal treatment options have been reviewed and discussed with the patient. The patient chooses, no pharmaceutical tx - 24339.?Keratoma Treatment:?Parring or Cutting of Benign Hyperkeratotic Lesion(s)?(-56) 2-4 Lesions - The Benign hyperkeratotic lesions, as described above were pared, and/or cut utilizing a sterile 15 blade, tissue nippers, and/or dremel - 19985 , Q8.? * Procedure Codes:?13726 DEBRI DE NAIL, 6 OR MORE, Modifiers: XS 98951 TRIM SKIN LESIONS, 2 TO 4, Modifiers: XS , Q8 * Follow Up:?3 Months * Images: * Sign off status: Completed true * Provider:?Tor Cruz DPM Date:?2023 Generated for Hebert hawthorne/Lisa/Eleazar on:?10/10/2024 11:12 AM EDT History and Physical Notes * [...]
--- OUTSIDE RECORDS SUMMARY | 2024-10-10 11:13 | XMS_ITS | Patient Health Record ---
[facility] Organization [facility] Address [address] [place] [address] Care Team Providers Care [place] [employer] Name Role Phone Cox, Gastonirais Primary Care Provider Tor Warner Unavailable [phone] Allergies Allergen (clinical drug ingredient) Drug/Non Drug Allergy documented on EMR Reaction Allergy Type Onset Date Status dairy products (uncoded) Unknown Allergy Active Reason For Referral No Information Medications Medication SIG (Take, Route, Frequency, Duration) Notes Start Date End Date Status Allopurinol Active Clotrimazole 1 % 1 application Externally Twice a day for 28 day(s) 07/20/2021 Active Vitamin D Active Ammonium Lactate 12 % APPLY TO AFFECTED AREA ON FEET TWICE DAILY for 30 Active Polyethylene Glycol Active Acetaminophen 325 mg prn Active Tamsulosin HCl 0.4 MG Orally once daily Not-Taking Memantine HCl ER 7 MG 1 capsule Orally O nce a day Active Robitussin Chest Congestion Not-Taking Mylanta Active Selenium Sulfide Act lore Levothyroxine Sodium 150 MCG 1 tablet in the morning on an empty stomach Orally mon-sat Active MiraLax Active Docusate Sodium Acti ve Suppository Base Not -Taking Finasteride Active Colchicine 0.6 MG 1 tablet Orally PRN Active Tussin prn Not-Taking Chlorhexidine Gluconate 0.12 % Mouth/Throat Active Fiber Not-Taking ibuprofen Active Flomax Active guaiFENesin Active Dulcolax Not-Taking Bacitracin Active Zyloprim Not-Taking Bisacodyl Active Finasteride 5 MG 1 tablet Orally Once a day Not-Taking Lipitor Not-Taking Atorvastatin Calcium Active Potassium Citrate ER Not-Taking Immunizations Vaccine Route Administration Date Status Comme [...] W/U Status Risk Notes Problem Atherosclerosis of [place] arteries of the extremities ([id number]) Atherosclerosis of [place] artery of both lower extremities, with unspecified presence of clinical manifestation (I70.203) Active confirmed Vital Signs Blood pressure diastolic 63 mm Hg 06/17/2024 Height 5ft 6in in 09/23/2024 Blood pressure systolic 129 mm Hg 06/17/2024 Weight 141 lbs 09/23/2024 BMI 22.76 kg/m2 09/23/2024 Procedures Procedure Date Ordered Date Performed Result Body Sit e 48112-ZKPYLYL NAIL, 6 OR MORE 12/14/2023 N/A 41609-CJER SKIN LESIONS, 2 TO 4 12/14/2023 N/A 80232-BNOVSXM NAIL, 6 OR MORE 03/07/2024 N/A 55945-ZBAE SKIN LESIONS, 2 TO 4 03/07/2024 N/A 98839-YBJCEFW NAIL, 6 OR MORE 06/17/2024 N/A 04942-JIMC SKIN LESIONS, 2 TO 4 06/17/2024 N/A 80831-PJFARNN NAIL, 6 OR MORE 09/23/2024 N/A 58214-RETH SKIN LESIONS, 2 TO 4 09/23/2024 N/A Encounters Encounter Location Date Provider Diagnosis [address] [address] 12/14/2023 Tor Cruz Atherosclerosis of [place] artery of both lower extremities, with unspecified presence of clinical manifestation I70.203 ; Tinea unguium B35.1 ; Pain in right toe(s) M79.674 and Pain in left toe(s) M79.[address] [address] 03/07/2024 Tor Cruz Atherosclerosis of [place] artery of both lower extremities, with unspecified presence of clinical manifestation I70.203 ; Tinea unguium B35.1 ; Pain in right toe(s) M79.674 and Pain in left toe(s) M79.675 [facility] [address] [address] 06/17/2024 Tor Cruz Atherosclerosis of [place] artery of both lower extremities, with unspecified presence of clinical manifestation I70.203 ; Tinea unguium B35.1 ; Pain in right toe(s) M79.674 and Pain in left toe(s) M79.675 [facility] [address] [place] [id number] 09/23/2024 Tor Cruz Atherosclerosis of [place] artery of both lower extremities, with unspecified presence of clinical manifestation I70.203 ; Tinea unguium B35.1 ; Pain in right toe(s) M79.674 and Pain in left toe(s) M79.675 Assessments Encounter Date Diagnosis (ICD Code) Assessment Notes Treatment Notes Treatment Clinical Notes Section Notes 12/14/2023 Tinea unguium (ICD-10 - B35.1) 12/14/2023 Atherosclerosis of [place] artery of both lower extremities, with unspecified presence of clinical manifestation (ICD-10 - I70.203) 03/07/2024 Tinea unguium (ICD-10 - B35.1) 03/07/2024 Atherosclerosis of [place] artery of both lower extremities, with unspecified presence of clinical manifestation (ICD-10 - I70.203) 06/17/2024 Tinea unguium (ICD-10 - B35.1) 06/17/2024 Atherosclerosis of [place] artery of both lower extremities, with unspecified presence of clinical manifestation (ICD-10 - I70.203) 09/23/2024 Tinea unguium (ICD-10 - B35.1) 09/23/2024 Atherosclerosis of [place] artery of both lower extremities, with unspecified presence of clinical manifestation (ICD-10 - I70.203) 09/23/2024 Pain in right toe(s) (ICD-10 - M79.674) 03/07/2024 Pain in right toe(s) (ICD-10 - M79.674) 06/17/2024 Pain in right toe(s) (ICD-10 - M79.674) 12/14/2023 Pain in right toe(s) (ICD-10 - M79.674) 12/14/2023 Pain in left toe(s) (ICD-10 - M79.675) 06/17/2024 Pain in left toe(s) (ICD-10 - M79.675) 03/07/2024 Pain in left toe(s) (ICD-10 - M79.675) 09/23/2024 Pain in left toe(s) (ICD-10 - M79.675) Plan Of Treatment Pending Test Test Name Order Date 53652-KUIAIID NAIL, 6 OR MORE 05/12/2011 98043-SKYIDUA NAIL, 6 OR MORE 10/17/2011 42026-QMDVFRD NAIL, 6 OR MORE 04/30/2012 68668-FYTVPSJ NAIL, 6 OR MORE 10/17/2012 67590-LSUSGTV NAIL, 6 OR MORE 02/07/2013 44728-ESUKEMU NAIL, 6 OR MORE 05/09/2013 72555-RKXBCGO NAIL, 6 OR MORE 08/08/2013 05363-SUHZXKH NAIL, 6 OR MORE 03/06/2014 69015-EJFLMKD NAIL, 6 OR MORE 06/11/2014 87939-HBNWNKM NAIL, 6 OR MORE 09/03/2014 24842-SSJHBTV NAIL, 6 OR MORE 12/10/2014 83749-ANYBNCR NAIL, 6 OR MORE 09/02/2015 61573-QLHFMMH NAIL, 6 OR MORE 11/25/2015 81501-XHGSUFB NAIL, 6 OR MORE 02/25/2016 70323-QSKIVHJ NAIL, 6 OR MORE 12/28/2016 47328-CKASURY NAIL, 6 OR MORE 03/29/2017 33430-GJGJSWU NAIL, 6 OR MORE 06/28/2017 14874-CJZGESL NAIL, 6 OR MORE 10/04/2017 51903-RYCLGLQ NAIL, 6 OR MORE 08/01/2018 35330-AYLOEKL NAIL, 6 OR MORE 10/24/2018 41470-ZOPRUGB NAIL, 6 OR MORE 01/17/2019 31496-VLXWDVV NAIL, 6 OR MORE 04/18/2019 58846-WZNBSDV NAIL, 6 OR MORE 08/05/2019 19063-COUPUOW NAIL, 6 OR MORE 03/05/2020 91649-HKCLSRE NAIL, 6 OR MORE 08/20/2020 63417-YJGAETC NAIL, 6 OR MORE 11/19/2020 93596-WVSKJTC NAIL, 6 OR MORE 02/25/2021 63403-PHIYKJZ NAIL, 6 OR MORE 05/06/2021 87252-EYETUPN NAIL, 6 OR MORE 07/29/2021 29125-PSMKCBR NAIL, 6 OR MORE 02/23/2022 63763-NMVSTAB NAIL, 6 OR MORE 05/11/2022 75669-LJNQLIW NAIL, 6 OR MORE 08/17/2022 76225-ZZVABKC NAIL, 6 OR MORE 11/30/2022 78750-ZJSMCHU NAIL, 6 OR MORE 03/27/2023 59259-IJLMSNT NAIL, 6 OR MORE 06/08/2023 35786-ETMDTAD NAIL, 6 OR MORE 09/07/2023 17800-RBGPJAX NAIL, 6 OR MORE 12/14/2023 99846-GSDVSIO NAIL, 6 OR MORE 03/07/2024 03070-QHRXMCE NAIL, 6 OR MORE 06/17/2024 03592-RQNJPLV NAIL, 6 OR MORE 09/23/2024 45467-WVIINXD NAIL, 6 OR MORE 02/21/2018 48784-NLMSYLC NAIL, 6 OR MORE 06/10/2015 23488-EWDQXTS NAIL, 6 OR MORE 03/04/2015 04150-XUYYKYR NAIL, 6 OR MORE 12/05/2013 59532-RZFDNRV NAIL, 6 OR MORE 08/01/2012 45700-IQTSZHR NAIL, 6 OR MORE 02/20/2012 90816-YECFZOX NAIL, 6 OR MORE 02/10/2011 68529-YDFRJRE NAIL, 6 OR MORE 01/12/2023 37378-GFBXBIV NAIL, 6 OR MORE 12/15/2021 83522-IARYXIE NAIL, 6 OR MORE 10/07/2021 71881-FZYKXDQ NAIL, 6 OR MORE 09/28/2016 81141-NODMOIR NAIL, 6 OR MORE 06/29/2016 90595-Jqsx Destruction, 1-14 06/29/2016 19836-Pefq Destruction, -14 09/28/2016 96443-Arqo Destruction, 1-14 10/07/2021 35856-Kurr Destruction, 06-1812/15/2021 70917-Cond Destruction, 06-1802/21/2018 52925-Qyuf Destruction, 06-1806/29/2022 51827-Gvwb Destruction, 06-1802/20/2012 37986-Vges Destruction, 06-1802/10/2011 03263-Xpeu Destruction, 06-1808/01/2012 03301-Achf Destruction, 06-1812/05/2013 45053-Hwvd Destruction, 06-1803/04/2015 62695-Wzzl Destruction, 06-1806/10/2015 32224-Sbae Destruction, 06-1811/30/2022 13419-Opdq Destruction, 06-1805/12/2011 86775-Ztbm Destruction, 06-1810/12/2022 06466-Fawg Destruction, 06-1808/17/2022 47146-Hbrn Destruction, 06-1805/11/2022 33125-Awfo Destruction, 06-1802/23/2022 69475-Zlbl Destruction, 06-1807/29/2021 99912-Rkvr Destruction, 06-1805/06/2021 87997-Mqhz Destruction, 06-1802/25/2021 08270-Dhhf Destruction, 06-1811/19/2020 09151-Yyia Destruction, 06-1808/20/2020 05753-Ymyb Destruction, 06-1803/05/2020 58208-Osuf Destruction, 06-1808/05/2019 31957-Jsgn Destruction, 06-1804/18/2019 87316-Zuyh Destruction, 06-1801/17/2019 85370-Gchx Destruction, 06-1810/24/2018 10028-Aozk Destruction, 06-1808/01/2018 51485-Lglb Destruction, 06-1810/04/2017 71459-Aumu Destruction, 06-1806/28/2017 04845-Sxgd Destruction, 06-1803/29/2017 92435-Lzdw Destruction, 06-1802/25/2016 36532-Yhlu Destruction, 06-1812/28/2016 48223-Tavb Destruction, 06-1811/25/2015 70685-Dgpr Destruction, 06-1809/02/2015 88487-Elha Destruction, 06-1812/10/2014 36979-Bhxs Destruction, 06-1809/03/2014 69228-Slvg Destruction, 06-1806/11/2014 19508-Gumx Destruction, 06-1803/06/2014 50989-Ndrf Destruction, 06-1808/08/2013 70183-Gmjh Destruction, 06-1805/09/2013 85742-Jqug Destruction, 06-1802/07/2013 26169-Kpvm Destruction, 06-1810/17/2012 72430-Wcpp Destruction, 06-1804/30/2012 61189-Yvwu Destruction, 06-1810/17/2011 37680-HCXZ SKIN LESIONS, 2 TO 4 08/18/19 23 15253-PNTH SKIN LESIONS, 2 TO 4 12/01/19 23 39440-LDDJ SKIN LESIONS, 2 TO 4 09/24/19 25 15129-UQZY SKIN LESIONS, 2 TO 4 06/17/19 25 95324-UHKC SKIN LESIONS, 2 TO 4 03/07/20 24 87374-CYDS SKIN LESIONS, 2 TO 4 12/14/19 24 96119-CNQI SKIN LESIONS, 2 TO 4 09/07/19 24 70799-XOQH SKIN LESIONS, 2 TO 4 06/08/19 24 02237-VJSA SKIN LESIONS, 2 TO 4 03/27/20 23 80543-QPCC SKIN LESIONS, 2 TO 4 01/13/20 23 Next Appt Details Provider Name:Tor Cruz , 12/23/2024 09:00:00 AM, [address] [facility] [address], [place], [address], Insurance Providers Payer Name Payer Address Payer Phone Subscriber Number Group Number Insured Name Patient Relationship to Insured Coverage Start Date Coverage End Date Medicare [employer] [address] [place] [address] [id number] Mary Lou Patino Self - patient is the insured 7 Medical (General) History Medical History History ICD Code Down's syndrome thalassemia minor hyperthyroidism thyroid disorder Lactose intolerance Alzheimers disease Surgical History Surgery Date(Month/Year) Hospitalization History Reason Date(Month/Year) Wing- fell 12/2022 Urgent care / [facility] in [facility] 11/2018 Urgent Care [address] [facility] for neck p ain 05/19 Patient went to [facility] for a neck spra in. 02/2015
== END 2024-10-10 10:48 | disposition home or self-care (01) ==
LOC: HO.RHE 10:05
PROVIDERS: PCP Student in an Organized Health Care Education/Training Program; Visit Provider Student in an Organized Health Care Education/Training Program
DX: M1A.00X0 Idiopathic chronic gout, unspecified site, without tophus (tophi) (principal); R79.89 Other specified abnormal findings of blood chemistry; Z51.81 Encounter for therapeutic drug level monitoring; Z79.899 Other long term (current) drug therapy
CPT/HCPCS: 99213; G2211

== ENCOUNTER → 2024-10-10 10:05 | Outpatient (BNVA) | payer MEDICARE, MEDICAID, SELFPAY | PROVIDERS: PCP Student in an Organized Health Care Education/Training Program; Visit Provider Student in an Organized Health Care Education/Training Program | DX: M1A.00X0 Idiopathic chronic gout, unspecified site, without tophus (tophi) (principal); R79.89 Other specified abnormal findings of blood chemistry; Z51.81 Encounter for therapeutic drug level monitoring; Z79.899 Other long term (current) drug therapy | CPT/HCPCS: 99212 ==

== ENCOUNTER 2025-02-05 09:25 | Outpatient (REF) | payer MEDICARE, MEDICAID, SELFPAY ==
--- OUTSIDE RECORDS SUMMARY | 2025-02-01 15:47 | XMS_ITS | Continuity of Care Document ---
Author Organization [facility] ter Address [address] [place] [id number]- Care Team Providers Care Film Examiner Name Role Phone Kenny SAAB, [facility] Primary Care Phys[id number] Date(s): 02/01/25 - 02/01/[address] [address]- Discharge Disposition: A-D/C Home Attending Physician: Theresa Valenzuela MD Admitting Physician: Theresa Valenzuela MD Referring Physician: Not on Staff, Referring MD Encounter Type: Disch ES Allergies, Adverse Reactions, Alerts No Known Medication Allergies Substance Criticality Severity Reaction Reaction Severity Status Lactose Active Medications allopurinol 100 mg oral tablet 100 mg, 1, tablet, By Mouth, Daily, # 30 tablet, Refills 0, Maintenance, 11/24/18 9:09:31 AM EDT Start Date: 11/24/18 Status: Ordered Medication Dispense Status: Completed Quantity: 30.0 Unit: tablet Total Allowed Fills: 1 Fills Dispensed: 0 Ammonium Lactate 12% Topical 1 application, Topically, 2 times a day, 0 Refills, Maintenance, 03/24/11 2:22:31 PM EDT, Cream Start Date: 03/24/11 Status: Ordered Medication Dispense Status: Completed Total Allowed Fills: 1 Fills Dispensed: 0 bacitracin topical 500 u/gm ointment 1 applicator, Topically, Daily, 0 Refills, Maintenance, 11/24/18 9:14:16 AM EDT Start Date: 11/24/18 Status: Ordered Medication Dispense Status: Completed Total Allowed Fills: 1 Fills Dispensed: 0 cervical collar cervical collar, See Instructions, # 1 units, Refills 0, Tot. Refills 0, Maintenance, aspen collar 1 collar with replacement pads, 12/27/18 2:54:55 PM EDT, Compound Start Date: 12/27/18 Status: Ordered Medication Dispense Status: Completed Quantity: 1.0 Unit: Units Total Allowed Fills: 1 Fills Dispensed: 0 chlorhexidine topical 0.12% liquid 15 mL = 0.018 Gm, By Mouth, 2 times a day, 0 Refills, Maintenance, 03/24/11 2:20:54 PM EDT Start Date: 03/24/11 Status: Ordered Medication Dispense Status: Completed Total Allowed Fills: 1 Fills Dispensed: 0 Colace sodium 100 mg oral capsule 100 mg, 1, capsule, By Mouth, 2 times a day, PRN, # 20 capsule, Refills 0, Maintenance, for constipation, 11/24/18 9:06:30 AM EDT Start Date: 11/24/18 Status: Ordered Medication Dispense Status: Completed Quantity: 20.0 Unit: capsule Total Allowed Fills: 1 Fills Dispensed: 0 docusate sodium 0 Refills, Maintenance, 03/24/11 2:20:40 PM EDT Start Date: 03/24/11 Status: Ordered Medication Dispense Status: Completed Total Allowed Fills: 1 Fills Dispensed: 0 Dulcolax 10 mg rectal suppository 1 supp = 10 mg, Rectally, Daily, PRN for constipation, # 10 supp, 0 Refills, Maintenance, 11/24/18 9:10:14 AM EDT, Suppository Start Date: 11/24/18 Status: Ordered Medication Dispense Status: Completed Quantity: 10.0 Unit: supp Total Allowed Fills: 1 Fills Dispensed: 0 Flomax 0.4 mg oral capsule 0.4 mg, 1, capsule, By Mouth, Daily, # 30 capsule, Refills 0, Maintenance, 07/22/19 11:04:00 AM EST Start Date: 07/22/19 Status: Ordered Medication Dispense Status: Completed Quantity: 30.0 Unit: capsule Total Allowed Fills: 1 Fills Dispensed: 0 Lac-Hydrin 12% cream 1 application, Topically, 2 times a day, # 140 Gm, 0 Refills, Maintenance, 11/24/18 9:09:49 AM EDT, Cream Start Date: 11/24/18 Status: Ordered Medication Dispense Status: Completed Quantity: 140.0 Unit: g Total Allowed Fills: 1 Fills Dispensed: 0 LamISIL AT 1% topical cream 1 application, Topically, 2 times a day, # 30 Gm, 0 Refills, Maintenance, 11/24/18 9:09:16 AM EDT, Cream Start Date: 11/24/18 Status: Ordered Medication Dispense Status: Completed Quantity: 30.0 Unit: g Total Allowed Fills: 1 Fills Dispensed: 0 Levothyroxine Daily, 0 Refills, Maintenance, 03/24/11 2:21:39 PM EDT Start Date: 03/24/11 Status: Ordered Medication Dispense Status: Completed Total Allowed Fills: 1 Fills Dispensed: 0 levothyroxine 0.1 mg oral tablet 1 tablet = 100 mcg, By Mouth, Daily, # 30 tablet, 0 Refills, Maintenance, 11/24/18 9:06:52 AM EDT, Tablet Start Date: 11/24/18 Status: Ordered Medication Dispense Status: Completed Quantity: 30.0 Unit: tablet Total Allowed Fills: 1 Fills Dispensed: 0 Lipitor 10 mg oral tablet 1 tablet = 10 mg, By Mouth, Daily, # 30 tablet, 0 Refills, Maintenance, 07/22/19 11:04:00 AM EST Start Date: 07/22/19 Status: Ordered Medication Dispense Status: Completed Quantity: 30.0 Unit: tablet Total Allowed Fills: 1 Fills Dispensed: 0 Lipitor 10 mg oral tablet 1 tablet = 10 mg, By Mouth, Daily, # 30 tablet, 0 Refills, Maintenance Start Date: 11/24/18 Status: Ordered Medication Dispense Status: Completed Quantity: 30.0 Unit: tablet Total Allowed Fills: 1 Fills Dispensed: 0 Loprox 0.77% gel 1 applicator, Topically, 2 times a day, 0 Refills, Maintenance, 03/24/11 2:22:05 PM EDT Start Date: 03/24/11 Status: Ordered Medication Dispense Status: Completed Total Allowed Fills: 1 Fills Dispensed: 0 methylcellulose 2 gm/19 gm oral powder for reconstitution = 2 Gm, By Mouth, 3 times a day, 0 Refills, Maintenance, 03/24/11 2:21:12 PM EDT Start Date: 03/24/11 Status: Ordered Medication Dispense Status: Completed Total Allowed Fills: 1 Fills Dispensed: 0 MiraLax oral powder for reconstitution = 17 Gm, By Mouth, Daily, dissolve in water before taking, # 255 Gm, 0 Refills, Maintenance, 11/24/18 9:07:42 AM EDT, REC Powder Start Date: 11/24/18 Status: Ordered Medication Dispense Status: Completed Quantity: 255.0 Unit: g Total Allowed Fills: 1 Fills Dispensed: 0 Motrin IB 200 mg oral tablet 2 tablet = 400 mg, By Mouth, Every 8 hours, PRN for pain, # 120 tablet, 0 Refills, Maintenance, 11/24/18 9:10:36 AM EDT, Tablet Start Date: 11/24/18 Status: Ordered Medication Dispense Status: Completed Quantity: 120.0 Unit: tablet Total Allowed Fills: 1 Fills Dispensed: 0 Mylanta Liquid 15 mL, By Mouth, Every 4 hours, PRN as needed for indigestion, 0 Refills, Maintenance, 11/24/18 9:12:24 AM EDT Start Date: 11/24/18 Status: Ordered Medication Dispense Status: Completed Total Allowed Fills: 1 Fills Dispensed: 0 Mylanta Liquid By Mouth, 3 times a day after meals and bedtime, 0 Refills, Maintenance, 03/24/11 2:21:25 PM EDT Start Date: 03/24/11 Status: Ordered Medication Dispense Status: Completed Total Allowed Fills: 1 Fills Dispensed: 0 Peridex 0.12% Liquid 15 mL, Swish and Spit, Daily, 0 Refills, Maintenance, Oral Rinse Start Date: 11/24/18 Status: Ordered Medication Dispense Status: Completed Total Allowed Fills: 1 Fills Dispensed: 0 potassium citrate 10 mEq oral tablet 2 tablet = 20 mEq, By Mouth, 2 times a day, # 180 tablet, 0 Refills, Maintenance, 11/24/18 9:07:20 AM EDT, ER Tablet Start Date: 11/24/18 Status: Ordered Medication Dispense Status: Completed Quantity: 180.0 Unit: tablet Total Allowed Fills: 1 Fills Dispensed: 0 Proscar 5 mg oral tablet 1 tablet = 5 mg, By Mouth, Daily, # 30 tablet, 0 Refills, Maintenance, 07/22/19 11:05:00 AM EST, Tablet Start Date: 07/22/19 Status: Ordered Medication Dispense Status: Completed Quantity: 30.0 Unit: tablet Total Allowed Fills: 1 Fills Dispensed: 0 Proscar 5 mg oral tablet 1 tablet = 5 mg, By Mouth, Daily, # 90 tablet, 0 Refills, Maintenance, 11/24/18 9:08:54 AM EDT, Tablet Start Date: 11/24/18 Status: Ordered Medication Dispense Status: Completed Quantity: 90.0 Unit: tablet Total Allowed Fills: 1 Fills Dispensed: 0 Robitussin AC Liquid 10 mL, By Mouth, Every 4 hours, PRN Cough, 0 Refills, Maintenance, 11/24/18 9:11:02 AM EDT, Syrup Start Date: 11/24/18 Status: Ordered Medication Dispense Status: Completed Total Allowed Fills: 1 Fills Dispensed: 0 Robitussin Cough & Allergy By Mouth, Every 4 hours, 0 Refills, Maintenance, 03/24/11 2:22:23 PM EDT Start Date: 03/24/11 Status: Ordered Medication Dispense Status: Completed Total Allowed Fills: 1 Fills Dispensed: 0 selenium sulfide 2.25% topical shampoo 1 applicator, Topically, Every 21 days, 0 Refills, Maintenance, 11/24/18 9:08:25 AM EDT Start Date: 11/24/18 Status: Ordered Medication Dispense Status: Completed Total Allowed Fills: 1 Fills Dispensed: 0 tamsulosin 0.4 mg oral capsule 0.4 mg, 1, capsule, By Mouth, Daily, # 30 capsule, Refills 0, Maintenance, 11/24/18 9:07:53 AM EDT Start Date: 11/24/18 Status: Ordered Medication Dispense Status: Completed Quantity: 30.0 Unit: capsule Total Allowed Fills: 1 Fills Dispensed: 0 Tylenol 325 mg oral capsule 2 capsule = 650 mg, By Mouth, Every 4 hours, PRN as needed for pain, # 20 capsule, 0 Refills, Maintenance, 11/24/18 9:12:03 AM EDT, Capsule Start Date: 11/24/18 Status: Ordered Medication Dispense Status: Completed Quantity: 20.0 Unit: capsule Total Allowed Fills: 1 Fills Dispensed: 0 Tylenol Caplet By Mouth, 0 Refills, Maintenance, 03/24/11 2:21:48 PM EDT Start Date: 03/24/11 Status: Ordered Medication Dispense Status: Completed Total Allowed Fills: 1 Fills Dispensed: 0 Results Radiology Reports * Exam Date Time Procedure Performing Provider Status 02/01/25 10:[address] Cervical Spine W/O Contrast Auth (Verified) Notes: (CT Cervical Spine W/O Contrast) Reason For Exam: Neck trauma, dangerous injury mechanism;Other: RESULT: CT Cervical Spine W/O Contrast CT of the head and cervical spine dated February 01, 2025. Comparison films are from January 16, 2025. HISTORY: Pain secondary to trauma. FINDINGS: CT of the head was performed with multislice acquisition from the foramen magnum to the vertex. No intravenous contrast material was utilized. Axial, coronal, and sagittal reconstruction was performed. A weight based protocol using automatic tube modulation was used to optimize exposure pa rameters. Examination the posterior fossa shows a normal-sized midline fourth ventricle. No mass, hemorrhage,or abnormal extra axial fluid collection is identified. Focal prominence is noted. Supratentorially, the lateral and third ventricles are mildly increased in size. There may normal in contour and position. No mass, hemorrhage, or abnormal extra-axial fluid collection is identified.Sulcal prominence is noted. The jeong-white matter differentiation is well preserved. No hyperdense vessel or loss of the insular ribbon is appreciated. Visualized osseous structures, paranasal sinuses and orbits are unremarkable. There is a air-fluid level in the right mastoid air cell. Evaluation of the cervical spine was performed with multislice acquisition from the skull base through the apices the lungs with axial, coronal, and sagittal reconstruction. A weight based protocol using automatic tube modulation was used to optimize exposure parameters. 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 There is fusion of the anterior arch of C1 and the proximal dens fragment. This is unchanged. There is interbody fusion/severe arthritic change at C5-6 and milder changes at C6-7. The facet joints show fusion from C3 through C5 6. Prevertebral soft tissues are within normal limits. No epidural hematoma is appreciated. As visualized, the apices of the lungs are unremarkable. IMPRESSION: No evidence of acute intracranial abnormality. Findings are consistent with right mastoid sinusitis. Stable degenerative and post traumatic changes in the cervical spine. No evidence of acute osseous abnormality. Examination [id number] and [id number]. Thank you for allowing me to participate in the care of this patient. WSN: [id number] Ordering Physician: Perico Matute Dictated By: Patrick Barton MD Dictated Date/Time: 02/01/25 11:29 a Reviewed By: Patrick Barton MD Signed By: Patrick Barton MD Signed Date/Time: 02/01/25 11:29 am Transcribed By: BUCKY Transcribed Date/Time: 02/01/25 11:28 am * Exam Date Time Procedure Performing Provider Status 02/01/25 10:[address] Head/Brain W/O Contrast Auth (Verified) Notes: (CT Head/Brain W/O Contrast) Reason For Exam: Trauma RESULT: CT Head/Brain W/O Contrast CT of the head and cervical spine dated February 01, 2025. Comparison films are from January 16, 2025. HISTORY: Pain secondary to trauma. FINDINGS: CT of the head was performed with multislice acquisition from the foramen magnum to the vertex. No intravenous contrast material was utilized. Axial, coronal, and sagittal reconstruction was performed. A weight based protocol using automatic tube modulation was used to optimize exposure pa rameters. Examination the posterior fossa shows a normal-sized midline fourth ventricle. No mass, hemorrhage,or abnormal extra axial fluid collection is identified. Focal prominence is noted. Supratentorially, the lateral and third ventricles are mildly increased in size. There may normal in contour and position. No mass, hemorrhage, or abnormal extra-axial fluid collection is identified.Sulcal prominence is noted. The jeong-white matter differentiation is well preserved. No hyperdense vessel or loss of the insular ribbon is appreciated. Visualized osseous structures, paranasal sinuses and orbits are unremarkable. There is a air-fluid level in the right mastoid air cell. Evaluation of the cervical spine was performed with multislice acquisition from the skull base through the apices the lungs with axial, coronal, and sagittal reconstruction. A weight based protocol using automatic tube modulation was used to optimize exposure parameters. 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 There is fusion of the anterior arch of C1 and the proximal dens fragment. This is unchanged. There is interbody fusion/severe arthritic change at C5-6 and milder changes at C6-7. The facet joints show fusion from C3 through C5 6. Prevertebral soft tissues are within normal limits. No epidural hematoma is appreciated. As visualized, the apices of the lungs are unremarkable. IMPRESSION: No evidence of acute intracranial abnormality. Findings are consistent with right mastoid sinusitis. Stable degenerative and post traumatic changes in the cervical spine. No evidence of acute osseous abnormality. Examination [id number] and [id number]. Thank you for allowing me to participate in the care of this patient. WSN: [id number] Ordering Physician: Perico Matute Dictated By: Patrick Barton MD Dictated Date/Time: 02/01/25 11:29 a Reviewed By: Patrick Barton MD Signed By: Patrick Barton MD Signed Date/Time: 02/01/25 11:29 am Transcribed By: BUCKY Transcribed Date/Time: 02/01/25 11:28 am Social History Social History Type Response Smoking Status Never (less than 100 in lifetime) entered on: 07/22/19 Sex Sex Representation Male (finding) Patient Care team information Care Team Personnel Name: Kenny SAAB Fhamida Position: Reference Physician Member Role: PCP Address: [address] [place] [address] Telecom: Name: Fay Hung Position: [facility] Outreach Member Role: Lifetime Consulting Physician Care Team Related Persons Name: CHRISTA GREENWOOD Name: ATYA FINLEY Name: MAGDIEL RANKIN Insurance Providers Guarantor name: EZRA TUSHAR Health Plan Information #: 1 Payer: MEDICARE B Payer Identifier: NA Member Number: [id number] Group Number: NA Subscriber Identifier: [id number] Relationship to Subscriber: self Coverage Type: NA Coverage Verification Date: NA Telecom: NA Address: NA Health Plan Information #: 2 Payer: [employer] Payer Identifier: NA Member Number: [id number] Group Number: NA Subscriber Identifier: [id number] Relationship to Subscriber: self Coverage Type: MEDICAID Coverage Verification Date: NA Telecom: NA Address: NA
--- NOTE | ~2025-02-05 | US_ITS ---
EXAMINATION: US COMPLETE ABDOMEN WITH LIVER ELASTOGRAPHY CLINICAL INFORMATION: R79.89 - Other specified abnormal findings of blood chemistry COMPARISON: None available. TECHNIQUE: Real-time imaging of the abdominal viscera. Noninvasive ultrasound liver fibrosis assessment is performed using Adolfo ElastPQ point quantification shear wave elastography (pSWE) with a C5-2 MHz transducer. Multiple elastography samples are obtained. FINDINGS: PANCREAS: The visualized pancreatic head and body are normal in appearance. The remainder of the pancreas is obscured from visualization by the overlying bowel gas. ABDOMINAL AORTA: No aortic aneurysm is seen. INFERIOR VENA CAVA: Visualized portions are normal. LIVER: The liver demonstrates normal size, contour with hypoechogenicity. No focal lesion or intrahepatic biliary duct dilatation. The right lobe measures 19 cm in length. The left lobe measures 7 cm in length. Portal is patent with a normal direction of flow and a continuously forward venous waveform. Shear wave liver elastography was nondiagnostic due to patient movement. GALLBLADDER: The gallbladder is physiologically distended without evidence of stones, sludge, polyps, wall thickening or pericholecystic fluid. COMMON BILE DUCT: Normal in caliber measuring 0.5 cm in diameter. RIGHT KIDNEY: No hydronephrosis. No renal calculi or focal parenchymal lesions. The kidney measures 9 cm in maximum dimension. LEFT KIDNEY: No hydronephrosis. No renal calculi or focal parenchymal lesions. The kidney measures 10 cm in maximum dimension. SPLEEN: Unremarkable. The spleen measures 7 cm in maximum dimension. FREE FLUID: None seen. US/US abdomen comp w elastography IMPRESSION: Elastography could not be performed. The patient was moving and crying during the examination. Probable hepatic steatosis. Liver appears uniformly hyperechoic. Electronically signed by: Liborio Pedroza MD 02/05/2025 11:16 AM EDT
--- OUTSIDE RECORDS SUMMARY | 2025-02-05 10:13 | XMS_ITS | Clinical Summary ---
Author Organization [facility] Address [address] [place] [phone] Phone Care Team Providers Care Base Remover Name Role Phone Zane Cox MD Primary Care Provider [phone] Allergies Active Allergy Reactions Criticality Noted Date [...] mouth 1 (one) time each day. Active bisacodyL (DULCOLAX) 10 mg suppository Insert [...] 1 Tablet by mouth at bedtime. Active ibuprofen (ADVIL,MOTRIN) 200 mg tablet Take [...] 0.5 Tablets by mouth daily. 4 Active atorvastatin (LIPITOR) 10 mg tablet Take 1 tablet (10 mg total) by mouth at bedtime. 90 each 1 5 Active ferrous sulfate 325 mg (65 mg [...] 90 tablet 3 5 09/12/19 26 Active clotrimazole (LOTRIMIN) 1 % cream Apply topically 2 (two) times a day. 30 g 5 5 Active chlorhexidine (PERIDEX) 0.12 % solution Use 15 mL in the mouth or throat if needed for wound care. 480 mL 3 5 Active finasteride (PROSCAR) 5 mg tablet Take 1 tablet (5 mg total) by mouth 1 (one) time each day. Do not crush, chew, or split. 90 each 3 5 10/23/19 26 Active Active Problems Problem Noted Date Diagnosed Date Moderate early onset Alzheim er's dementia ([facility] V24, [facility] V28) 08/18/2023 Vitamin D deficiency 12/13/2022 Gout 08/10/2022 Prediabetes 09/01/2021 COVID-19 virus infection 06/25/2021 Benign prostatic hyperplasia 11/13/2020 Cognitive impairment 11/13/2020 Closed fracture of odontoid process of axis ([facility] V24, 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 Omar MATTHEWS update Down syndrome 08/01/2005 Hypothyroidism 08/01/2005 Encounters Date Type Department Care Team Description 12/31/2024 Telephone Internal Medicine [facility] [address] [facility] [address] [place] [address] Zane Cox MD 11/12/2024 Telephone Internal Medicine - [facility] [address] [facility] [address] [place] [address] Mikayla Carcamo MA from Last 3 Months Immunizations Name Administration Dates Next Due Hepatitis B (Hqppzkf-K-Svawu , Recombivax HB-Adult) 19yo and older 06/12/2019,04/18/2019,10/16/2018,01/13,07/16/2013,06/10/2013 [...] for your loved ones. For example, child care sitter or elderly care for an older adult? [...] Tests (FOBT/FIT) 07/01/2023 07/01/2022 COVID-19 Vaccine ( - season) 2025 01/13/2022, 07/09/2020, 06/15/2020 Influenza Vaccine (#1) 2025 , 02/17/2023, 03/25/2022, Additional history exists Medicare Annual Wellness Visit 02/18/2025 02/19/2024 Social Influencers of Health Screening 08/14/2025 08/14/2024 [...] Pneumococcal Vaccine: 50+ Years Completed 02/17/2023, 06/03/2004 Depression Screening Completed 08/14/2024, 02/19/20 24 HIB Vaccines Aged Out No longer eligi [...] Procedure Name Priority Date/Time Associated Diagnosis Comments DEPRESSION SCREENING Routine 02/19/2024 FALLS RISK ASSESSMENT Routine 02/19/2024 LIPID PANEL Routine 02/19/2024 HEPATITIS C SCREENING Routine 12/13/2022 STOOL BASED TEST Routine 07/01/2022 from Last 3 Months or Most Recently Relevant to Health Maintenance Results * Falls Risk Assessment (02/19/2024) [facility] Falls Risk Assessment Abstracted [facility] Provider HEALTH MAINTENANCE Final Result * Depression Screening (02/19/2024) [facility] Depression Screening Abstracted [facility] Provider HEALTH MAINTENANCE Final Result * Lipid panel (02/19/2024) [facility] LDL/HDL Ratio 3 0 - 4 Triglycerides 99 0 - 150 mg/dL Cholesterol 130 0 - 200 mg/dL HDL 46 >=40 mg/dL LDL Cholesterol 65 0 - 100 mg/dL Blood Venous blood specimen / Unknown [facility] Provider LAB BLOOD ORDERABLES Kyra l Result * Hepatitis C Screening (12/13/2022) [facility] Hepatitis C Screening Abstracted [facility] Provider HEALTH MAINTENANCE Final Result * Stool Based Tests (FOBT/FIT) (07/01/2022) [facility] Colorectal Cancer Screening: Stool Based Tests No Interpretation , Abstracted us Historical Provider HEALTH MAINTENANCE Final Result from Last 3 Months or Most Recently Relevant to Health Maintenance Insurance MEDICA[place] - [place] MEDICARE Care Teams Base Remover Relationship Specialty Start Date End Date Zane Cox MD [address] [place] [phone] PCP - General 05/09/22
--- OUTSIDE RECORDS SUMMARY | 2025-02-05 10:13 | XMS_ITS ---
Author Name [facility] Organization Unknown Care Team Organization Name Specialty Phone Email Start Date End Da rojelio [facility] 01/22/2025
--- OUTSIDE RECORDS SUMMARY | 2025-02-05 10:13 | XMS_ITS | Encounter Summary ---
Author Organization [facility] Address [address] [place] [address] Care Team Providers Care Satellite Manager Name Role Phone Zane Cox MD Primary Care Provider [phone] Reason for Visit * Reason Onset Date Comments Forms: Physician Orders 12/31/2024 Encounter Details Date Type Department Care Team ([facility] st Contact Info) Description 12/31/2024 Telephone Internal Medicine - [address] [place] [address] Zane Cox MD [address] [place] [address] Social History Tobacco Use Types Packs/Day Years [...] for your loved ones. For example, child custody evaluator or elderly care for an older adult? [...] as of this encounter Progress Notes * Mikayla Carcamo MA - 01/01/2025 10:34 AM EDT Placed in providers folder for signature. * Stuart Meredith - 12/31/2024 2:16 PM EDT Physician orders dropped off Call [phone] or [phone] When completed call for pickup. documented in this encounter Plan of Treatment Not on file documented as of this encounter Visit Diagnoses Not on filedocumented in this encounter Additional Health Concerns Assessment Noted Time PHQ-9 Depression Total Score: 0 08/15/19 25 1:15 PM EDT documented as of this encounter Care Teams Satellite Manager Relationship Specialty Start Date End Date Zane Cox MD [address] [place] [phone] PCP - General 05/09/22 documented as of this encounter
--- OUTSIDE RECORDS SUMMARY | 2025-02-05 10:13 | XMS_ITS | Patient Health Record ---
[facility] Organization [facility] Address [address] [place] [address] Care Team Providers Care Convenience Store Manager Name Role Phone Cox, Gastonirais Primary Care Provider Tor Warner Unavailable [phone] Allergies Allergen (clinical drug ingredient) Drug/Non Drug Allergy documented on EMR Reaction Allergy Type Onset Date Status dairy products (uncoded) Unknown Allergy Active Reason For Referral No Information Medications Medication SIG (Take, Route, Frequency, Duration) Notes Start Date End Date Status Donepezil HCl Active Tamsulosin HCl 0.4 MG Orally once daily Active Clotrimazole 1 % 1 application Externally Twice a day; Duration: 28 day(s) 07/20/2021 Active Allopurinol Active Atorvastatin Calcium Active Potassium Citrate ER Not-Taking Acetaminophen 325 mg prn Active Lipitor Not-Taking Polyethylene Glycol Active Dulcolax Not-Taking Memantine HCl ER 7 MG 1 capsule Orally O nce a day Active Robitussin Chest Congestion Not-Taking Chlorhexidine Gluconate 0.12 % Mouth/Throat Active Colchicine 0.6 MG 1 tablet Orally PRN Active Tussin prn Not-Taking Bisacodyl Active Finasteride 5 MG 1 tablet Orally Once a day Not-Taking Bacitracin Active Zyloprim Not-Taking Docusate Sodium Acti ve Flomax Active Finasteride Active Suppository Base Not -Taking Fiber Not-Taking MiraLax Active Levothyroxine Sodium 150 MCG 1 tablet in the morning on an empty stomach Orally mon-sat Active ibuprofen Active guaiFENesin Active Pantoprazole Sodium Active Ammonium Lactate 12 % APPLY TO AFFECTED AREA ON FEET TWICE DAILY; Duration: 30 Active Dicyclomine HCl Acti ve Vitamin D Active Selenium Sulfide Act lore Mylanta Active Melatonin Active Ferrous Sulfate Acti ve Immunizations Vaccine Route Administration Date Status Comme nts Influenza Unknown 03/22/2019 Administered Influenza Unknown 02/06/2024 Administered Social History Tobacco Use: Social History Observation Description Date Details (start date - stop date) Never Smoker NA - NA Tobacco use other than smoking: Question Answer Notes Are you an other tobacco user? No Tobacco Control (Standard) Question Answer Notes Tobacco use: Nonsmoker Additional Findings: Tobacco non-user Current no nsmoker AUDIT-C (Standard) Question Answer Notes Did you have a drink containing alcohol in the p ast year? No Points 0 Interpretation Negative Problems Problem Type SNOMED Code ICD Code Onset Dates Problem Status W/U Status Risk Notes Problem Bilateral atherosclerosis of arteries of lower limbs (disorder) ([id number] ) Atherosclerosis of [place] artery of both lower extremities, with unspecified presence of clinical manifestation (I70.203) Active confirmed Vital Signs Blood pressure diastolic 63 mm Hg 12/23/2024 Height 5ft 6in in 12/23/2024 Blood pressure systolic 129 mm Hg 12/23/2024 Weight 141 lbs 12/23/2024 BMI 22.76 kg/m2 12/23/2024 Procedures Procedure Date Ordered Date Performed Result Body Sit e 35308-CHWDIVB NAIL, 6 OR MORE 03/07/2024 N/A 82887-TDYC SKIN LESIONS, 2 TO 4 03/07/2024 N/A 59546-QLUWFBJ NAIL, 6 OR MORE 06/17/2024 N/A 09302-MMLS SKIN LESIONS, 2 TO 4 06/17/2024 N/A 87406-EGKVMFC NAIL, 6 OR MORE 09/23/2024 N/A 67500-WCXW SKIN LESIONS, 2 TO 4 09/23/2024 N/A 80445-TLITFUQ NAIL, 6 OR MORE 12/23/2024 N/A 32106-TZZD SKIN LESIONS, 2 TO 4 12/23/2024 N/A Encounters Encounter Location Date Provider Diagnosis [facility] [address] [address] 03/07/2024 Tor Cruz Atherosclerosis of [place] artery of both lower extremities, with unspecified presence of clinical manifestation I70.203 ; Tinea unguium B35.1 ; Pain in right toe(s) M79.674 and Pain in left toe(s) M79.675 [facility] [address] [address] 06/17/2024 Tor Anthony Atherosclerosis of [place] artery of both lower extremities, with unspecified presence of clinical manifestation I70.203 ; Tinea unguium B35.1 ; Pain in right toe(s) M79.674 and Pain in left toe(s) M79.[address] [address] 09/23/2024 Tor Anthony Atherosclerosis of [place] artery of both lower extremities, with unspecified presence of clinical manifestation I70.203 ; Tinea unguium B35.1 ; Pain in right toe(s) M79.674 and Pain in left toe(s) M79.[address] [address] 12/23/2024 Tor Anthony Atherosclerosis of [place] artery of both lower extremities, with unspecified presence of clinical manifestation I70.203 ; Tinea unguium B35.1 ; Pain in right toe(s) M79.674 and Pain in left toe(s) M79.675 Assessments Encounter Date Diagnosis (ICD Code) Assessment Notes Treatment Notes Treatment Clinical Notes Section Notes 03/07/2024 Tinea unguium (ICD-10 - B35.1) 03/07/2024 Atherosclerosis of [place] artery of both lower extremities, with unspecified presence of clinical manifestation (ICD-10 - I70.203) 06/17/2024 Tinea unguium (ICD-10 - B35.1) 06/17/2024 Atherosclerosis of [place] artery of both lower extremities, with unspecified presence of clinical manifestation (ICD-10 - I70.203) 09/23/2024 Tinea unguium (ICD-10 - B35.1) 09/23/2024 Atherosclerosis of [place] artery of both lower extremities, with unspecified presence of clinical manifestation (ICD-10 - I70.203) 12/23/2024 Tinea unguium (ICD-10 - B35.1) 12/23/2024 Atherosclerosis of [place] artery of both lower extremities, with unspecified presence of clinical manifestation (ICD-10 - I70.203) 09/23/2024 Pain in right toe(s) (ICD-10 - M79.674) 12/23/2024 Pain in right toe(s) (ICD-10 - M79.674) 03/07/2024 Pain in right toe(s) (ICD-10 - M79.674) 06/17/2024 Pain in right toe(s) (ICD-10 - M79.674) 06/17/2024 Pain in left toe(s) (ICD-10 - M79.675) 03/07/2024 Pain in left toe(s) (ICD-10 - M79.675) 09/23/2024 Pain in left toe(s) (ICD-10 - M79.675) 12/23/2024 Pain in left toe(s) (ICD-10 - M79.675) Plan Of Treatment Pending Test Test Name Order Date 38285-TUMNFZU NAIL, 6 OR MORE 02/10/2011 77106-IFHMMXJ NAIL, 6 OR MORE 05/12/2011 06460-XFTOJXS NAIL, 6 OR MORE 10/17/2011 78106-TSNHFKQ NAIL, 6 OR MORE 02/20/2012 58197-BDVWYIN NAIL, 6 OR MORE 04/30/2012 72316-MFLHUIP NAIL, 6 OR MORE 08/01/2012 91670-DULOSFO NAIL, 6 OR MORE 10/17/2012 42943-EHZEYCB NAIL, 6 OR MORE 02/07/2013 12586-ANHNSLF NAIL, 6 OR MORE 05/09/2013 68897-XWWJSHC NAIL, 6 OR MORE 08/08/2013 01577-URHCQBH NAIL, 6 OR MORE 12/05/2013 25631-HSPHLJT NAIL, 6 OR MORE 03/06/2014 31914-VSWXYJI NAIL, 6 OR MORE 06/11/2014 34199-SOXRUPK NAIL, 6 OR MORE 09/03/2014 41247-KOVGZIA NAIL, 6 OR MORE 12/10/2014 43530-BYLNGSW NAIL, 6 OR MORE 03/04/2015 55877-MQCCZHW NAIL, 6 OR MORE 06/10/2015 43775-UECVAOM NAIL, 6 OR MORE 09/02/2015 52089-XDDILJV NAIL, 6 OR MORE 11/25/2015 29635-QIHRGFZ NAIL, 6 OR MORE 02/25/2016 64819-BALPIPV NAIL, 6 OR MORE 06/29/2016 02234-XZRTQQT NAIL, 6 OR MORE 09/28/2016 67639-YQESVVS NAIL, 6 OR MORE 12/28/2016 15057-BAZLIXB NAIL, 6 OR MORE 03/29/2017 62738-OVMDOPL NAIL, 6 OR MORE 06/28/2017 80561-WVQGAUV NAIL, 6 OR MORE 10/04/2017 63408-KUOWYRH NAIL, 6 OR MORE 02/21/2018 22973-YOHMYIR NAIL, 6 OR MORE 08/01/2018 31190-WWHDCVX NAIL, 6 OR MORE 10/24/2018 37348-SASDVKA NAIL, 6 OR MORE 01/17/2019 39608-HHJHHOF NAIL, 6 OR MORE 04/18/2019 62643-YTVLUOR NAIL, 6 OR MORE 08/05/2019 47680-LJFYZJQ NAIL, 6 OR MORE 03/05/2020 29245-HXOKUVD NAIL, 6 OR MORE 08/20/2020 53843-JEWFQKS NAIL, 6 OR MORE 11/19/2020 71554-NPWIIUH NAIL, 6 OR MORE 02/25/2021 91139-JZOMTBP NAIL, 6 OR MORE 05/06/2021 16053-HTYUVZR NAIL, 6 OR MORE 07/29/2021 64627-TVIWSGT NAIL, 6 OR MORE 10/07/2021 38356-VRHEPOU NAIL, 6 OR MORE 12/15/2021 18694-EIXWQBN NAIL, 6 OR MORE 02/23/2022 87799-ICKVBEV NAIL, 6 OR MORE 05/11/2022 38918-ZLASGPM NAIL, 6 OR MORE 08/17/2022 98870-OKFUQIT NAIL, 6 OR MORE 11/30/2022 07898-KBUXOVT NAIL, 6 OR MORE 01/12/2023 20519-XYEMFAK NAIL, 6 OR MORE 03/27/2023 50241-NPYOKFF NAIL, 6 OR MORE 06/08/2023 41802-TPRQAAI NAIL, 6 OR MORE 09/07/2023 88158-ITYYKGG NAIL, 6 OR MORE 12/14/2023 71802-HZRQVOI NAIL, 6 OR MORE 03/07/2024 06878-EXHOPVN NAIL, 6 OR MORE 06/17/2024 88355-BHGYXQM NAIL, 6 OR MORE 09/23/2024 88745-OPXRAZR NAIL, 6 OR MORE 12/23/2024 78118-Xfdy Destruction, 06-1811/30/2022 10889-Gyng Destruction, 06-1808/17/2022 35687-Dvtw Destruction, 06-1802/10/2011 51034-Bnsj Destruction, 06-1810/12/2022 59060-Imuw Destruction, 06-1805/11/2022 67405-Rfxk Destruction, 06-1806/29/2022 16661-Pnry Destruction, 06-1802/23/2022 68163-Xqwq Destruction, 06-1812/15/2021 23057-Qnvh Destruction, 06-1810/07/2021 82039-Agtj Destruction, 06-1807/29/2021 46668-Najp Destruction, 06-1805/06/2021 85612-Koql Destruction, 06-1802/25/2021 43768-Mpem Destruction, 06-1811/19/2020 37564-Jcez Destruction, 06-1808/20/2020 79508-Rvst Destruction, 06-1803/05/2020 05839-Alrs Destruction, 06-1808/05/2019 94746-Cecr Destruction, 06-1804/18/2019 62404-Cqof Destruction, 06-1801/17/2019 66067-Duke Destruction, 06-1810/24/2018 71685-Rxie Destruction, 06-1808/01/2018 50699-Jeew Destruction, 06-1802/21/2018 31928-Ilvd Destruction, 06-1810/04/2017 09496-Umpp Destruction, 06-1806/28/2017 30819-Kipn Destruction, 06-1803/29/2017 33905-Uuwf Destruction, 06-1809/28/2016 04857-Pjrs Destruction, 06-1812/28/2016 28068-Oiof Destruction, 06-1806/29/2016 69337-Zhjf Destruction, 06-1802/25/2016 15344-Hqyf Destruction, 06-1811/25/2015 15450-Ipnj Destruction, 14 09/02/2015 97272-Uqtd Destruction, 06-1806/10/2015 76203-Ncfv Destruction, 06-1803/04/2015 69106-Nolw Destruction, 06-1812/10/2014 65131-Pzen Destruction, 06-1809/03/2014 10418-Jmlj Destruction, 06-1806/11/2014 64648-Aksp Destruction, 06-1803/06/2014 89113-Gzha Destruction, 06-1812/05/2013 26866-Sbhp Destruction, 06-1808/08/2013 45616-Oomm Destruction, 06-1805/09/2013 78749-Jads Destruction, 06-1802/07/2013 33462-Vkxz Destruction, 06-1810/17/2012 51801-Uqur Destruction, 06-1808/01/2012 81539-Zhun Destruction, 06-1804/30/2012 28244-Lbcd Destruction, 06-1802/20/2012 36050-Qsrf Destruction, 06-1810/17/2011 26294-Rfer Destruction, 06-1805/12/2011 23550-FORZ SKIN LESIONS, 2 TO 4 08/18/19 23 93003-IYEW SKIN LESIONS, 2 TO 4 12/01/19 23 94103-KTIT SKIN LESIONS, 2 TO 4 01/13/20 23 58952-LPBN SKIN LESIONS, 2 TO 4 12/14/19 24 97435-LDNC SKIN LESIONS, 2 TO 4 09/07/19 24 03560-TSSH SKIN LESIONS, 2 TO 4 06/08/19 24 45752-PYSG SKIN LESIONS, 2 TO 4 03/27/20 23 72139-XFHW SKIN LESIONS, 2 TO 4 12/24/19 25 28866-TYIS SKIN LESIONS, 2 TO 4 09/24/19 25 66017-ZKKO SKIN LESIONS, 2 TO 4 06/17/19 25 03466-ZAJX SKIN LESIONS, 2 TO 4 03/07/20 24 Next Appt Details Provider Name:Tor Cruz , 03/24/2025 10:30:00 AM, [facility] [address], [place], [address], Insurance Providers Payer Name Payer Address Payer Phone Subscriber Number Group Number Insured Name Patient Relationship to Insured Coverage Start Date Coverage End Date Medicare [employer] [address] [place] [address] [phone] [id number] Mary Lou Patino Self - patient is the insured 7 Medical (General) History Medical History History ICD Code Down's syndrome thalassemia minor hyperthyroidism thyroid disorder Lactose intolerance Alzheimers disease Surgical History Surgery Date(Month/Year) Hospitalization History Reason Date(Month/Year) [facility] 12/2022 Urgent care /[facility] in [facility] 11/2018 Urgent Care [facility] for neck p ain 05/19 Patient went to [facility] for a neck spra in. 02/2015
== END 2025-02-05 09:26 | disposition home or self-care (01) ==
LOC: HO.US 09:25
PROVIDERS: PCP Student in an Organized Health Care Education/Training Program; Visit Provider Student in an Organized Health Care Education/Training Program
DX: R79.89 Other specified abnormal findings of blood chemistry (principal)
CPT/HCPCS: 76700; 76981

== ENCOUNTER → 2025-02-05 09:28 | Outpatient (BNV) | payer MEDICARE, MEDICAID, SELFPAY | PROVIDERS: PCP Student in an Organized Health Care Education/Training Program; Visit Provider Radiology Diagnostic Radiology | DX: R74.01 Elevation of levels of liver transaminase levels (principal) | CPT/HCPCS: 76700 ==